=== PATIENT | male | born 1970 | race Caucasian/White ===

== ENCOUNTER → 2017-12-05 | Outpatient (CLI) | payer OTHER ==
--- NOTE | 2017-12-06 11:02 | MR ---
EXAMINATION TYPE: MR brain wo/w con DATE OF EXAM: 12/05/2017 COMPARISON: NONE HISTORY: Seizures, Hypothyroidism, Dizzy, Gadavist 9ml TECHNIQUE: Multiplanar, multisequence images of the brain and brainstem is performed without and with IV contras t, utilizing 9 mL intravenous Gadavist . FINDINGS: Diffusion weighted images demonstrate no evidence of a recent infarct or other diffusion ab normality. There is no extra-axial fluid collection. There are 3 foci of nonspecific white matter ch sekou within the right frontal, left frontal, and right temporal subcortical white matter and deep whi te matter. Additionally nonenhancing 3 mm focus of nonspecific white matter changes noted within the right lateral yaima. These are all most commonly on the basis of remote microvascular injury. No abnor mal enhancement is seen intracranially. The ventricular system and cisternal spaces are normal in siz e and appearance. The brain volume is age appropriate. Midline structures demonstrate normal morphology. The craniocervical junction appears within normal limits. The dural venous sinuses appear patent. The globes are intact. Moderate mucosal thickening is seen within the maxillary, ethmoid, and frontal sinuses. Scant mucosal thickening is seen within the sphenoid sinuses. Mild mucosal thickening is noted within the left frontal sinus. IMPRESSION: 1. No evidence of intracranial mass, abnormal intracranial enhancement or midline shift. No evidence of acute infarct. 2. Four foci of nonspecific white matter change within the subcortical white matter, deep white matte r and right yaima most characteristic of remote microvascular injury. Other etiologies are possible rock ch as vascularity or less likely demyelinating disease. 3. Moderate paranasal sinus disease with most significant mucosal thickening in the ethmoid and maxil linn sinuses.
== END | disposition home or self-care (01) ==
LOC: RADMRIMAIN 12:09
PROVIDERS: ATTEND Internal Medicine
DX: R90.82 White matter disease, unspecified (principal); R42 Dizziness and giddiness; E03.9 Hypothyroidism, unspecified
CPT/HCPCS: 70553; A9581

== ENCOUNTER 2022-01-13 14:25 | Emergency (ER) | payer OTHER ==
[2022-01-13 14:47] VITALS: BP 125/77; PULSE 101; RESP 16; TEMP 98.2
[2022-01-13 15:09] LABS: Basophils # (A) 0.1 k/uL (0-0.2); Basophils % (A) 1 %; Eosinophils # (A) 0.3 k/uL (0-0.7); Eosinophils % (A) 3 %; HCT 46.4 % (39.0-53.0); HGB 15.6 gm/dL (13.0-17.5); Lymphocytes # (A) 2.2 k/uL (1.0-4.8); Lymphocytes % (A) 26 %; MCH 35.6 pg (25.0-35.0); MCHC 33.7 g/dL (31.0-37.0); MCV 105.7 fL (80.0-100.0); Macrocytosis Moderate; Mean Platelet Volume 6.8; Monocytes # (A) 0.7 k/uL (0-1.0); Monocytes % (A) 8 %; Neutrophils # (A) 5.1 k/uL (1.3-7.7); Neutrophils % (A) 59 %; Platelet Count 381 k/uL (150-450); RBC 4.39 m/uL (4.30-5.90); RDW 14.1 % (11.5-15.5); WBC 8.7 k/uL (3.8-10.6)
[2022-01-13 15:19] LABS: INR 0.9 (<1.2); Partial Thromboplastin Time 23.2 sec (22.0-30.0); Prothrombin Time 9.6 sec (9.0-12.0)
[2022-01-13 15:20] LABS: ALT 16 U/L (4-49); African American GFR (CKD) >90 (>60 ml/min/1.73 sqM); Albumin 3.8 g/dL (3.5-5.0); Anion Gap 5 mmol/L; Blood Urea Nitrogen 17 mg/dL (9-20); Calcium 8.7 mg/dL (8.4-10.2); Carbon Dioxide 26 mmol/L (22-30); Chloride 105 mmol/L (98-107); Glucose 87 mg/dL (74-99); Non-African American GFR(CKD) >90 (>60 ml/min/1.73 sqM); Sodium 136 mmol/L (137-145); Total Bilirubin 0.5 mg/dL (0.2-1.3); Total Protein 6.9 g/dL (6.3-8.2)
[2022-01-13 15:42] LABS: AST 26 U/L (17-59); Alkaline Phosphatase 60 U/L (38-126); Magnesium 1.8 mg/dL (1.6-2.3)
--- NOTE | 2022-01-13 16:19 | XR ---
EXAMINATION TYPE: XR chest 2V DATE OF EXAM: 01/13/2022 COMPARISON: Chest x-ray 05/13/2015 HISTORY: Chest pain, abnormal EKG TECHNIQUE: Frontal and lateral views of the chest are obtained. FINDINGS: There is no focal air space opacity, pleural effusion, or pneumothorax seen. Nodular densi ty superimposed over the lateral aspect of the first rib on the left. The cardiac silhouette size is within normal limits. Endotracheal tube is no longer seen. Patient is rotated. The osseous structure s are intact. IMPRESSION: Indeterminate left upper lobe lung nodule. Follow-up is recommended on a nonemergent bas is.
--- NOTE | 2022-01-13 17:51 | ED ---
General Adult HPI - General Chief complaint: Chest Pain Stated complaint: abd ekg/chest pain Time Seen by Provider: 01/13/22 17:30 Source: patient, RN notes reviewed, old records reviewed Mode of arrival: wheelchair Limitations: no limitations - History of Present Illness Initial comments: This is a 51-year-old male who presents emergency department stating that yesterday he had some chest pain and it felt like he couldn't take a deep breath while this occurred it lasted for approximately 2 hours and he was also diaphoretic. Patient states it eventually subsided. Patient denied any radiation of the pain. Patient denies any nausea or vomiting. Patient states he had not eaten recently. Patient stated this morning and again reoccurred lasted for about 2-1/2 hours and he was at his doctor's office they gave him some aspirin and about a half an hour later he was feeling considerably better. Patient states the only differences between today's episodes of yesterday's episode was that today's episode he did not have any diaphoresis. Patient denies any recent fever chills or cough. Patient states he is a smoker does not know about high blood pressure or high cholesterol. Patient states he has some family history of heart disease in his grandparents. Currently is pain-free. - Related Data Home Medications Medication Instructions Recorded Confirmed clonazePAM [KlonoPIN] 1 tab PO BID 07/23/14 07/23/14 Unable To Assess [Unable to Assess] 05/13/15 05/13/15 Previous Rx's Medication Instructions Recorded Ibuprofen [Motrin] 600 mg PO Q6HR PRN #20 tab 07/23/14 Allergies Allergy/AdvReac Type Severity Reaction Status Date / Time promethazine HCl Allergy Unknown Verified 01/13/22 14:46 [From Phenergan] Childhood Review of Systems ROS Statement: Those systems with pertinent positive or pertinent negative responses have been documented in the HPI. ROS Other: All systems not noted in ROS Statement are negative. Past Medical History Past Medical History: Thyroid Disorder History of Any Multi-Drug Resistant Organisms: None Reported Past Surgical History: No Surgical Hx Reported Past Psychological History: Anxiety Smoking Status: Current every day smoker Past Alcohol Use History: None Reported Past Drug Use History: None Reported General Exam - General Exam Comments Initial Comments: GENERAL: Patient is well-developed and well-nourished. Patient is nontoxic and well- hydrated and is in no acute distress. ENT: Neck is soft and supple. No significant lymphadenopathy is noted. Oropharynx is clear. Moist mucous membranes. Neck has full range of motion without eliciting any pain. EYES: The sclera were anicteric and conjunctiva were pink and moist. Extraocular movements were intact and pupils were equal round and reactive to light. Eyelids were unremarkable. PULMONARY: Unlabored respirations. Good breath sounds bilaterally. No audible rales rhonchi or wheezing was noted. CARDIOVASCULAR: There is a regular rate and rhythm without any murmurs gallops or rubs. ABDOMEN: Soft and nontender with normal bowel sounds. SKIN: Skin is clear with no lesions or rashes and otherwise unremarkable. NEUROLOGIC: Patient is alert and oriented x3. Cranial nerves II through XII are grossly intact. Motor and sensory are also intact. Normal speech, volume and content. Symmetrical smile. MUSCULOSKELETAL: Normal extremities with adequate strength and full range of motion. LYMPHATICS: No significant lymphadenopathy is noted PSYCHIATRIC: Normal psychiatric evaluation. Limitations: no limitations Course Vital Signs 01/13/22 14:43 Temperature 98.2 F Pulse Rate 101 H Respiratory 16 Rate Blood Pressure 125/77 O2 Sat by Pulse 99 Oximetry Medical Decision Making - Medical Decision Making EKG shows sinus rhythm at 94 bpm GA interval 250 QRS is a 70 Q-T intervals 320 QTC is 374. Patient's EKG shows no ST segment elevation or depression. I recommended that the patient stay overnight and have his troponin repeated as well as see cardiology. Patient states he is unable to because he has to watch his 12-year-old son and he can't leave home alone. Patient states she'll follow up with cardiology for stress test. I indicated to the patient that it was possible that he could have further chest pain and possible morbidity or mortality if he goes home he stated he understood but he had no choice. - Lab Data Result diagrams: 01/13/22 14:59 01/13/22 14:59 Lab Results 01/13/22 01/13/22 01/13/22 Range/Units 14:59 14:59 14:59 WBC 8.7 (3.8-10.6) k/uL RBC 4.39 (4.30-5.90) m/uL Hgb 15.6 (13.0-17.5) gm/dL Hct 46.4 (39.0-53.0) % MCV 105.7 H (80.0-100.0) fL MCH 35.6 H (25.0-35.0) pg MCHC 33.7 (31.0-37.0) g/dL RDW 14.1 (11.5-15.5) % Plt Count 381 (150-450) k/uL MPV 6.8 Neutrophils % 59 % Lymphocytes % 26 % Monocytes % 8 % Eosinophils % 3 % Basophils % 1 % Neutrophils # 5.1 (1.3-7.7) k/uL Lymphocytes # 2.2 (1.0-4.8) k/uL Monocytes # 0.7 (0-1.0) k/uL Eosinophils # 0.3 (0-0.7) k/uL Basophils # 0.1 (0-0.2) k/uL Macrocytosis Moderate PT 9.6 (9.0-12.0) sec INR 0.9 (<1.2) APTT 23.2 (22.0-30.0) sec Sodium 136 L (137-145) mmol/L Potassium (3.5-5.1) mmol/L Chloride 105 (98-107) mmol/L Carbon Dioxide 26 (22-30) mmol/L Anion Gap 5 mmol/L BUN 17 (9-20) mg/dL Creatinine 0.81 (0.66-1.25) mg/dL Est GFR (CKD-EPI)AfAm >90 (>60 ml/min/1.73 sqM) Est GFR (CKD-EPI)NonAf >90 (>60 ml/min/1.73 sqM) Glucose 87 (74-99) mg/dL Calcium 8.7 (8.4-10.2) mg/dL Magnesium 1.8 (1.6-2.3) mg/dL Total Bilirubin 0.5 (0.2-1.3) mg/dL AST 26 (17-59) U/L ALT 16 (4-49) U/L Alkaline Phosphatase 60 (38-126) U/L Troponin I (0.000-0.034) ng/mL Total Protein 6.9 (6.3-8.2) g/dL Albumin 3.8 (3.5-5.0) g/dL 01/13/22 Range/Units 14:59 WBC (3.8-10.6) k/uL RBC (4.30-5.90) m/uL Hgb (13.0-17.5) gm/dL Hct (39.0-53.0) % MCV (80.0-100.0) fL MCH (25.0-35.0) pg MCHC (31.0-37.0) g/dL RDW (11.5-15.5) % Plt Count (150-450) k/uL MPV Neutrophils % % Lymphocytes % % Monocytes % % Eosinophils % % Basophils % % Neutrophils # (1.3-7.7) k/uL Lymphocytes # (1.0-4.8) k/uL Monocytes # (0-1.0) k/uL Eosinophils # (0-0.7) k/uL Basophils # (0-0.2) k/uL Macrocytosis PT (9.0-12.0) sec INR (<1.2) APTT (22.0-30.0) sec Sodium (137-145) mmol/L Potassium (3.5-5.1) mmol/L Chloride (98-107) mmol/L Carbon Dioxide (22-30) mmol/L Anion Gap mmol/L BUN (9-20) mg/dL Creatinine (0.66-1.25) mg/dL Est GFR (CKD-EPI)AfAm (>60 ml/min/1.73 sqM) Est GFR (CKD-EPI)NonAf (>60 ml/min/1.73 sqM) Glucose (74-99) mg/dL Calcium (8.4-10.2) mg/dL Magnesium (1.6-2.3) mg/dL Total Bilirubin (0.2-1.3) mg/dL AST (17-59) U/L ALT (4-49) U/L Alkaline Phosphatase (38-126) U/L Troponin I <0.012 (0.000-0.034) ng/mL Total Protein (6.3-8.2) g/dL Albumin (3.5-5.0) g/dL Disposition Clinical Impression: Chest pain Disposition: Left Against Medical Advice Is patient prescribed a controlled substance at d/c from ED?: No Referrals: Murray Olivares MD [Primary Care Provider] - 1-2 days Time of Disposition: 17:51
== END 2022-01-13 18:10 | disposition left against medical advice (07) ==
LOC: EC 14:25
DX: R07.9 Chest pain, unspecified (principal); F17.200 Nicotine dependence, unspecified, uncomplicated
CPT/HCPCS: 36415; 71046; 80053; 83735; 84484; 85025; 85610; 85730; 93005; 99285

== ENCOUNTER 2022-04-17 15:38 | Emergency (ER) | payer OTHER ==
[2022-04-17] MEDS ORDERED: SODIUM CHLORIDE 0.9% 1,000 ML IV STA (15:43)
[2022-04-17] MEDS ORDERED: NITROGLYCERIN OINT 1 INCH/GM PACKET TOPICAL STA (15:43)
--- NOTE | 2022-04-17 15:49 | ED ---
General Adult HPI - General Stated complaint: Chest Pain Time Seen by Provider: 04/17/22 15:38 Source: patient, RN notes reviewed, old records reviewed - History of Present Illness Initial comments: This is a 51-year-old male who presents emergency Department complaining of chest pain when he was trying to use his lawn more. Patient also states he was drinking today. Patient states the chest pain was an 8 out of 10 when EMS arrived radiated to his jaw. Patient states she's had a heart attack before he has diabetes and has high cholesterol. Patient states after the second nitroglycerin he took the pain away completely. Patient did also take an aspirin today. Patient denies any recent fever chills or cough per patient denies any symptoms currently. Patient denies any lightheadedness or dizziness. Patient denies headache patient denies numbness weakness per patient denies abdominal pain patient denies nausea vomiting diarrhea. - Related Data Home Medications Medication Instructions Recorded Confirmed clonazePAM [KlonoPIN] 1 tab PO BID 07/23/14 07/23/14 Unable To Assess [Unable to Assess] 05/13/15 05/13/15 Previous Rx's Medication Instructions Recorded Ibuprofen [Motrin] 600 mg PO Q6HR PRN #20 tab 07/23/14 Allergies Allergy/AdvReac Type Severity Reaction Status Date / Time promethazine HCl Allergy Unknown Verified 04/17/22 15:50 [From Phenergan] Childhood Review of Systems ROS Statement: Those systems with pertinent positive or pertinent negative responses have been documented in the HPI. ROS Other: All systems not noted in ROS Statement are negative. Past Medical History Past Medical History: Thyroid Disorder History of Any Multi-Drug Resistant Organisms: None Reported Past Surgical History: No Surgical Hx Reported Past Psychological History: Anxiety Smoking Status: Current every day smoker Past Alcohol Use History: None Reported Past Drug Use History: None Reported General Exam - General Exam Comments Initial Comments: GENERAL: Patient is well-developed and well-nourished. Patient is nontoxic and well- hydrated and is in mild distress. Patient is intoxicated ENT: Neck is soft and supple. No significant lymphadenopathy is noted. Oropharynx is clear. Moist mucous membranes. Neck has full range of motion without eliciting any pain. EYES: The sclera were anicteric and conjunctiva were pink and moist. Extraocular movements were intact and pupils were equal round and reactive to light. Eyelids were unremarkable. PULMONARY: Unlabored respirations. Good breath sounds bilaterally. No audible rales rhonchi or wheezing was noted. CARDIOVASCULAR: There is a regular rate and rhythm without any murmurs gallops or rubs. ABDOMEN: Soft and nontender with normal bowel sounds. SKIN: Skin is clear with no lesions or rashes and otherwise unremarkable. NEUROLOGIC: Patient is alert and oriented x3. Cranial nerves II through XII are grossly intact. Motor and sensory are also intact. Normal speech, volume and content. Symmetrical smile. MUSCULOSKELETAL: Normal extremities with adequate strength and full range of motion. No lower extremity swelling or edema. No calf tenderness. LYMPHATICS: No significant lymphadenopathy is noted PSYCHIATRIC: Normal psychiatric evaluation. 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 Patient's QTc is 391. Patient's EKG shows no ST segment elevation or depression. Chest x-ray shows no acute abnormality Patient was highly intoxicated. Patient had no chest pain throughout his ED stay. Patient initially agreed to stay but after a while he decided to leave AMA and his decided that she would take him home even though she preferred to stay. Patient understands the consequences potentially leaving. - Lab Data Result diagrams: 04/17/22 15:54 04/17/22 15:54 Lab Results 04/17/22 04/17/22 04/17/22 Range/Units 15:54 15:54 15:54 WBC 9.8 (3.8-10.6) k/uL RBC 5.25 (4.30-5.90) m/uL Hgb 16.8 (13.0-17.5) gm/dL Hct 52.5 (39.0-53.0) % MCV 100.2 H (80.0-100.0) fL MCH 32.0 (25.0-35.0) pg MCHC 32.0 (31.0-37.0) g/dL RDW 13.8 (11.5-15.5) % Plt Count 314 (150-450) k/uL MPV 7.3 Neutrophils % 68 % Lymphocytes % 24 % Monocytes % 6 % Eosinophils % 1 % Basophils % 1 % Neutrophils # 6.7 (1.3-7.7) k/uL Lymphocytes # 2.3 (1.0-4.8) k/uL Monocytes # 0.5 (0-1.0) k/uL Eosinophils # 0.1 (0-0.7) k/uL Basophils # 0.1 (0-0.2) k/uL PT 9.9 (9.0-12.0) sec INR 0.9 (<1.2) APTT 24.0 (22.0-30.0) sec Sodium 139 (137-145) mmol/L Potassium 4.5 (3.5-5.1) mmol/L Chloride 108 H (98-107) mmol/L Carbon Dioxide 23 (22-30) mmol/L Anion Gap 8 mmol/L BUN 12 (9-20) mg/dL Creatinine 0.97 (0.66-1.25) mg/dL Est GFR (CKD-EPI)AfAm >90 (>60 ml/min/1.73 sqM) Est GFR (CKD-EPI)NonAf >90 (>60 ml/min/1.73 sqM) Glucose 91 (74-99) mg/dL Calcium 8.7 (8.4-10.2) mg/dL Magnesium 2.1 (1.6-2.3) mg/dL Total Bilirubin 0.4 (0.2-1.3) mg/dL AST 25 (17-59) U/L ALT 13 (4-49) U/L Alkaline Phosphatase 75 (38-126) U/L Troponin I (0.000-0.034) ng/mL Total Protein 6.9 (6.3-8.2) g/dL Albumin 4.0 (3.5-5.0) g/dL Serum Alcohol 197 mg/dL 04/17/22 Range/Units 15:54 WBC (3.8-10.6) k/uL RBC (4.30-5.90) m/uL Hgb (13.0-17.5) gm/dL Hct (39.0-53.0) % MCV (80.0-100.0) fL MCH (25.0-35.0) pg MCHC (31.0-37.0) g/dL RDW (11.5-15.5) % Plt Count (150-450) k/uL MPV Neutrophils % % Lymphocytes % % Monocytes % % Eosinophils % % Basophils % % Neutrophils # (1.3-7.7) k/uL Lymphocytes # (1.0-4.8) k/uL Monocytes # (0-1.0) k/uL Eosinophils # (0-0.7) k/uL Basophils # (0-0.2) k/uL PT (9.0-12.0) sec INR (<1.2) APTT (22.0-30.0) sec Sodium (137-145) mmol/L Potassium (3.5-5.1) mmol/L Chloride (98-107) mmol/L Carbon Dioxide (22-30) mmol/L Anion Gap mmol/L BUN (9-20) mg/dL Creatinine (0.66-1.25) mg/dL Est GFR (CKD-EPI)AfAm (>60 ml/min/1.73 sqM) Est GFR (CKD-EPI)NonAf (>60 ml/min/1.73 sqM) Glucose (74-99) mg/dL Calcium (8.4-10.2) mg/dL Magnesium (1.6-2.3) mg/dL Total Bilirubin (0.2-1.3) mg/dL AST (17-59) U/L ALT (4-49) U/L Alkaline Phosphatase (38-126) U/L Troponin I <0.012 (0.000-0.034) ng/mL Total Protein (6.3-8.2) g/dL Albumin (3.5-5.0) g/dL Serum Alcohol mg/dL Disposition Clinical Impression: Chest pain, Alcohol intoxication Disposition: Left Against Medical Advice Referrals: Murray Olivares MD [Primary Care Provider] - 1-2 days Time of Disposition: 17:14
[2022-04-17 15:50] VITALS: RESP 18
[2022-04-17 16:16] LABS: INR 0.9 (<1.2); Prothrombin Time 9.9 sec (9.0-12.0)
[2022-04-17 16:19] LABS: Basophils # (A) 0.1 k/uL (0-0.2); Basophils % (A) 1 %; Eosinophils # (A) 0.1 k/uL (0-0.7); Eosinophils % (A) 1 %; HCT 52.5 % (39.0-53.0); HGB 16.8 gm/dL (13.0-17.5); Lymphocytes # (A) 2.3 k/uL (1.0-4.8); Lymphocytes % (A) 24 %; MCV 100.2 fL (80.0-100.0); Mean Platelet Volume 7.3; Monocytes # (A) 0.5 k/uL (0-1.0); Monocytes % (A) 6 %; Neutrophils # (A) 6.7 k/uL (1.3-7.7); Neutrophils % (A) 68 %; Platelet Count 314 k/uL (150-450); RBC 5.25 m/uL (4.30-5.90); RDW 13.8 % (11.5-15.5); WBC 9.8 k/uL (3.8-10.6)
[2022-04-17 16:25] LABS: ALT 13 U/L (4-49); AST 25 U/L (17-59); African American GFR (CKD) >90 (>60 ml/min/1.73 sqM); Alkaline Phosphatase 75 U/L (38-126); Anion Gap 8 mmol/L; Blood Urea Nitrogen 12 mg/dL (9-20); Calcium 8.7 mg/dL (8.4-10.2); Carbon Dioxide 23 mmol/L (22-30); Chloride 108 mmol/L (98-107); Glucose 91 mg/dL (74-99); Magnesium 2.1 mg/dL (1.6-2.3); Non-African American GFR(CKD) >90 (>60 ml/min/1.73 sqM); Potassium 4.5 mmol/L (3.5-5.1); Sodium 139 mmol/L (137-145); Total Bilirubin 0.4 mg/dL (0.2-1.3); Total Protein 6.9 g/dL (6.3-8.2)
--- NOTE | 2022-04-17 16:30 | XR ---
EXAMINATION TYPE: XR chest 2V DATE OF EXAM: 04/17/2022 4:21 PM COMPARISON: Chest radiographs from 01/13/2022. TECHNIQUE: XR chest 2V Frontal and lateral views of the chest. CLINICAL INDICATION:Male, 51 years old with history of Chest Pain; FINDINGS: Lungs/Pleura: There is no evidence of pleural effusion, focal consolidation, or pneumothorax. Unchan ged left upper lobe nodular-like area measuring 6 mm. Pulmonary vascularity: Unremarkable. Heart/mediastinum: Cardiomediastinal silhouette is unremarkable. Musculoskeletal: No acute osseous pathology. IMPRESSION: No acute cardiopulmonary disease/process. Unchanged left upper lobe probable calcified granuloma. This could be confirmed with CT chest in outp atient basis.
[2022-04-17 16:39] LABS: Alcohol 197 mg/dL
[2022-04-17 17:33] VITALS: BP 107/60; PULSE 101; TEMP 98
== END 2022-04-17 17:33 | disposition left against medical advice (07) ==
LOC: EC 15:38
DX: F10.129 Alcohol abuse with intoxication, unspecified (principal); R07.9 Chest pain, unspecified; F17.200 Nicotine dependence, unspecified, uncomplicated; Y90.6 Blood alcohol level of 120-199 mg/100 ml; Z53.29 Procedure and treatment not carried out because of patient's decision for other reasons; Z88.8 Allergy status to other drugs, medicaments and biological substances
CPT/HCPCS: 36415; 93005; 80053; 83735; 84484; 85025; 85610; 85730; 71046; 99285; G0480; 80320; 96360; 96361

== ENCOUNTER → 2022-05-28 | Outpatient (CLI) | payer OTHER ==
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
== END ==
LOC: SLEEP 11:17
PROVIDERS: ATTEND Internal Medicine
DX: G47.33 Obstructive sleep apnea (adult) (pediatric) (principal); I10 Essential (primary) hypertension; E03.9 Hypothyroidism, unspecified; I25.10 Atherosclerotic heart disease of native coronary artery without angina pectoris; Z86.73 Personal history of transient ischemic attack (TIA), and cerebral infarction without residual deficits; F51.04 Psychophysiologic insomnia; Z79.890 Hormone replacement therapy; F17.210 Nicotine dependence, cigarettes, uncomplicated; Z88.8 Allergy status to other drugs, medicaments and biological substances
CPT/HCPCS: 99211

== ENCOUNTER 2022-07-01 19:59 | Emergency (ER) | payer OTHER ==
[2022-07-01 20:13] VITALS: BP 115/80; PULSE 112; RESP 16; TEMP 98.1
--- NOTE | 2022-07-01 20:42 | ED ---
General Adult HPI - General Chief complaint: Alcohol Stated complaint: ETOH Time Seen by Provider: 07/01/22 20:11 Source: patient, EMS Mode of arrival: EMS Limitations: no limitations - History of Present Illness Initial comments: Dictation was produced using Compiere dictation software. please excuse any grammatical, word or spelling errors. Chief Complaint: 51-year-old male brought in by EMS for alcohol intoxication History of Present Illness: Patient's 51-year-old male who presents to the emergency department for alcohol intoxication. EMS was called by patient's ex- fiance. He doesn't live at the same residence. Johnny provided history of present illness over the phone. She states she called EMS because patient has been showing signs of erratic behavior. He takes the medications for recent surgery and he is also on heart medications and hasn't 85% blockage in one of his coronary arteries. Scheduled to have that pro cedure performed in the near future. He's been taking alcohol and taking his pain medications while not taking his cardiac and thyroid medications. Patient denies any suicidal or homicidal ideation. Patient has any complaints at this time. Patient states he does not drink alcohol on a regular basis. The ROS documented in this emergency department record has been reviewed and confirmed by me. Those systems with pertinent positive or negative responses have been documented in the HPI. All other systems are other negative and/or noncontributory. PHYSICAL EXAM: General Impression: Alert and oriented x3, not in acute distress HEENT: Normocephalic atraumatic, extra-ocular movements intact, pupils equal and reactive to light bilaterally, mucous membranes moist. Cardiovascular: Heart regular rate and rhythm Chest: Able to complete full sentences, no retractions, no tachypnea Abdomen: abdomen soft, non-tender, non-distended, no organomegaly Musculoskeletal: Pulses present and equal in all extremities, no peripheral edema Motor: no focal deficits noted Neurological: CN II-XII grossly intact, no focal motor or sensory deficits noted and laboratory with no calm medications Skin: Intact with no visualized rashes Psych: Normal affect and mood ED course: 51-year-old male by EMS from home after his ex-fiance called EMS on him for alcohol intoxication. Patient is coherent. He did admit to consuming alcohol today. Patient refusing IV blood draw, EKG or manager company. Patient is well-appearing. He does appear to be mildly inebriated however he is coherent and understandable. Fiance states that patient has legal residence at their house. Ex-antelmo reports that she refuses to come to pick him up. EMS reported that patient was wandering into other people's houses. Patient states that he was helping his neighbor fixed clogged drain. States that he was invited over. Patient's ex-antelmo Long ultimately did come to picking table worker the patient. Patient reevaluated at 10:10 PM found to be stable medical condition. Patient is agreeable at discharge he is good disposition. - Related Data Home Medications Medication Instructions Recorded Confirmed clonazePAM [KlonoPIN] 1 tab PO BID 07/23/14 07/23/14 Unable To Assess [Unable to Assess] 05/13/15 05/13/15 Previous Rx's Medication Instructions Recorded Ibuprofen [Motrin] 600 mg PO Q6HR PRN #20 tab 07/23/14 Allergies Allergy/AdvReac Type Severity Reaction Status Date / Time promethazine HCl Allergy Unknown Verified 04/17/22 15:50 [From Phenergan] Childhood Review of Systems ROS Statement: Those systems with pertinent positive or pertinent negative responses have been documented in the HPI. ROS Other: All systems not noted in ROS Statement are negative. Past Medical History Past Medical History: Thyroid Disorder History of Any Multi-Drug Resistant Organisms: None Reported Past Surgical History: No Surgical Hx Reported Past Psychological History: Anxiety Smoking Status: Current every day smoker Past Alcohol Use History: None Reported Past Drug Use History: None Reported General Exam Limitations: no limitations Course Vital Signs 07/01/22 20:09 Temperature 98.1 F Pulse Rate 112 H Respiratory 16 Rate Blood Pressure 115/80 O2 Sat by Pulse 98 Oximetry Disposition Clinical Impression: Alcohol intoxication Disposition: HOME SELF-CARE Condition: Fair Instructions (If sedation given, give patient instructions): Alcohol Intoxication (ED) Is patient prescribed a controlled substance at d/c from ED?: No Referrals: Murray Olivares MD [Primary Care Provider] - 1-2 days Time of Disposition: 22:07
== END 2022-07-01 22:08 | disposition home or self-care (01) ==
LOC: EC 19:59
DX: F10.929 Alcohol use, unspecified with intoxication, unspecified (principal); E07.9 Disorder of thyroid, unspecified; F41.9 Anxiety disorder, unspecified; F17.200 Nicotine dependence, unspecified, uncomplicated; Z88.8 Allergy status to other drugs, medicaments and biological substances; Z79.899 Other long term (current) drug therapy
CPT/HCPCS: 99284

== ENCOUNTER 2022-07-05 18:54 | Emergency (ER) | payer OTHER ==
[2022-07-05 19:11] VITALS: BP 138/90; PULSE 97; RESP 18; TEMP 97
--- NOTE | 2022-07-05 23:04 | ED ---
Alcohol HPI - General Chief Complaint: Alcohol Stated Complaint: EPS eval Time Seen by Provider: 07/05/22 23:03 Source: patient, RN notes reviewed, old records reviewed Mode of arrival: wheelchair Limitations: no limitations - History of Present Illness Initial Comments: This is a 51-year-old male to the emergency department for evaluation patient poor strain secondary significant intoxication. Patient presents today under alcohol intoxication family was hoping patient can get her go through detox. Patient refusing to stay in the hospital currently. Patient is not homicidal or suicidal. 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(s) Previous Visits for Alcohol Intoxication?: Yes Recent Trauma: No Associated Symptoms: denies other symptoms Treatments Prior to Arrival: none Chronic Alcohol Use: Yes - Related Data Home Medications Medication Instructions Recorded Confirmed clonazePAM [KlonoPIN] 1 tab PO BID 07/23/14 07/23/14 Unable To Assess [Unable to Assess] 05/13/15 05/13/15 Previous Rx's Medication Instructions Recorded Ibuprofen [Motrin] 600 mg PO Q6HR PRN #20 tab 07/23/14 Allergies Allergy/AdvReac Type Severity Reaction Status Date / Time promethazine HCl Allergy Unknown Verified 07/05/22 19:05 [From Phenergan] Childhood Review of Systems ROS Statement: Those systems with pertinent positive or pertinent negative responses have been documented in the HPI. ROS Other: All systems not noted in ROS Statement are negative. Past Medical History Past Medical History: Myocardial Infarction ([place]), Thyroid Disorder History of Any Multi-Drug Resistant Organisms: None Reported Past Surgical History: No Surgical Hx Reported Past Psychological History: Anxiety Smoking Status: Current every day smoker Past Alcohol Use History: None Reported Past Drug Use History: None Reported General Exam Limitations: no limitations General appearance: appears intoxicated Head exam: Present: atraumatic, normocephalic, normal inspection Eye exam: Present: normal appearance, PERRL, EOMI. Absent: scleral icterus, conjunctival injection, periorbital swelling ENT exam: Present: normal exam, mucous membranes moist Neck exam: Present: normal inspection. Absent: tenderness, meningismus, lymphadenopathy Respiratory exam: Present: normal lung sounds bilaterally. Absent: respiratory distress, wheezes, rales, rhonchi, stridor Cardiovascular Exam: Present: regular rate, normal rhythm, normal heart sounds. Absent: systolic murmur, diastolic murmur, rubs, gallop, clicks GI/Abdominal exam: Present: soft, normal bowel sounds. Absent: distended, tenderness, guarding, rebound, rigid Extremities exam: Present: normal inspection, full ROM, normal capillary refill. Absent: tenderness, pedal edema, joint swelling, calf tenderness Back exam: Present: normal inspection Neurological exam: Present: alert, oriented X3, CN II-XII intact Psychiatric exam: Present: normal affect, normal mood Skin exam: Present: warm, dry, intact, normal color. Absent: rash Course Vital Signs 07/05/22 19:05 Temperature 97 F L Pulse Rate 97 Respiratory 18 Rate Blood Pressure 138/90 O2 Sat by Pulse 100 Oximetry - Reevaluation(s) Reevaluation #1: 07/06/22 00:22 Records reviewed Reevaluation #2: 07/06/22 00:22 Patient continues to refuse to stay, family his neck and petition patient for psychiatric evaluation Reevaluation #3: 07/06/22 00:22 Patient will be discharged home Medical Decision Making - Medical Decision Making 51 male to the emergency department for evaluation. Patient presented under alcohol intoxication, offered admission to hospital refuses, patient's family does not petition for psychiatric evaluation although patient is not homicidal or suicidal. Patient can be discharged home Disposition Clinical Impression: Alcohol intoxication Disposition: HOME SELF-CARE Condition: Fair Instructions (If sedation given, give patient instructions): Alcohol I ntoxication (ED) Is patient prescribed a controlled substance at d/c from ED?: No Referrals: Murray Olivares MD [Primary Care Provider] - 1-2 days Time of Disposition: 00:15
== END 2022-07-06 10:52 | disposition home or self-care (01) ==
LOC: EC 18:54
DX: F10.929 Alcohol use, unspecified with intoxication, unspecified (principal); F41.9 Anxiety disorder, unspecified; I21.9 Acute myocardial infarction, unspecified; E07.9 Disorder of thyroid, unspecified; F17.200 Nicotine dependence, unspecified, uncomplicated; Z88.8 Allergy status to other drugs, medicaments and biological substances
CPT/HCPCS: 99283

== ENCOUNTER 2022-07-07 19:11 | Inpatient (IN) | payer OTHER ==
--- NOTE | 2022-07-07 23:33 | ED ---
Alcohol HPI - General Chief Complaint: Alcohol Stated Complaint: Mouth pain/Detox Time Seen by Provider: 07/07/22 23:25 Source: patient, RN notes reviewed, old records reviewed Mode of arrival: ambulatory - History of Present Illness Initial Comments: This is a 51-year-old male to the emergency department for evaluation. Multiple ER visits this week for similar issue. His walk out both prior times. Today for alcohol intoxication alcohol withdrawal, significant intoxication currently. Patient is weak lightheaded dizzy does not feel well feel sick nauseous vomiting. 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(s) Previous Visits for Alcohol Intoxication?: Yes Recent Trauma: No Associated Symptoms: nausea, vomiting Treatments Prior to Arrival: none Chronic Alcohol Use: Yes - Related Data Home Medications Medication Instructions Recorded Confirmed clonazePAM [KlonoPIN] 1 tab PO BID 07/23/14 07/23/14 Unable To Assess [Unable to Assess] 05/13/15 05/13/15 Previous Rx's Medication Instructions Recorded Ibuprofen [Motrin] 600 mg PO Q6HR PRN #20 tab 07/23/14 Allergies Allergy/AdvReac Type Severity Reaction Status Date / Time promethazine HCl Allergy Unknown Verified 07/07/22 21:16 [From Phenergan] Childhood Review of Systems ROS Statement: Those systems with pertinent positive or pertinent negative responses have been documented in the HPI. ROS Other: All systems not noted in ROS Statement are negative. Past Medical History Past Medical History: Myocardial Infarction ([place]), Thyroid Disorder History of Any Multi-Drug Resistant Organisms: None Reported Past Surgical History: No Surgical Hx Reported Past Psychological History: Anxiety Smoking Status: Current every day smoker Past Alcohol Use History: None Reported Past Drug Use History: None Reported General Exam General appearance: alert, in no apparent distress, appears intoxicated Head exam: Present: atraumatic, normocephalic, normal inspection Eye exam: Present: normal appearance, PERRL, EOMI. Absent: scleral icterus, conjunctival injection, periorbital swelling ENT exam: Present: normal exam, mucous membranes dry Neck exam: Present: normal inspection. Absent: tenderness, meningismus, lymphadenopathy Respiratory exam: Present: normal lung sounds bilaterally. Absent: respiratory distress, wheezes, rales, rhonchi, stridor Cardiovascular Exam: Present: normal rhythm, tachycardia, normal heart sounds. Absent: systolic murmur, diastolic murmur, rubs, gallop, clicks GI/Abdominal exam: Present: soft, normal bowel sounds. Absent: distended, tenderness, guarding, rebound, rigid Extremities exam: Present: normal inspection, full ROM, normal capillary refill. Absent: tenderness, pedal edema, joint swelling, calf tenderness Back exam: Present: normal inspection Neurological exam: Present: alert, oriented X3, CN II-XII intact Psychiatric exam: Present: normal affect, normal mood Skin exam: Present: warm, dry, intact, normal color. Absent: rash Course Vital Signs 07/07/22 21:12 Temperature 98.3 F Pulse Rate 119 H Respiratory 16 Rate Blood Pressure 145/75 O2 Sat by Pulse 94 L Oximetry - Reevaluation(s) Reevaluation #1: 07/08/22 00:23 Medical records reviewed Reevaluation #2: 07/08/22 01:40 patient has no improvement here in the ER Reevaluation #3: 07/08/22 01:40 patient informed results and questions answered - Consultations Consultation #1: spoke with CECILY to agrees to admit the patient Medical Decision Making - Medical Decision Making 51 male to be admitted for alcohol intoxication severe. Alcohol abuse with pending withdrawal pancreatitis, dehydration. - Lab Data Result diagrams: 07/07/22 22:14 07/07/22 22:14 Lab Results 07/07/22 07/07/22 Range/Units 22:14 22:14 WBC 8.6 (3.8-10.6) k/uL RBC 5.03 (4.30-5.90) m/uL Hgb 16.9 (13.0-17.5) gm/dL Hct 49.2 (39.0-53.0) % MCV 97.9 (80.0-100.0) fL MCH 33.7 (25.0-35.0) pg MCHC 34.4 (31.0-37.0) g/dL RDW 14.1 (11.5-15.5) % Plt Count 245 (150-450) k/uL MPV 7.5 Neutrophils % 64 % Lymphocytes % 30 % Monocytes % 3 % Eosinophils % 2 % Basophils % 1 % Neutrophils # 5.5 (1.3-7.7) k/uL Lymphocytes # 2.5 (1.0-4.8) k/uL Monocytes # 0.3 (0-1.0) k/uL Eosinophils # 0.2 (0-0.7) k/uL Basophils # 0.1 (0-0.2) k/uL Sodium 138 (137-145) mmol/L Potassium 4.2 (3.5-5.1) mmol/L Chloride 102 (98-107) mmol/L Carbon Dioxide 22 (22-30) mmol/L Anion Gap 14 mmol/L BUN 14 (9-20) mg/dL Creatinine 1.06 (0.66-1.25) mg/dL Est GFR (CKD-EPI)AfAm >90 (>60 ml/min/1.73 sqM) Est GFR (CKD-EPI)NonAf 81 (>60 ml/min/1.73 sqM) Glucose 92 (74-99) mg/dL Calcium 8.3 L (8.4-10.2) mg/dL Phosphorus 3.6 (2.5-4.5) mg/dL Magnesium 1.9 (1.6-2.3) mg/dL Total Bilirubin 0.5 (0.2-1.3) mg/dL AST 52 (17-59) U/L ALT 22 (4-49) U/L Alkaline Phosphatase 79 (38-126) U/L Total Protein 6.9 (6.3-8.2) g/dL Albumin 4.2 (3.5-5.0) g/dL Lipase 539 H (23-300) U/L TSH 52.300 H (0.465-4.680) mIU/L Serum Alcohol 267 H* mg/dL Disposition Clinical Impression: Alcohol intoxication, Alcohol withdrawal delirium, Depression, Pancreatitis Disposition: ADMITTED IP TO THIS HOSP Condition: Fair Is patient prescribed a controlled substance at d/c from ED?: No Referrals: Murary Oliavres MD [Primary Care Provider] - 1-2 days Time of Disposition: 01:35
[2022-07-07] MEDS ORDERED: SODIUM CHLORIDE 0.9% 1,000 ML IV STA ×2 (23:50)
[2022-07-07] MEDS ORDERED: LORazepam 2 MG/ML INJ IV STA (23:50)
[2022-07-07] MEDS ORDERED: SODIUM CHLORIDE 0.9% 500 ML 500 ML IV STA (23:50)
[2022-07-08 00:27] LABS: Basophils # (A) 0.1 k/uL (0-0.2); Basophils % (A) 1 %; Eosinophils # (A) 0.2 k/uL (0-0.7); Eosinophils % (A) 2 %; HCT 49.2 % (39.0-53.0); HGB 16.9 gm/dL (13.0-17.5); Lymphocytes # (A) 2.5 k/uL (1.0-4.8); Lymphocytes % (A) 30 %; MCH 33.7 pg (25.0-35.0); MCHC 34.4 g/dL (31.0-37.0); MCV 97.9 fL (80.0-100.0); Mean Platelet Volume 7.5; Monocytes # (A) 0.3 k/uL (0-1.0); Monocytes % (A) 3 %; Neutrophils # (A) 5.5 k/uL (1.3-7.7); Neutrophils % (A) 64 %; Platelet Count 245 k/uL (150-450); RBC 5.03 m/uL (4.30-5.90); RDW 14.1 % (11.5-15.5); WBC 8.6 k/uL (3.8-10.6)
[2022-07-08 00:40] LABS: ALT 22 U/L (4-49); AST 52 U/L (17-59); African American GFR (CKD) >90 (>60 ml/min/1.73 sqM); Albumin 4.2 g/dL (3.5-5.0); Alkaline Phosphatase 79 U/L (38-126); Anion Gap 14 mmol/L; Blood Urea Nitrogen 14 mg/dL (9-20); Calcium 8.3 mg/dL (8.4-10.2); Carbon Dioxide 22 mmol/L (22-30); Chloride 102 mmol/L (98-107); Glucose 92 mg/dL (74-99); Lipase 539 U/L (23-300); Magnesium 1.9 mg/dL (1.6-2.3); Non-African American GFR(CKD) 81 (>60 ml/min/1.73 sqM); Phosphorus 3.6 mg/dL (2.5-4.5); Potassium 4.2 mmol/L (3.5-5.1); Sodium 138 mmol/L (137-145); Total Bilirubin 0.5 mg/dL (0.2-1.3); Total Protein 6.9 g/dL (6.3-8.2)
[2022-07-08 00:51] LABS: Alcohol 267 mg/dL
[2022-07-08] MEDS ORDERED: THIAMINE 100 MG/ML 2 ML VIAL IM STA (01:36)
[2022-07-08] MEDS ORDERED: NALOXONE 0.4 MG/ML 1 ML VIAL IV PRN (01:36)
[2022-07-08] MEDS ORDERED: LORazepam 2 MG/ML INJ IV PRN ×3 (01:36)
[2022-07-08] MEDS ORDERED: ONDANSETRON 4 MG/2 ML VIAL IVP PRN (01:37)
[2022-07-08] MEDS ORDERED: MORPHINE SULFATE 4 MG/ML SYRINGE IV PRN (01:37)
[2022-07-08 02:08] LABS: T4, Free (Free Thyroxine) 0.53 ng/dL (0.78-2.19)
[2022-07-08] MEDS: chlordiazePOXIDE 25 MG CAP PO SCH ×5 (09:05→20:42)
[2022-07-08] MEDS: DEXTROSE 5%-0.45% NACL 1,000 ML IV SCH ×2 (09:05→17:17)
[2022-07-08] MEDS: PANTOPRAZOLE 40 MG/10 ML VIAL IV SCH (09:18)
[2022-07-08] MEDS: MULTIVITAMINS, THERA 1 EACH TAB PO SCH (09:18)
[2022-07-08] MEDS: FOLIC ACID 1 MG TAB PO SCH (09:18)
[2022-07-08] MEDS ORDERED: ALBUTEROL NEBULIZED 2.5 MG/3 ML INHALATION PRN (12:39)
[2022-07-08] MEDS ORDERED: NITROGLYCERIN SL TABS 0.4 MG TAB SUBLINGUAL PRN (12:39)
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
[2022-07-08] MEDS: METOPROLOL SUCCINATE (ER) 25 MG TAB.ER.24H PO SCH (14:38)
--- NOTE | 2022-07-08 14:49 | P.CN ---
Psychiatric Consult - . Consult date: 07/08/22 Consult:: 07/08/22 14:48 IDENTIFYING DATA: This patient is a 51-year-old male with significant history of anxiety disorder and alcohol use disorder presented to our hospital for alcohol intoxication and withdrawal HISTORY OF PRESENT ILLNESS: The patient presented to the hospital on 07/07/2022 for acute alcohol intoxication. The patient has had multiple visits to the emergency department for this similar issue and has walked out AGAINST MEDICAL ADVICE each time. Psychiatry has been consulted for further evaluation and management of depression and anxiety. Upon assessment by this provider, the patient reports that he's been feeling increasingly anxious since discussing with his surgeon the possibility of a DO NOT RESUSCITATE option in regards to his upcoming surgery. The patient states that he's been feeling increasingly anxious with his upcoming procedure for his cardiac health and has been coping by increasing his alcohol use. The patient reports that he has been drinking up to a fifth of liquor per day for the past week. He does report a significant history of alcohol use disorder and has had I history of treatment with disulfiram in the past. Currently, the patient is denying any suicidal or homicidal ideation, intention, and/or plan. He is not reporting any auditory or visual hallucinations. He reports no paranoia or delusions. Patient is currently requesting inpatient substance-abuse rehabilitation however is concerned that this would interrupt his upcoming surgery. PSYCHIATRIC HISTORY: Patient has a history of anxiety. The patient is able to recall bankruptcy prescribed Klonopin and venlafaxine. Patient denies any previous psychiatric hospitalizations. Patient denies any psychiatric outpatient follow-up. Patient denies any history of suicide attempts in the past. PAST MEDICAL HISTORY: Past Medical History: Myocardial Infarction (NH), Thyroid Disorder History of Any Multi-Drug Resistant Organisms: None Reported Past Surgical History: No Surgical Hx Reported Past Psychological History: Anxiety Smoking Status: Current every day smoker Past Alcohol Use History: None Reported Past Drug Use History: None Reported ALLERGIES: Promethazine CHEMICAL DEPENDENCY HISTORY: The patient portrays been drinking up to a fifth of liquor per day. The patient also smokes cigars daily. FAMILY PSYCHIATRIC/SUBSTANCE USE HISTORY: No reported family psychiatric history. SOCIAL HISTORY: Patient is elicited a single however does have a significant other named Mercedes. MENTAL STATUS EXAM: General Appearance: Patient appears to be stated age is alert, pleasant, and cooperative. Patient appears to have fair hygiene and grooming wearing hospital gown with fair eye contact. Behavior: Displays elevated psychomotor activity Speech: Patient's speech is fluent and nonpressured. Mood/Affect: Patient reports their mood is "very nervous", affect is congruent Suicidality/Homicidality: Patient denies having any suicidal or homicidal ideation intent or plan. Perceptions: Patient denies any visual hallucinations and denies any auditory hallucinations Though content/process: There is no evidence of any delusional thought content and thought process is linear and goal-directed. Memory and concentration: AOX3, grossly intact for the purposes of this session. Can spell "WORLD" backwards Judgment and insight: Fair IMPRESSIONS: Generalized anxiety disorder Alcohol use disorder PLAN: Continue medical management for withdrawal. Agree with Librium scheduled. We will not adjust any of his psychotropic medications at this time. The patient is expressing elevated anxiety secondary to acute alcohol withdrawal. It is recommended that he follows up in outpatient setting for further evaluation and management for anxiety disorder. Recommend discussion of the risks, benefits, treatment alternatives of his upcoming cardiac surgery. -PATIENT WAS HIGHLY ADVISED NOT TO MIX KLONOPIN AND ETOH. RECOMMEND PRIMARY DISCONTINUE SCRIPT OF KLONOPIN. -At this time patient DOES NOT meet criteria for inpatient psychiatric admission. The patient is not presented with imminent risk of harm to self or others. Primary diagnosis for this patient is generalized anxiety disorder not always disorder. He is vehemently denying any suicidal or homicidal ideation. -Delirium precautions recommended with patient including - avoiding use of narcotics and EYELET MAKER sedatives, limit anticholinergic medications when possible, frequent re-orientation, minimize use of restraints, open window shades during the day and close them at night -Would recommend the following medication changes/additions: No medication recommendations. Consider increasing effexor but we will defer at this time as he has significant cardiac history. -Patient does not require one-to-one sitter. He is desiring to be transferred to rehab however has an upcoming surgery. -Psychiatry will sign off at this point, please contact with any questions. 07/08/22 14:48
[2022-07-08] MEDS ORDERED: LORazepam 1 MG/0.5 ML VIAL IV PRN ×3 (15:24)
[2022-07-08] MEDS: NICOTINE 7MG/24HR PATCH TRANSDERM SCH (16:55)
[2022-07-08] MEDS: THIAMINE 100 MG TAB PO SCH (16:55)
[2022-07-08] MEDS: ATORVASTATIN 10 MG TAB PO SCH (20:42)
[2022-07-09] MEDS: chlordiazePOXIDE 25 MG CAP PO SCH ×3 (03:34→09:17)
[2022-07-09] MEDS: LEVOTHYROXINE 75 MCG TAB PO SCH (05:12)
[2022-07-09] MEDS ORDERED: METOPROLOL SUCCINATE (ER) 25 MG TAB.ER.24H PO SCH (09:00)
[2022-07-09] MEDS ORDERED: VENLAFAXINE HCL ER 75 MG CAP PO SCH ×2 (09:00)
[2022-07-09 09:15] LABS: Basophils # (A) 0.05 X 10*3/uL (0.00-0.10); Basophils % (A) 0.4 %; Eosinophils # (A) 0.22 X 10*3/uL (0.04-0.35); Eosinophils % (A) 1.8 %; HCT 46.1 % (39.6-50.0); HGB 15.7 g/dL (13.0-17.0); Immature Grans, Automated 0.3 %; Lymphocytes # (A) 1.91 X 10*3/uL (0.90-5.00); Lymphocytes % (A) 15.5 %; MCH 32.6 pg (27.0-32.0); MCHC 34.1 g/dL (32.0-37.0); MCV 95.6 fL (80.0-97.0); Mean Platelet Volume 10.1 fL (9.5-12.2); Monocytes # (A) 0.87 X 10*3/uL (0.20-1.00); Monocytes % (A) 7.1 %; NRBC Per 100 WBC 0 /100 WBCS (0.0-0.0); Neutrophils # (A) 9.21 X 10*3/uL (1.80-7.70); Neutrophils % (A) 74.9 %; Platelet Count 211 X 10*3/uL (140-440); RBC 4.82 X 10*6/uL (4.40-5.60); RDW 14.2 % (11.5-14.5)
[2022-07-09] MEDS: PANTOPRAZOLE 40 MG/10 ML VIAL IV SCH (09:16)
[2022-07-09] MEDS: METOPROLOL SUCCINATE (ER) 25 MG TAB.ER.24H PO SCH ×2 (09:17→20:47)
[2022-07-09] MEDS: THIAMINE 100 MG TAB PO SCH (09:17)
[2022-07-09] MEDS: MULTIVITAMINS, THERA 1 EACH TAB PO SCH (09:17)
[2022-07-09] MEDS: FOLIC ACID 1 MG TAB PO SCH (09:17)
[2022-07-09] MEDS: VENLAFAXINE HCL ER 75 MG CAP PO SCH (09:18)
[2022-07-09] MEDS: NICOTINE 7MG/24HR PATCH TRANSDERM SCH (09:18)
[2022-07-09] MEDS: CALCIUM CARBONATE LIQUID 500 MG/5 ML CUP PO SCH ×3 (11:24→20:48)
[2022-07-09] MEDS: diazePAM 2 MG TAB PO SCH ×3 (11:24→20:48)
[2022-07-09 11:27] LABS: African American GFR (CKD) 99.8 (60.0-200.0); BUN/Creat Ratio 9.6 Ratio (12.00-20.00); Blood Urea Nitrogen 9.6 mg/dL (9.0-27.0); Calcium 8.2 mg/dL (8.7-10.3); Non-African American GFR(CKD) 86.2 (60.0-200.0); Potassium 3.9 mmol/L (3.5-5.5)
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
[2022-07-09] MEDS: ASPIRIN 81 MG PO SCH (18:14)
[2022-07-09] MEDS: FAMOTIDINE 20 MG TAB PO SCH (20:47)
[2022-07-09] MEDS: ATORVASTATIN 10 MG TAB PO SCH (20:47)
[2022-07-10] MEDS: LEVOTHYROXINE 75 MCG TAB PO SCH (05:09)
[2022-07-10] MEDS: NICOTINE 7MG/24HR PATCH TRANSDERM SCH (08:37)
[2022-07-10] MEDS: CALCIUM CARBONATE LIQUID 500 MG/5 ML CUP PO SCH ×4 (08:37→20:17)
[2022-07-10] MEDS: diazePAM 2 MG TAB PO SCH ×4 (08:38→20:17)
[2022-07-10] MEDS: FAMOTIDINE 20 MG TAB PO SCH ×2 (08:38→20:17)
[2022-07-10] MEDS: VENLAFAXINE HCL ER 75 MG CAP PO SCH (08:38)
[2022-07-10] MEDS: THIAMINE 100 MG TAB PO SCH (08:38)
[2022-07-10] MEDS: FOLIC ACID 1 MG TAB PO SCH (08:38)
[2022-07-10] MEDS: ASPIRIN 81 MG PO SCH (08:38)
[2022-07-10] MEDS: MULTIVITAMINS, THERA 1 EACH TAB PO SCH (08:38)
[2022-07-10] MEDS: METOPROLOL SUCCINATE (ER) 25 MG TAB.ER.24H PO SCH ×2 (08:41→20:17)
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
[2022-07-10] MEDS: ATORVASTATIN 10 MG TAB PO SCH (20:17)
[2022-07-11] MEDS: LEVOTHYROXINE 75 MCG TAB PO SCH (05:11)
[2022-07-11 06:58] VITALS: BP 126/68; PULSE 71; RESP 14; TEMP 98.5
[2022-07-11] MEDS: CALCIUM CARBONATE LIQUID 500 MG/5 ML CUP PO SCH (08:08)
[2022-07-11] MEDS: METOPROLOL SUCCINATE (ER) 25 MG TAB.ER.24H PO SCH (08:08)
[2022-07-11] MEDS: THIAMINE 100 MG TAB PO SCH (08:08)
[2022-07-11] MEDS: VENLAFAXINE HCL ER 75 MG CAP PO SCH (08:08)
[2022-07-11] MEDS: MULTIVITAMINS, THERA 1 EACH TAB PO SCH (08:08)
[2022-07-11] MEDS: ASPIRIN 81 MG PO SCH (08:09)
[2022-07-11] MEDS: NICOTINE 7MG/24HR PATCH TRANSDERM SCH (08:09)
[2022-07-11] MEDS: FAMOTIDINE 20 MG TAB PO SCH (08:09)
[2022-07-11] MEDS: FOLIC ACID 1 MG TAB PO SCH (08:09)
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
== END 2022-07-11 10:30 | disposition home or self-care (01) | DRG 896 ==
LOC: EC 19:11 → 5NMEDONC 07-08 01:37
PROVIDERS: ADMIT Hospitalist; ATTEND Hospitalist
DX: F10.229 Alcohol dependence with intoxication, unspecified (principal); K85.90 Acute pancreatitis without necrosis or infection, unspecified; F10.231 Alcohol dependence with withdrawal delirium; E03.9 Hypothyroidism, unspecified; K29.00 Acute gastritis without bleeding; K21.9 Gastro-esophageal reflux disease without esophagitis; E86.0 Dehydration; Z28.310 Unvaccinated for COVID-19; Y90.8 Blood alcohol level of 240 mg/100 ml or more; F32.A Depression, unspecified; F41.1 Generalized anxiety disorder; I10 Essential (primary) hypertension; E05.90 Thyrotoxicosis, unspecified without thyrotoxic crisis or storm; I25.10 Atherosclerotic heart disease of native coronary artery without angina pectoris; I25.2 Old myocardial infarction; E66.9 Obesity, unspecified; Z68.29 Body mass index [BMI] 29.0-29.9, adult; F17.290 Nicotine dependence, other tobacco product, uncomplicated; Z71.6 Tobacco abuse counseling; Z79.890 Hormone replacement therapy; Z79.899 Other long term (current) drug therapy; Z86.73 Personal history of transient ischemic attack (TIA), and cerebral infarction without residual deficits; Z88.8 Allergy status to other drugs, medicaments and biological substances
CPT/HCPCS: 36415; 80048; 80053; 80320; 83690; 83735; 84100; 84439; 84443; 85025; 96361; 96374; 96375; 99285

== ENCOUNTER 2022-09-14 13:57 | Inpatient (IN) | payer OTHER ==
[2022-09-14] MEDS ORDERED: SODIUM CHLORIDE 0.9% 1,000 ML IV STA (14:11)
[2022-09-14] MEDS ORDERED: LORazepam 2 MG/ML INJ IV PRN ×2 (14:12)
[2022-09-14] MEDS ORDERED: THIAMINE 100 MG/ML 2 ML VIAL IM STA (14:12)
[2022-09-14 15:36] LABS: Basophils # (A) 0.1 k/uL (0-0.2); Basophils % (A) 1 %; Eosinophils # (A) 0.1 k/uL (0-0.7); Eosinophils % (A) 1 %; HCT 49.4 % (39.0-53.0); HGB 17.1 gm/dL (13.0-17.5); Lymphocytes # (A) 3.1 k/uL (1.0-4.8); Lymphocytes % (A) 25 %; MCH 33.5 pg (25.0-35.0); MCHC 34.5 g/dL (31.0-37.0); Mean Platelet Volume 7.4; Monocytes # (A) 0.6 k/uL (0-1.0); Monocytes % (A) 5 %; Neutrophils # (A) 8.3 k/uL (1.3-7.7); Neutrophils % (A) 67 %; Platelet Count 315 k/uL (150-450); RDW 13.8 % (11.5-15.5); WBC 12.4 k/uL (3.8-10.6)
[2022-09-14 15:51] LABS: INR 0.9 (<1.2)
[2022-09-14 15:52] LABS: ALT 18 U/L (4-49); AST 37 U/L (17-59); African American GFR (CKD) >90 (>60 ml/min/1.73 sqM); Albumin 4.3 g/dL (3.5-5.0); Alkaline Phosphatase 95 U/L (38-126); Amylase 85 U/L (30-110); Anion Gap 14 mmol/L; Blood Urea Nitrogen 12 mg/dL (9-20); Calcium 8.3 mg/dL (8.4-10.2); Carbon Dioxide 23 mmol/L (22-30); Chloride 106 mmol/L (98-107); Glucose 110 mg/dL (74-99); Lipase 740 U/L (23-300); Non-African American GFR(CKD) 83 (>60 ml/min/1.73 sqM); Phosphorus 3.5 mg/dL (2.5-4.5); Sodium 143 mmol/L (137-145); Total Bilirubin 0.5 mg/dL (0.2-1.3); Total Protein 7.2 g/dL (6.3-8.2)
[2022-09-14 16:02] LABS: Alcohol 474 mg/dL
--- NOTE | 2022-09-14 16:17 | ED ---
Alcohol HPI - General Chief Complaint: Alcohol Stated Complaint: ETOH Time Seen by Provider: 09/14/22 14:01 Source: EMS, RN notes reviewed Mode of arrival: EMS Limitations: no limitations - History of Present Illness Initial Comments: This is a 51-year-old male who presents to the emergency department for alcohol intoxication. Patient was checking out of the local [employer], and was found to be incredibly intoxicated. He was staying there because he had been recently evicted. Additional history is not clear at this time, as the patient is not answering questions due to his intoxicated state. The chartered wealth manager of the Hotel subsequently called EMS because he was so intoxicated that he was unable to stand. On evaluation, the patient is not answering any questions and essentially just stares at the individual speaking to him. The patient's nurse did call his sister, who said that she is visiting their father in the hospital, and is unable to come get him. He has been here several times in the past for alcohol intoxication. MD Complaint: alcohol intoxication Previous Visits for Alcohol Intoxication?: Yes Recent Trauma: No - Related Data Home Medications Medication Instructions Recorded Confirmed Albuterol Sulfate [Proair Hfa] 1 - 2 puff INHALATION RT-Q6H PRN 07/08/22 07/08/22 Levothyroxine Sodium [Synthroid] 137 mcg PO DAILY 07/08/22 07/08/22 Nitroglycerin Sl Tabs [Nitrostat] 0.4 mg SUBLINGUAL Q5M PRN 07/08/22 07/08/22 Simvastatin [Zocor] 20 mg PO HS 07/08/22 07/08/22 Venlafaxine HCl [Effexor XR] 75 mg PO DAILY 07/08/22 07/08/22 clonazePAM 1 mg PO BID 07/08/22 07/08/22 traZODone HCL [Desyrel] 50 mg PO HS 07/08/22 07/08/22 Previous Rx's Medication Instructions Recorded Aspirin 81 mg PO DAILY tab 07/11/22 Famotidine [Pepcid] 20 mg PO BID #60 tab 07/11/22 Metoprolol Succinate (ER) [Toprol 25 mg PO DAILY #1 07/11/22 XL] Nicotine 7Mg/24Hr Patch [Habitrol] 1 patch TRANSDERM DAILY #30 patch 07/11/22 amLODIPine [Norvasc] 2.5 mg PO HS #0 07/11/22 Allergies Allergy/AdvReac Type Severity Reaction Status Date / Time promethazine HCl Allergy Unknown Verified 07/08/22 08:07 [From Phenergan] Childhood Review of Systems ROS Statement: Those systems with pertinent positive or pertinent negative responses have been documented in the HPI. ROS Other: All systems not noted in ROS Statement are negative. Past Medical History Past Medical History: Myocardial Infarction ([place]), Thyroid Disorder Last Myocardial Infarction Date:: 01/12/22 History of Any Multi-Drug Resistant Organisms: None Reported Past Surgical History: No Surgical Hx Reported Past Anesthesia/Blood Transfusion Reactions: No Reported Reaction Past Psychological History: Anxiety Smoking Status: Current every day smoker Past Alcohol Use History: None Reported Past Drug Use History: None Reported General Exam Limitations: no limitations General appearance: alert, appears intoxicated Head exam: Present: atraumatic, normocephalic, normal inspection Respiratory exam: Present: normal lung sounds bilaterally. Absent: respiratory distress, wheezes, rales, rhonchi, stridor Cardiovascular Exam: Present: regular rate, normal rhythm, normal heart sounds. Absent: systolic murmur, diastolic murmur, rubs, gallop, clicks Neurological exam: Present: alert Skin exam: Present: warm, dry, intact, normal color. Absent: rash Course Vital Signs 09/14/22 14:07 Temperature 98.5 F Pulse Rate 110 H Respiratory 18 Rate Blood Pressure 129/68 O2 Sat by Pulse 94 L Oximetry Medical Decision Making - Medical Decision Making This is a 51-year-old male who presents to the emergency department for alcohol intoxication. Patient was started on the CIWA protocol and given a liter bolus of IV fluids. Serum alcohol level is 474. He is still for the most part not answering any questions. He did tell me that he was tired, and is otherwise not speaking. It is still unclear how much the patient had to drink. Patient will be admitted to medicine for alcohol intoxication. This case was discussed in detail with the attending ED physician. Presentation, findings, and treatment plan discussed in detail as well. - Lab Data Result diagrams: 09/14/22 15:18 09/14/22 15:18 Lab Results 09/14/22 09/14/22 09/14/22 Range/Units 15:18 15:18 15:18 WBC 12.4 H (3.8-10.6) k/uL RBC 5.10 (4.30-5.90) m/uL Hgb 17.1 (13.0-17.5) gm/dL Hct 49.4 (39.0-53.0) % MCV 97.0 (80.0-100.0) fL MCH 33.5 (25.0-35.0) pg MCHC 34.5 (31.0-37.0) g/dL RDW 13.8 (11.5-15.5) % Plt Count 315 (150-450) k/uL MPV 7.4 Neutrophils % 67 % Lymphocytes % 25 % Monocytes % 5 % Eosinophils % 1 % Basophils % 1 % Neutrophils # 8.3 H (1.3-7.7) k/uL Lymphocytes # 3.1 (1.0-4.8) k/uL Monocytes # 0.6 (0-1.0) k/uL Eosinophils # 0.1 (0-0.7) k/uL Basophils # 0.1 (0-0.2) k/uL PT 10.0 (9.0-12.0) sec INR 0.9 (<1.2) Sodium 143 (137-145) mmol/L Potassium 4.0 (3.5-5.1) mmol/L Chloride 106 (98-107) mmol/L Carbon Dioxide 23 (22-30) mmol/L Anion Gap 14 mmol/L BUN 12 (9-20) mg/dL Creatinine 1.04 (0.66-1.25) mg/dL Est GFR (CKD-EPI)AfAm >90 (>60 ml/min/1.73 sqM) Est GFR (CKD-EPI)NonAf 83 (>60 ml/min/1.73 sqM) Glucose 110 H (74-99) mg/dL Calcium 8.3 L (8.4-10.2) mg/dL Phosphorus 3.5 (2.5-4.5) mg/dL Magnesium 2.0 (1.6-2.3) mg/dL Total Bilirubin 0.5 (0.2-1.3) mg/dL AST 37 (17-59) U/L ALT 18 (4-49) U/L Alkaline Phosphatase 95 (38-126) U/L Total Protein 7.2 (6.3-8.2) g/dL Albumin 4.3 (3.5-5.0) g/dL Amylase 85 (30-110) U/L Lipase 740 H (23-300) U/L Serum Alcohol 474 H* mg/dL Disposition Clinical Impression: Alcohol intoxication Disposition: ADMITTED IP TO THIS HOSP Referrals: Murray Olivares MD [Primary Care Provider] - 1-2 days
[2022-09-14] MEDS: LORazepam 2 MG/ML INJ IV PRN ×2 (17:14→18:01)
[2022-09-14] MEDS ORDERED: KETOROLAC 15 MG/ML 1 ML VIAL IVP PRN (17:28)
[2022-09-14] MEDS ORDERED: ACETAMINOPHEN TAB 325 MG TAB PO PRN (17:28)
[2022-09-14] MEDS ORDERED: ONDANSETRON 4 MG/2 ML VIAL IVP PRN (17:28)
[2022-09-14] MEDS ORDERED: IBUPROFEN 400 MG TAB PO PRN (17:28)
[2022-09-14] MEDS ORDERED: NALOXONE 0.4 MG/ML 1 ML VIAL IV PRN (17:28)
[2022-09-14 19:11] LABS: Amphetamine Screen,Urine Not Detected (NotDetected); Barbiturate Screen,Urine Not Detected (NotDetected); Benzodiazepines Screen,Urine Not Detected (NotDetected); Cocaine Screen,Urine Not Detected (NotDetected); Methadone Screen, Urine Not Detected (NotDetected); Opiate Screen,Urine Not Detected (NotDetected); Phencyclidine Screen,Urine Not Detected (NotDetected); Tricyclic Antidepressant,Urine Not Detected (NotDetected); Urn Cannabinoid Scrn Not Detected (NotDetected)
[2022-09-14 19:12] LABS: Oxycodone Screen, Urine Not Detected (NotDetected)
[2022-09-14 19:14] LABS: Amorphous Sediment,Urine Rare /hpf; Appearance,Urine Clear (Clear); Bilirubin,Urine Negative (Negative); Blood,Urine Small (Negative); Color,Urine Light Yellow; Glucose,Urine (UA) Negative (Negative); Hyaline Casts,Urine 10 /lpf (0-2); Ketones,Urine Negative (Negative); Leukocyte Esterase,Urine Negative (Negative); Mucus,Urine Rare /hpf; Nitrite,Urine Negative (Negative); PH, Urine 5.5 (5.0-8.0); Protein,Urine 1+ (Negative); Specific Gravity,Urine 1.011 (1.001-1.035); Squamous Epithelial Cell,Urine <1 /hpf (0-4); Urobilinogen,Urine <2.0 mg/dL (<2.0); WBC,Urine 1 /hpf (0-5)
[2022-09-14] MEDS ORDERED: ALBUTEROL NEBULIZED 2.5 MG/3 ML INHALATION PRN (20:51)
[2022-09-14] MEDS ORDERED: ATORVASTATIN 10 MG TAB PO SCH (21:00)
[2022-09-14] MEDS ORDERED: traZODone HCL 50 MG TAB PO SCH (21:00)
[2022-09-14] MEDS: SODIUM CHLORIDE 0.9% 1,000 ML IV SCH (21:07)
[2022-09-15 04:36] VITALS: RESP 18
[2022-09-15] MEDS ORDERED: LEVOTHYROXINE 137 MCG TAB PO SCH (06:30)
[2022-09-15] MEDS ORDERED: LORATADINE 10 MG TAB PO SCH (09:00)
[2022-09-15] MEDS ORDERED: ASPIRIN 81 MG PO SCH (09:00)
[2022-09-15] MEDS ORDERED: VENLAFAXINE HCL ER 75 MG CAP PO SCH (09:00)
[2022-09-15] MEDS ORDERED: PANTOPRAZOLE 40 MG/10 ML VIAL IV SCH (09:00)
[2022-09-15] MEDS ORDERED: METOPROLOL SUCCINATE (ER) 25 MG TAB.ER.24H PO SCH (09:00)
[2022-09-15] MEDS ORDERED: THIAMINE 100 MG TAB PO SCH (09:00)
[2022-09-15 09:26] LABS: Lipase 40 U/L (14-60)
[2022-09-15] MEDS ORDERED: ONDANSETRON 4 MG/2 ML VIAL IVP PRN (10:44)
[2022-09-15 11:29] VITALS: BP 148/82; PULSE 90; TEMP 98.5
[2022-09-15] MEDS: SODIUM CHLORIDE 0.9% 1,000 ML IV SCH (13:18)
--- NOTE | 2022-09-15 15:47 | P.HPIM ---
History of Present Illness H&P Date: 09/15/22 This is a 51-year-old male who was presented to the emergency department via EMS. Apparently patient was checking out of a hotel and severely intoxicated and the gas meter installer of the hotel called EMS as he was unable to stand. Patient wasn't sure how he got here initially and EtOH level was found to be significantly elevated at 474 and all other drug screening was negative. Urinalysis was negative and other labs that were reviewed were negative. Patient did have a mildly elevated WBC of 12.4 with no fever and denies any chest pain or shortness of breath. Patient reports he has been excessively drinking over this last week and not really sure why. Patient also reports some increased stress as his father recently had a stroke. Patient per ER physician reports he was here several times in the past for alcohol intoxication. Patient follows with Dr. Olivares in the outpatient setting for a past medical history of thyroid disorder and myocardial infarction. Patient does report anxiety but denies any suicidal ideation or thoughts of wanting to harm himself. Patient reports he feels somewhat depressed at times and does take medication for this. Patient continues to use tobacco and denies any other illicit drug use. Patient was admitted for alcohol intoxication and placed on CIWA protocol. Review Of Systems: Constitutional: No fever, no chills, no night sweats. No weight change. No weakness, fatigue or lethargy. No daytime sleepiness. EENT: No headache. No blurred vision or double vision, no loss of vision. No loss of Hearing, no ringing in the ears, no dizziness. No nasal drainage or congestion. No epistaxis. No sore throat. Lungs: No shortness of breath, cough, no sputum production. No wheezing. Cardiovascular: No chest pain, no lower extremity edema. No palpitations. No paroxysmal nocturnal dyspnea. No orthopnea. No lightheadedness or dizziness. No syncopal episodes. Abdominal: No abdominal pain. Reports some nausea and not much of an appetite, no vomiting. No diarrhea. No constipation. No bloody or tarry stools.. Reports mild loss of appetite. Genitourinary: No dysuria, increased frequency, urgency. No urinary retention. Musculoskeletal: No myalgias. No muscle weakness, no gait dysfunction, no frequent falls. No back pain. No neck pain. Integumentary: No wounds, no lesions. No rash or pruritus. No unusual bruising. No change in hair or nails. Neurologic: No aphasia. No facial droop. No change in mentation. No head injury. No headache. No paralysis. No paresthesia. Psychiatric: Reports depression and anxiety. No mood swings. Endocrine: No abnormal blood sugars. No weight change. No excessive sweating or thirst. No cold intolerance. PHYSICAL EXAMINATION: GENERAL: The patient is alert and oriented x4, Well developed, well nourished. HEENT: Pupils are round and equally reacting to light. EOMI. no scleral icterus. No conjunctival pallor. Normocephalic, atraumatic. No pharyngeal erythema. No thyromegaly. CARDIOVASCULAR: S1 and S2 muffled PULMONARY: diminished breath sounds bilaterally with no wheezing or rhonchi noted. ABDOMEN: soft. Nontender on exam. non-distended, normoactive bowel sounds. No palpable organomegaly. MUSCULOSKELETAL: No joint swelling or deformity. EXTREMITIES: No cyanosis, clubbing, or pedal edema. NEUROLOGICAL: Gross neurological examination did not reveal any focal deficits. SKIN: No rashes. Assessment: Acute alcohol intoxication with acute alcohol withdrawal Binge drinking over the last week Mild leukocytosis, most likely reactive with no fever or infection History of hypothyroidism History of depression Continued ongoing nicotine dependence History of myocardial infarction GI prophylaxis DVT prophylaxis Full code Plan: Recommend to continue with current medications and management with CI WA protocol. Patient has not required Ativan although having some decreased appetite and some nausea that is relieved with Zofran. Patient was started on a Librium taper. Patient encouraged to go to alcohol rehab and/or follow-up with [facility] to get counseling. Patient reports he does have a follow-up appointment scheduled. Patient was evaluated with a steady gait and has been up and walking to the bathroom with no difficulties independently. Patient will be given, a Librium taper on discharge and encouraged to avoid all alcohol intake. Patient to follow-up with primary care provider on discharge. Patient will be discharged this afternoon. The impression and plan of care has been dictated by Jayla Collins, nurse practitioner as directed. Dr. Lizz FERRIS I have performed a history and examination and MDM of this patient, discussed the same with the dictator, and agree with the dictator's assessment and plan as written ,documented as a scribe. Based on total visit time, I have performed more than 50% of the visit. Any additional findings or plans will be noted. Past Medical History Past Medical History: Myocardial Infarction ([place]), Thyroid Disorder Additional Past Medical History / Comment(s): ETOH Last Myocardial Infarction Date:: 01/12/22 History of Any Multi-Drug Resistant Organisms: None Reported Past Surgical History: No Surgical Hx Reported Past Anesthesia/Blood Transfusion Reactions: No Reported Reaction Past Psychological History: Anxiety Smoking Status: Current every day smoker Past Alcohol Use History: None Reported Past Drug Use History: None Reported Medications and Allergies Home Medications Medication Instructions Recorded Confirmed Type Albuterol Sulfate [Proair Hfa] 1 - 2 puff INHALATION RT-Q6H PRN 07/08/22 09/14/22 History Levothyroxine Sodium [Synthroid] 137 mcg PO DAILY 07/08/22 09/14/22 History Nitroglycerin Sl Tabs [Nitrostat] 0.4 mg SUBLINGUAL Q5M PRN 07/08/22 09/14/22 History Simvastatin [Zocor] 20 mg PO HS 07/08/22 09/14/22 History Venlafaxine HCl [Effexor XR] 75 mg PO DAILY 07/08/22 09/14/22 History clonazePAM 1 mg PO BID 07/08/22 09/14/22 History traZODone HCL [Desyrel] 50 mg PO HS 07/08/22 09/14/22 History Aspirin 81 mg PO DAILY tab 07/11/22 09/14/22 Rx Metoprolol Succinate (ER) [Toprol 25 mg PO DAILY #1 07/11/22 09/14/22 Rx XL] Cetirizine HCl 10 mg PO DAILY 09/14/22 09/14/22 History Ibuprofen [Motrin] 600 mg PO Q8HR PRN 09/14/22 09/14/22 History amLODIPine [Norvasc] 5 mg PO DAILY 09/14/22 09/14/22 History Ondansetron Odt [Zofran Odt] 4 mg PO Q8HR PRN #20 tab 09/15/22 Rx chlordiazePOXIDE HCl [Librium] 20 mg PO TID #6 cap 09/15/22 Rx Allergies Allergy/AdvReac Type Severity Reaction Status Date / Time promethazine HCl Allergy Unknown Verified 09/14/22 17:42 [From Phenergan] Childhood Physical Exam Vitals: Vital Signs Temp Pulse Resp BP Pulse Ox 09/15/22 11:17 98.5 F 90 18 148/82 95 09/15/22 08:00 90 18 09/15/22 04:35 97.8 F 103 H 18 114/64 96 09/14/22 20:39 97.5 F L 112 H 16 125/73 95 09/14/22 20:36 98.3 F 115 H 18 119/73 93 L 09/14/22 19:40 16 Intake and Output 09/14/22 09/15/22 09/15/22 22:59 06:59 14:59 Intake Total 600 Balance 600 Intake: Oral 600 Other: Voiding Method Toilet Toilet Urinal Urinal # Voids 1 3 # Bowel Movements 2 Weight 81.647 kg Results CBC & Chem 7: 09/14/22 15:18 09/14/22 15:18 Labs: Abnormal Lab Results - Last 24 Hours (Table) 09/14/22 09/14/22 09/14/22 Range/Units 15:18 15:18 15:18 WBC 12.4 H (3.8-10.6) k/uL Neutrophils # 8.3 H (1.3-7.7) k/uL Glucose 110 H (74-99) mg/dL Calcium 8.3 L (8.4-10.2) mg/dL Lipase 740 H (23-300) U/L Urine Protein 1+ H (Negative) Urine Blood Small H (Negative) Amorphous Sediment Rare H (None) /hpf Hyaline Casts 10 H (0-2) /lpf Urine Mucus Rare H (None) /hpf Serum Alcohol 474 H* mg/dL Thrombosis Risk Factor Assmnt - Choose All That Apply Any of the Below Risk Factors Present?: Yes Each Factor Represents 1 point: Age 41-60 years Other Risk Factors: No Other congenital or acquired thrombophilia - If yes, enter type in comment: No Thrombosis Risk Factor Assessment Total Risk Factor Score: 1 Thrombosis Risk Factor Assessment Level: Low Risk Assessment and Plan Time with Patient: Greater than 30
[2022-09-16] MEDS ORDERED: PANTOPRAZOLE 40 MG TABLET PO SCH (07:30)
--- NOTE | 2022-09-17 04:41 | P.DS ---
Providers Date of admission: 09/14/22 17:28 Expected date of discharge: 09/15/22 Attending physician: Debbie Sen Primary care physician: Murray Olivares Hospital Course: Final diagnosis Acute alcohol intoxication with acute alcohol withdrawal Binge drinking over the last week Mild leukocytosis, most likely reactive with no fever or infection History of hypothyroidism History of depression Continued ongoing nicotine dependence History of myocardial infarction GI prophylaxis DVT prophylaxis Full code Discharge disposition Patient is being discharged in a stable condition with guarded prognosis to home. Patient will follow-up with Dr. Olivares in the outpatient setting upon discharge. Patient is to continue with Librium taper and also follow-up with [facility] to discuss possible alcohol rehab. Total time taken is greater than 35 minutes. Hospital course This is a 52-year-old male who was recently admitted with alcohol intoxication and was being closely monitored on CIWA protocol. Patient did not require any Ativan and was started on Librium taper. Patient having some decreased appetite and nausea and alcohol level was over 400 on admission. Patient has been up and walking independently with a steady gait and will continue antinausea medications and Librium taper on discharge. Strongly encouraged primary care follow-up to discuss possible alcohol rehab and also following up with [facility] this week. Currently no reports of chest pain, shortness of breath, or palpitations. Patient is afebrile. No reports of nausea or vomiting and patient is tolerating diet. Patient will be discharged home today. Guarded prognosis as patient is high risk for readmissions due to continued alcohol abuse. Physical exam: Gen: This is a 52-year-old male who is awake, alert and oriented 3, well- developed, well-nourished. HEENT: Head is atraumatic, normocephalic. Pupils equal, round. Sclerae is anicteric. NECK: Supple. No JVD. No lymphadenopathy. No thyromegaly. LUNGS: Clear to auscultation. No wheezes or rhonchi. No intercostal retractions. HEART: Regular rate and rhythm. No murmur. ABDOMEN: Soft. Bowel sounds are present. No masses. No tenderness. EXTREMITIES: No pedal edema. No calf tenderness. NEUROLOGICAL: Patient is awake, alert and oriented x3. Cranial nerves 2 through 12 are grossly intact. Please refer to medication reconciliation sheet for a list of medications. The impression and plan of care has been dictated by Jayla Collins, Nurse Practitioner as directed. Dr. Lizz MD I have performed a history and examination and MDM of this patient, discussed the same with the dictator, and agree with the dictator's assessment and plan as written ,documented as a scribe. Based on total visit time, I have performed more than 50% of the visit. Patient Condition at Discharge: Fair Plan - Discharge Summary Discharge Rx Participant: No New Discharge Prescriptions: New chlordiazePOXIDE HCl [Librium] 20 mg PO TID #6 cap Ondansetron Odt [Zofran Odt] 4 mg PO Q8HR PRN #20 tab PRN Reason: Nausea Continue traZODone HCL [Desyrel] 50 mg PO HS Venlafaxine HCl [Effexor XR] 75 mg PO DAILY clonazePAM 1 mg PO BID Cetirizine HCl 10 mg PO DAILY Ibuprofen [Motrin] 600 mg PO Q8HR PRN PRN Reason: Pain Or Fever > 100.5 Simvastatin [Zocor] 20 mg PO HS Nitroglycerin Sl Tabs [Nitrostat] 0.4 mg SUBLINGUAL Q5M PRN PRN Reason: Chest Pain Albuterol Sulfate [Proair Hfa] 1 - 2 puff INHALATION RT-Q6H PRN PRN Reason: Shortness Of Breath Levothyroxine Sodium [Synthroid] 137 mcg PO DAILY Aspirin 81 mg PO DAILY tab Metoprolol Succinate (ER) [Toprol XL] 25 mg PO DAILY #1 amLODIPine [Norvasc] 5 mg PO DAILY Discontinued HYDROcodone/APAP 5-325MG [Jackson 5-325] 1 tab PO Q8H PRN PRN Reason: Pain Discharge Medication List Albuterol Sulfate [Proair Hfa] 1 - 2 puff INHALATION RT-Q6H PRN 07/08/22 [History] Levothyroxine Sodium [Synthroid] 137 mcg PO DAILY 07/08/22 [History] Nitroglycerin Sl Tabs [Nitrostat] 0.4 mg SUBLINGUAL Q5M PRN 07/08/22 [History] Simvastatin [Zocor] 20 mg PO HS 07/08/22 [History] Venlafaxine HCl [Effexor XR] 75 mg PO DAILY 07/08/22 [History] clonazePAM 1 mg PO BID 07/08/22 [History] traZODone HCL [Desyrel] 50 mg PO HS 07/08/22 [History] Aspirin 81 mg PO DAILY tab 07/11/22 [Rx] Metoprolol Succinate (ER) [Toprol XL] 25 mg PO DAILY #1 07/11/22 [Rx] Cetirizine HCl 10 mg PO DAILY 09/14/22 [History] Ibuprofen [Motrin] 600 mg PO Q8HR PRN 09/14/22 [History] amLODIPine [Norvasc] 5 mg PO DAILY 09/14/22 [History] Ondansetron Odt [Zofran Odt] 4 mg PO Q8HR PRN #20 tab 09/15/22 [Rx] chlordiazePOXIDE HCl [Librium] 20 mg PO TID #6 cap 09/15/22 [Rx] Follow up Appointment(s)/Referral(s): Murray Olivares MD [Primary Care Provider] - 1-2 days (Patient needs to call doctors office and make a follow up appointment) Patient Instructions/Handouts: Chlordiazepoxide (By mouth), Ondansetron (By mouth), Abuse of Alcohol (DC) Activity/Diet/Wound Care/Special Instructions: Activity is limited until follow-up Follow-up with primary care provider on discharge Take medications as prescribed Do not drink while taking these medications Follow-up with [facility] and primary care provider about possible alcohol rehab Discharge/Stand Alone Forms: AA Meetings [facility], Who Do I Call?, Community Resources, Outpatient Counseling, Inp Substance Abuse Facilities Discharge Disposition: HOME SELF-CARE
== END 2022-09-15 16:27 | disposition home or self-care (01) | DRG 897 ==
LOC: EC 13:57 → 5NMEDONC 17:28
PROVIDERS: ADMIT Hospitalist; ATTEND Hospitalist
PROC: HZ2ZZZZ Detoxification Services for Substance Abuse Treatment (ICD-10-PCS; principal; 2022-09-15)
DX: F10.229 Alcohol dependence with intoxication, unspecified (principal); F10.239 Alcohol dependence with withdrawal, unspecified; Y90.8 Blood alcohol level of 240 mg/100 ml or more; F32.A Depression, unspecified; Z71.41 Alcohol abuse counseling and surveillance of alcoholic; Z71.6 Tobacco abuse counseling; D72.829 Elevated white blood cell count, unspecified; F17.200 Nicotine dependence, unspecified, uncomplicated; F41.9 Anxiety disorder, unspecified; I25.2 Old myocardial infarction; Z79.82 Long term (current) use of aspirin; Z79.890 Hormone replacement therapy; Z79.899 Other long term (current) drug therapy; Z88.8 Allergy status to other drugs, medicaments and biological substances
CPT/HCPCS: 36415; 80053; 80306; 80320; 81001; 82150; 83690; 83735; 84100; 84443; 85025; 85610; 96361; 96372; 96374; 96376; 99285

== ENCOUNTER 2022-10-03 16:08 | Inpatient (IN) | payer OTHER ==
[2022-10-03] MEDS ORDERED: SODIUM CHLORIDE 0.9% 1,000 ML IV ONE (16:21)
[2022-10-03] MEDS ORDERED: THIAMINE 100 MG/ML 2 ML VIAL IM STA (16:21)
--- NOTE | 2022-10-03 16:26 | ED ---
General Adult HPI - General Stated complaint: ETOH,RAYMOND Time Seen by Provider: 10/03/22 16:11 Source: patient, EMS Mode of arrival: EMS Limitations: altered mental status - History of Present Illness Initial comments: Patient is a pleasant 52-year-old male presenting to the emergency department asking for help. Patient is unclear and circumstances. Patient admits to drinking large amount of alcohol over the past few days however denies drinking any today. Patient reportedly drove himself to [facility] asked for help. Patient is unclear what is bothering him. EMS reports patient feels cold however does confirm that he drove himself there. On exam weakness is noted that patient is not familiar with. Unclear last known well. - Related Data Home Medications Medication Instructions Recorded Confirmed Albuterol Sulfate [Proair Hfa] 1 - 2 puff INHALATION RT-Q6H PRN 07/08/22 10/03/22 Levothyroxine Sodium [Synthroid] 137 mcg PO DAILY 07/08/22 10/03/22 Nitroglycerin Sl Tabs [Nitrostat] 0.4 mg SUBLINGUAL Q5M PRN 07/08/22 10/03/22 Simvastatin [Zocor] 20 mg PO HS 07/08/22 10/03/22 Venlafaxine HCl [Effexor XR] 75 mg PO DAILY 07/08/22 10/03/22 clonazePAM 1 mg PO BID PRN 07/08/22 10/03/22 traZODone HCL [Desyrel] 50 mg PO HS 07/08/22 10/03/22 Cetirizine HCl 10 mg PO DAILY 09/14/22 10/03/22 Ibuprofen [Motrin] 600 mg PO Q8HR PRN 09/14/22 10/03/22 amLODIPine [Norvasc] 5 mg PO DAILY 09/14/22 10/03/22 Previous Rx's Medication Instructions Recorded Aspirin 81 mg PO DAILY tab 07/11/22 Metoprolol Succinate (ER) [Toprol 25 mg PO DAILY #1 07/11/22 XL] Allergies Allergy/AdvReac Type Severity Reaction Status Date / Time promethazine HCl Allergy Unknown Verified 10/03/22 17:14 [From Phenergan] Childhood Review of Systems ROS Statement: Those systems with pertinent positive or pertinent negative responses have been documented in the HPI. ROS Other: All systems not noted in ROS Statement are negative. Constitutional: Denies: fever Eyes: Denies: eye pain ENT: Denies: ear pain Respiratory: Denies: cough, dyspnea Cardiovascular: Denies: chest pain Endocrine: Denies: fatigue Gastrointestinal: Denies: abdominal pain Genitourinary: Denies: dysuria Musculoskeletal: Denies: back pain Skin: Denies: rash Neurological: Reports: as per HPI Past Medical History Past Medical History: Myocardial Infarction ([place]), Thyroid Disorder Additional Past Medical History / Comment(s): ETOH Last Myocardial Infarction Date:: 01/12/22 History of Any Multi-Drug Resistant Organisms: None Reported Past Surgical History: No Surgical Hx Reported Past Anesthesia/Blood Transfusion Reactions: No Reported Reaction Past Psychological History: Anxiety Smoking Status: Current every day smoker Past Alcohol Use History: None Reported Past Drug Use History: None Reported General Exam Limitations: no limitations General appearance: alert, in no apparent distress Head exam: Present: atraumatic, normocephalic Eye exam: Present: normal appearance, PERRL, EOMI ENT exam: Present: normal oropharynx Neck exam: Present: normal inspection. Absent: tenderness, meningismus Respiratory exam: Present: normal lung sounds bilaterally Cardiovascular Exam: Present: regular rate, normal rhythm GI/Abdominal exam: Present: soft. Absent: tenderness Extremities exam: Present: other (Bilateral hands and feet are cool and mildly erythematous). Absent: calf tenderness Neurological exam: Present: alert, oriented X3 (Slightly delayed in response), CN II-XII intact. Absent: motor sensory deficit Expanded Neurological exam: Present: protecting the airway Patient oriented to: Present: person, place, time Cranial nerves: EOM's Intact: Normal Sensory exam: Upper Extremity Light Touch: Normal, Lower Extremity Light Touch: Normal Motor strength exam: RUE: 5, LUE: 4, RLE: 5, LLE: 3 Eye Response: (4) open spontaneously Motor Response: (6) obeys commands Verbal Response: (5) oriented Psychiatric exam: Present: normal affect, normal mood Skin exam: Present: other (Bilateral hands and feet cool and mildly erythematou s) Course Vital Signs 10/03/22 10/03/22 16:27 17:49 Temperature 97.6 F 98.6 F Pulse Rate 90 101 H Respiratory 18 16 Rate Blood Pressure 150/97 136/91 O2 Sat by Pulse 98 97 Oximetry EKG Findings - EKG Results: EKG: interpreted by ERMD, sinus rhythm, normal axis, normal QRS, normal ST/T EKG shows: tachycardia Medical Decision Making - Medical Decision Making Patient reevaluated and updated. Case was discussed with Dr. Thurston, who will admit covering Dr. Olivares. There is concern for possible new-onset stroke, unknown last well. A kern is not a candidate for TPA secondary to risks outweigh the benefits. Patient is out of the window for treatment. Patient also was complicated with history of alcohol use and concern for withdrawal. Was pt. sent in by a medical professional or institution (, PA, SILK WORKER, urgent care, hospital, or assisted...) When possible be specific @ -[No] Did you speak to anyone other than the patient for history (EMS, parent, family, police, friend...)? What history was obtained from this source @ -[No] Did you review nursing and triage notes (agree or disagree)? Why? @ -[I reviewed and agree with nursing and triage notes] Were old charts reviewed (outside hosp., previous admission, EMS record, old EKG, old radiological studies, urgent care reports/EKG's, assisted records)? Report findings @ -[No old charts were reviewed] Differential Diagnosis (chest pain, altered mental status, abdominal pain women, abdominal pain men, vaginal bleeding, weakness, fever, dyspnea, syncope, headache, dizziness, GI bleed, back pain, seizure, CVA, palpatations, mental health)? @ -Differential Weakness: Hypoglycemia, shock, sepsis, hyponatremia, anemia, infection, [place], ETOH, adverse medicine reaction, overdose, stroke, this is not meant to be an all-inclusive list. EKG interpreted by me (3pts min.). @ -[As above] X-rays interpreted by me (1pt min.). @ -As above CT interpreted by me (1pt min.). @ -Report reviewed U/S interpreted by me (1pt. min.). @ -[None done] What testing was considered but not performed or refused? (CT, X-rays, U/S, labs)? Why? @ -[None] What meds were considered but not given or refused? Why? @ -TPA considered however patient is not a candidate secondary to unknown last well. Did you discuss the management of the patient with other professionals (professionals i.e. DrCarrie, PA, SILK WORKER, lab, RT, psych nurse, pediatric social worker, kalsominer, teacher, port patrol officer, outpatient case manager)? Give summary @ -Case was discussed with Dr. Thurston, who will admit. Was smoking cessation discussed for >3mins.? @ -[No] Was critical care preformed (if so, how long)? @ -[No] Were there social determinants of health that impacted care today? How? (Homelessness, low income, unemployed, alcoholism, drug addiction, transportation, low edu. Level, literacy, decrease access to med. care, detention, rehab)? @ -[No] Was there de-escalation of care discussed even if they declined (Discuss DNR or withdrawal of care, Hospice)? DNR status @ -[No] What co-morbidities impacted this encounter? (DM, HTN, Smoking, COPD, CAD, Cancer, CVA, ARF, Chemo, Hep., AIDS, mental health diagnosis, sleep apnea, morbid obesity)? @ -History of alcohol use and concern for possible withdrawal Was patient admitted / discharged? Hospital course, mention meds given and route, prescriptions, significant lab abnormalities, going to OR and other pertinent info. @ -Admitted Undiagnosed new problem with uncertain prognosis? @ -Undiagnosed problem with uncertain prognosis Drug Therapy requiring intensive monitoring for toxicity (Heparin, Nitro, Insulin, Cardizem)? @ -[No] Were any procedures done? @ -[No] Diagnosis/symptom? @ -CVA, alcohol intoxication Acute, or Chronic, or Acute on Chronic? @ -Acute CVA Uncomplicated (without systemic symptoms) or Complicated (systemic symptoms)? @ -Uncomplicated Side effects of treatment? @ -[No] Exacerbation, Progression, or Severe Exacerbation? @ -[No] Poses a threat to life or bodily function? How? (Chest pain, [place], [place], pneumonia, PE, COPD, DKA, ARF, appy, cholecystitis, CVA, Diverticulitis, Homicidal, Suicidal, threat to staff... and all critical care pts) @ -CVA does pose a threat to life. Complication of alcohol intoxication and potential for withdrawal. - Lab Data Result diagrams: 10/03/22 16:52 10/03/22 16:52 Lab Results 10/03/22 10/03/22 10/03/22 Range/Units 16:22 16:52 16:52 WBC 15.0 H (3.8-10.6) k/uL RBC 5.68 (4.30-5.90) m/uL Hgb 18.9 H (13.0-17.5) gm/dL Hct 55.2 H (39.0-53.0) % MCV 97.2 (80.0-100.0) fL MCH 33.3 (25.0-35.0) pg MCHC 34.3 (31.0-37.0) g/dL RDW 14.3 (11.5-15.5) % Plt Count 618 H (150-450) k/uL MPV 7.6 Neutrophils % 70 % Lymphocytes % 22 % Monocytes % 4 % Eosinophils % 1 % Basophils % 1 % Neutrophils # 10.4 H (1.3-7.7) k/uL Lymphocytes # 3.3 (1.0-4.8) k/uL Monocytes # 0.6 (0-1.0) k/uL Eosinophils # 0.2 (0-0.7) k/uL Basophils # 0.2 (0-0.2) k/uL PT 9.8 (9.0-12.0) sec INR 0.9 (<1.2) APTT 23.7 (22.0-30.0) sec Sodium (137-145) mmol/L Potassium (3.5-5.1) mmol/L Chloride (98-107) mmol/L Carbon Dioxide (22-30) mmol/L Anion Gap mmol/L BUN (9-20) mg/dL Creatinine (0.66-1.25) mg/dL Est GFR (CKD-EPI)AfAm (>60 ml/min/1.73 sqM) Est GFR (CKD-EPI)NonAf (>60 ml/min/1.73 sqM) Glucose (74-99) mg/dL POC Glucose (mg/dL) 94 (70-110) mg/dL POC Glu Bankruptcy Law Specialist ID Dhaval Barrientos Calcium (8.4-10.2) mg/dL Magnesium (1.6-2.3) mg/dL Total Bilirubin (0.2-1.3) mg/dL AST (17-59) U/L ALT (4-49) U/L Alkaline Phosphatase (38-126) U/L Ammonia (<30) umol/L Troponin I (0.000-0.034) ng/mL Total Protein (6.3-8.2) g/dL Albumin (3.5-5.0) g/dL Serum Alcohol mg/dL 10/03/22 10/03/22 10/03/22 Range/Units 16:52 16:52 16:52 WBC (3.8-10.6) k/uL RBC (4.30-5.90) m/uL Hgb (13.0-17.5) gm/dL Hct (39.0-53.0) % MCV (80.0-100.0) fL MCH (25.0-35.0) pg MCHC (31.0-37.0) g/dL RDW (11.5-15.5) % Plt Count (150-450) k/uL MPV Neutrophils % % Lymphocytes % % Monocytes % % Eosinophils % % Basophils % % Neutrophils # (1.3-7.7) k/uL Lymphocytes # (1.0-4.8) k/uL Monocytes # (0-1.0) k/uL Eosinophils # (0-0.7) k/uL Basophils # (0-0.2) k/uL PT (9.0-12.0) sec INR (<1.2) APTT (22.0-30.0) sec Sodium 144 (137-145) mmol/L Potassium 4.4 (3.5-5.1) mmol/L Chloride 107 (98-107) mmol/L Carbon Dioxide 25 (22-30) mmol/L Anion Gap 12 mmol/L BUN 13 (9-20) mg/dL Creatinine 0.98 (0.66-1.25) mg/dL Est GFR (CKD-EPI)AfAm >90 (>60 ml/min/1.73 sqM) Est GFR (CKD-EPI)NonAf 89 (>60 ml/min/1.73 sqM) Glucose 100 H (74-99) mg/dL POC Glucose (mg/dL) (70-110) mg/dL POC Glu Bankruptcy Law Specialist ID Calcium 9.1 (8.4-10.2) mg/dL Magnesium 2.0 (1.6-2.3) mg/dL Total Bilirubin 0.3 (0.2-1.3) mg/dL AST 61 H (17-59) U/L ALT 43 (4-49) U/L Alkaline Phosphatase 117 (38-126) U/L Ammonia <9 (<30) umol/L Troponin I <0.012 (0.000-0.034) ng/mL Total Protein 8.4 H (6.3-8.2) g/dL Albumin 4.9 (3.5-5.0) g/dL Serum Alcohol 236 H* mg/dL - Radiology Data Radiology results: report reviewed (CT brain reveals no acute process) Interpreted by me: Chest x-ray shows no acute process Disposition Clinical Impression: Alcohol intoxication, CVA (cerebral vascular accident) Disposition: ADMITTED IP TO THIS HOSP Condition: Serious Is patient prescribed a controlled substance at d/c from ED?: No Referrals: Murray Olivares MD [Primary Care Provider] - 1-2 days Time of Disposition: 18:27
[2022-10-03 16:42] LABS: Glucose,Whole Blood 94 mg/dL (70-110)
[2022-10-03 17:09] LABS: Basophils # (A) 0.2 k/uL (0-0.2); Basophils % (A) 1 %; Eosinophils # (A) 0.2 k/uL (0-0.7); Eosinophils % (A) 1 %; HGB 18.9 gm/dL (13.0-17.5); Lymphocytes # (A) 3.3 k/uL (1.0-4.8); Lymphocytes % (A) 22 %; MCH 33.3 pg (25.0-35.0); MCHC 34.3 g/dL (31.0-37.0); MCV 97.2 fL (80.0-100.0); Mean Platelet Volume 7.6; Monocytes # (A) 0.6 k/uL (0-1.0); Monocytes % (A) 4 %; Neutrophils # (A) 10.4 k/uL (1.3-7.7); Neutrophils % (A) 70 %; Platelet Count 618 k/uL (150-450); RBC 5.68 m/uL (4.30-5.90); RDW 14.3 % (11.5-15.5)
[2022-10-03 17:13] LABS: HCT 55.2 % (39.0-53.0)
[2022-10-03 17:28] LABS: ALT 43 U/L (4-49); AST 61 U/L (17-59); African American GFR (CKD) >90 (>60 ml/min/1.73 sqM); Albumin 4.9 g/dL (3.5-5.0); Alkaline Phosphatase 117 U/L (38-126); Anion Gap 12 mmol/L; Blood Urea Nitrogen 13 mg/dL (9-20); Calcium 9.1 mg/dL (8.4-10.2); Carbon Dioxide 25 mmol/L (22-30); Chloride 107 mmol/L (98-107); Glucose 100 mg/dL (74-99); Non-African American GFR(CKD) 89 (>60 ml/min/1.73 sqM); Potassium 4.4 mmol/L (3.5-5.1); Sodium 144 mmol/L (137-145); Total Bilirubin 0.3 mg/dL (0.2-1.3); Total Protein 8.4 g/dL (6.3-8.2)
--- NOTE | 2022-10-03 17:42 | XR ---
EXAMINATION TYPE: XR chest 2V DATE OF EXAM: 10/03/2022 COMPARISON: 04/17/2022 HISTORY: Altered mental status TECHNIQUE: 2 views FINDINGS: Heart is normal. Lungs are clear. Diaphragm is normal. Bony thorax is intact. IMPRESSION: Normal chest. No change.
--- NOTE | 2022-10-03 17:44 | CT ---
EXAMINATION TYPE: CT brain wo con DATE OF EXAM: 10/03/2022 COMPARISON: 05/13/2015 HISTORY: ams CT DLP: 1170.4 mGycm Automated exposure control for dose reduction was used. Images obtained of the brain with no contrast. Ventricles have normal size. There is no mass effect nor midline shift. No sign of intracranial hemor rhage. The calvarium is intact. The skull base is intact. There is some mucosal thickening in the lef t side ethmoid sinus. IMPRESSION: Negative CT scan of the brain. No adverse change.
[2022-10-03 17:49] LABS: Alcohol 236 mg/dL
[2022-10-03 17:52] LABS: INR 0.9 (<1.2); Partial Thromboplastin Time 23.7 sec (22.0-30.0); Prothrombin Time 9.8 sec (9.0-12.0)
[2022-10-03] MEDS ORDERED: ASPIRIN 325 MG TAB PO STA (18:29)
[2022-10-03] MEDS ORDERED: LORazepam 0.5 MG TAB PO PRN (18:29)
[2022-10-03] MEDS ORDERED: LORazepam 1 MG TAB PO PRN ×2 (18:29)
[2022-10-03] MEDS ORDERED: LORazepam 2 MG/ML INJ IV PRN (18:29)
[2022-10-03] MEDS: SODIUM CHLORIDE 0.9% 1,000 ML IV SCH (19:26)
--- NOTE | 2022-10-03 19:39 | US ---
EXAMINATION TYPE: US carotid duplex BILAT DATE OF EXAM: 10/03/2022 COMPARISON: NONE CLINICAL HISTORY: Stenosis. stenosis TECHNIQUE: Carotid duplex ultrasound examination. Indirect Doppler criteria was utilized. FINDINGS: EXAM MEASUREMENTS: RIGHT: Peak Systolic Velocity (PSV) cm/sec ----- Right CCA: 84.6 ----- Right ICA: 75.5 ----- Right ECA: 151.6 ICA/CCA ratio: 0.9 RIGHT: End Diastole cm/sec ----- Right CCA: 20.7 ----- Right ICA: 19.4 ----- Right ECA: 21.5 LEFT: Peak Systolic Velocity (PSV) cm/sec ----- Left CCA: 99.5 ----- Left ICA: 73.6 ----- Left ECA: 137.8 ICA/CCA ratio: 0.7 LEFT: End Diastole cm/sec ----- Left CCA: 27.0 ----- Left ICA: 16.7 ----- Left ECA: 21.5 VERTEBRALS (direction of flow): Right Vertebral: Antegrade Left Vertebral: Antegrade Rhythm: Normal PROGRAM SERVICES ASSISTANT NOTES: IMPRESSION: There is antegrade flow in the vertebral arteries. The images and measurement suggests less than 10% stenosis in both internal carotid arteries. Criteria for Assigning % of Stenosis / Diameter reduction (Estimation based on the indirect measurements of the internal carotid artery velocities (ICA PSV). 1. Normal (no stenosis)=ICA PSV < 125 cm/s: ratio < 2.0: ICA EDV<40 cm/s. 2. Less than 50% stenosis=ICA PSV < 125 cm/s: ratio < 2.0: ICA EDV<40 cm/s. 3. 50 to 69% stenosis=ICA PSV of 125 to 230 cm/s: ration 2.0 ? 4.0: ICA EDV 40-100 cm/s. 4. Greater than 70% stenosis to near occlusion= ICA PSV > 230 cm/s: ratio > 4.0: ICA EDV > 100 cm/s. 5. Near occlusion= ICA PSV velocities may be low or undetectable: variable ratio and ICA EDV. 6. Total occlusion=unable to detect flow.
[2022-10-03 21:55] LABS: Amphetamine Screen,Urine Not Detected (NotDetected); Barbiturate Screen,Urine Not Detected (NotDetected); Benzodiazepines Screen,Urine Detected (NotDetected); Cocaine Screen,Urine Not Detected (NotDetected); Methadone Screen, Urine Not Detected (NotDetected); Opiate Screen,Urine Not Detected (NotDetected); Oxycodone Screen, Urine Not Detected (NotDetected); Phencyclidine Screen,Urine Not Detected (NotDetected); Tricyclic Antidepressant,Urine Not Detected (NotDetected); Urn Cannabinoid Scrn Not Detected (NotDetected)
[2022-10-04] MEDS: SODIUM CHLORIDE 0.9% 1,000 ML IV SCH ×2 (03:40→15:42)
[2022-10-04] MEDS: THIAMINE 100 MG TAB PO SCH (08:18)
[2022-10-04] MEDS ORDERED: ASPIRIN 325 MG TAB PO SCH (09:00)
[2022-10-04] MEDS ORDERED: NITROGLYCERIN SL TABS 0.4 MG TAB SUBLINGUAL PRN (11:21)
[2022-10-04] MEDS ORDERED: clonazePAM 1 MG TAB PO PRN (11:21)
--- NOTE | 2022-10-04 11:25 | P.CNNES ---
History of Present Illness Consult date: 10/04/22 Requesting physician: Valente Gonzalez Reason for Consult: cva History of Present Illness: This is a 52-year-old gentleman history of myocardial infarction, hypothyroidism, ongoing the alcohol use who presented emergency department because of chest pain. Neurology is consulted for stroke. It seems that the ED is concerned about a stroke at an unknown last normal state. According to the patient he's been having diplopia of both eyes and he stated that it's been going on for last 1 month and he is the right foot he feels its off an unknown when it started but he cannot tell me if it's numb but only he stated is at its off. He feels diplopia is one object over another. His episode can last a few minutes and happen multiple times a day. He is in the process of seeking neurologist as an outpatient regarding that. He notified me that he was told he had the TIAs in the past and unsure of symptoms. He is on aspirin 81 mg daily. He denies of any lower back pain. Denies of any difficulty getting his words out swallowing. He does drink significant alcohol use. She denies of history of diabetes. He does smoke tobacco. Some other workup during this hospital visit consisted of: Personal review the CBC at and that the chemistry panel Ammonia level less than 9 Serum alcohol was 236 and the urine drug seen is positive for benzos CT of the head is reported as negative CT scan. No adverse changes. Duplex is reported as there is antegrade flow in the vertebral arteries. Images and measurements suggest less than 10% stenosis in both internal carotid arteries. Past Medical History Past Medical History: Myocardial Infarction ([place]), Thyroid Disorder Additional Past Medical History / Comment(s): ETOH Last Myocardial Infarction Date:: 01/12/22 History of Any Multi-Drug Resistant Organisms: None Reported Past Surgical History: No Surgical Hx Reported Past Anesthesia/Blood Transfusion Reactions: No Reported Reaction Past Psychological History: Anxiety Smoking Status: Current every day smoker Past Alcohol Use History: None Reported Past Drug Use History: None Reported Medications and Allergies Home Medications Medication Instructions Recorded Confirmed Type Albuterol Sulfate [Proair Hfa] 1 - 2 puff INHALATION RT-Q6H PRN 07/08/22 10/03/22 History Levothyroxine Sodium [Synthroid] 137 mcg PO DAILY 07/08/22 10/03/22 History Nitroglycerin Sl Tabs [Nitrostat] 0.4 mg SUBLINGUAL Q5M PRN 07/08/22 10/03/22 History Simvastatin [Zocor] 20 mg PO HS 07/08/22 10/03/22 History Venlafaxine HCl [Effexor XR] 75 mg PO DAILY 07/08/22 10/03/22 History clonazePAM 1 mg PO BID PRN 07/08/22 10/03/22 History traZODone HCL [Desyrel] 50 mg PO HS 07/08/22 10/03/22 History Aspirin 81 mg PO DAILY tab 07/11/22 10/03/22 Rx Metoprolol Succinate (ER) [Toprol 25 mg PO DAILY #1 07/11/22 10/03/22 Rx XL] Cetirizine HCl 10 mg PO DAILY 09/14/22 10/03/22 History Ibuprofen [Motrin] 600 mg PO Q8HR PRN 09/14/22 10/03/22 History amLODIPine [Norvasc] 5 mg PO DAILY 09/14/22 10/03/22 History Allergies Allergy/AdvReac Type Severity Reaction Status Date / Time promethazine HCl Allergy Unknown Verified 10/03/22 17:14 [From Phenergan] Childhood Physical Examination - Vital Signs Vital Signs: Vital Signs Temp Pulse Pulse Resp BP BP Pulse Ox 10/04/22 09:27 97.8 F 106 H 16 139/59 99 10/04/22 06:30 98.6 F 105 H 16 129/90 95 10/04/22 05:00 101 H 18 129/90 96 10/04/22 04:00 104 H 16 129/90 95 10/04/22 02:50 104 H 16 97 10/04/22 02:30 107 H 16 129/90 94 L 10/04/22 02:01 104 H 16 129/90 97 10/03/22 23:29 98 16 129/90 99 10/03/22 19:30 98.6 F 98 16 134/98 99 10/03/22 17:49 98.6 F 101 H 16 136/91 97 10/03/22 16:27 97.6 F 90 18 150/97 98 Intake and Output 10/03/22 10/04/22 10/04/22 22:59 06:59 14:59 Other: Weight 170 kg GENERAL: The patient is lying in bed and is not in acute distress. CHEST: The heart rate is regular rate rhythm. No murmurs to auscultation. LUNG: Clear to auscultation bilaterally no wheezing noted throughout. Not labored breathing. ABDOMEN/GI: Bowel sounds present in all 4 quadrants. No tenderness to palpation throughout. NEUROLOGICAL: Higher mental function: The patient is awake, alert, oriented to self, place and time. Patient is following commands. No aphasia and no neglect. Cranial nerves: The pupils are round, equal and reactive to light and accommodation. Visual montes are full to confrontation throughout. Extraocular movement is intact no nystagmus is noted. Facial sensation is normal to touch throughout. The facial strength is normal throughout. Hearing is normal bilaterally to hand rub. Tongue is midline and moved [id number] without any difficulty. No dysarthria is noted. Shoulder shrug is normal bilaterally. Motor: Unable to assess gait because of weakness. The strength is right ankle dorsiflexion is 3. Otherwise 5 over 5 throughout. Normal tone and bulk. Cerebellum: Normal finger to nosebilaterally. Sensation: Sensation is normal to touch throughout. Reflexes (right/left): 2+ throughout except right ankle is 1+. Plantars are mute bilaterally. Results - Laboratory Findings CBC and BMP: 10/03/22 16:52 10/03/22 16:52 Abnormal Lab Findings: Abnormal Labs 10/03/22 10/03/22 10/03/22 16:52 16:52 20:52 WBC 15.0 H Hgb 18.9 H Hct 55.2 H Plt Count 618 H Neutrophils # 10.4 H Glucose 100 H AST 61 H Total Protein 8.4 H U Benzodiazepines Scrn Detected H Serum Alcohol 236 H* Assessment and Plan Assessment: Diplopia of both eyes for the past 1 month and appears right foot drop bundle in duration. Rule out subacute ischemic stroke. Possible peripheral neuropathy of right lower extremity. Heavy alcohol use with alcohol intoxication during this hospital visit and the alcohol is 236 History of TIA Tobacco use Plan: I ordered MRI of the brain with and without. If that does not explain the right foot drop recommend MRI of the lower back and patient denies of any lower back pain. Consider EMG with NCS of lowers to rule out peripheral focal neuropathy as result of weakness of right foot. ordered CTA head to rule out any intracranial stenosis or aneurysm. Ordered TSH, vitamin B12, folate. I also ordered hemoglobin A1c Continue aspirin 325 daily (at home was on 81mg daily). Recommend Lipitor 20mg daily if no liver cirrhosis or issues for secondary stroke prophylaxis. 2Decho, lipid panel are ordered and pending Continue neuro checks On cardiac monitoring PT OT and POPULATION GENETICIST are consulted Continue thiamine Heidemann grams daily Is on CIWA protocol Patient was counseled on tobacco cessation and alcohol cessation We'll defer the rest of the medical management to the primary team For DVT prophylaxis I started the patient on subcu heparin 5000 it's every 8 hours. Recommend patient to follow-up with neurologist as outpatient within 1-2 weeks. Plan is discussed with patient and primary team. Thank for the consultation Time with Patient: Greater than 30
[2022-10-04 11:41] LABS: Chol/HDL Ratio 3.14 Ratio; LDL Cholesterol,Calculated 125.5 mg/dL (0.0-131.0)
--- NOTE | 2022-10-04 12:33 | CT ---
EXAMINATION TYPE: CT angio head DATE OF EXAM: 10/04/2022 12:12 PM COMPARISON: MRI brain 2018. HISTORY: Diplopia CT DLP: 254.4 mGycm Automated exposure control for dose reduction was used. TECHNIQUE: Performed with IV Contrast, patient injected with 100 mL of Isovue 370. 3D reconstructed images are created on an independent workstation and reviewed.. FINDINGS: Slightly larger or dominant left vertebral artery is redemonstrated. There is no significant focal st enosis or aneurysm in the posterior circulation. There are hypoplastic bilateral posterior communicat ing arteries redemonstrated. Images of the anterior circulation shows small caliber right A1 segment with patent anterior communic ating artery helping to fill the A2 segment. No significant focal stenosis or aneurysm in the anterio r circulation is seen. Visualized brain parenchyma unremarkable. Suprasellar cistern maintained. Globes appear intact bilate rally. Incidental mucosal thickening and partial opacification of the left ethmoid sinuses with mucos al thickening also seen in the frontal and maxillary sinuses bilaterally. IMPRESSION: No aneurysm at the level of the cahto of [place].
[2022-10-04] MEDS: METOPROLOL SUCCINATE (ER) 25 MG TAB.ER.24H PO SCH (12:34)
[2022-10-04] MEDS: amLODIPine 5 MG TAB PO SCH (12:34)
[2022-10-04] MEDS: VENLAFAXINE HCL ER 75 MG CAP PO SCH (12:35)
[2022-10-04] MEDS ORDERED: LACTULOSE 20 GM/30 ML CUP PO PRN (12:38)
[2022-10-04] MEDS ORDERED: ACETAMINOPHEN TAB 325 MG TAB PO PRN (12:38)
[2022-10-04] MEDS ORDERED: CALCIUM CARBONATE 500 MG CHEWABLE PO PRN (12:38)
[2022-10-04] MEDS ORDERED: NALOXONE 0.4 MG/ML 1 ML VIAL IV PRN (12:38)
[2022-10-04] MEDS ORDERED: ONDANSETRON 4 MG/2 ML VIAL IVP PRN (12:38)
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
[2022-10-04] MEDS: LEVOTHYROXINE 137 MCG TAB PO SCH (15:41)
[2022-10-04] MEDS: diazePAM 2 MG TAB PO SCH ×3 (15:41→20:56)
[2022-10-04] MEDS: FAMOTIDINE 20 MG TAB PO SCH ×2 (15:41→19:46)
[2022-10-04] MEDS: LORATADINE 10 MG TAB PO SCH ×2 (15:42→19:46)
[2022-10-04] MEDS: HEPARIN SODIUM,PORCINE/PF 5,000 UNIT/0.5 ML SYRINGE SQ SCH ×2 (15:42→23:28)
[2022-10-04] MEDS: DEXTROSE 5%-0.45% NACL 1,000 ML IV SCH (15:43)
[2022-10-04] MEDS: IPRATROPIUM-ALBUTEROL 3 ML NEB INHALATION SCH ×4 (16:36→23:15)
[2022-10-04] MEDS: BUDESONIDE 1 MG/2 ML NEBU INHALATION SCH ×2 (16:37→19:58)
--- NOTE | 2022-10-04 19:00 | CA ---
Transthoracic Echo Report Name: Zeke Frances Age: 52 Gender: M : 1970 Exam Date: 10/04/2022 12:14 Exam Location: [facility] Ht (in): 66 Wt (lb): 180 Ordering Physician: Valente Gonzalez DO Attending/Referring Phys: Fruit Tester Shante Siu RDCS Procedure CPT: Indications: Thrombus Cardiac Hx: Technical Quality: Fair Contrast 1: Total Dose (mL): Contrast 2: Total Dose (mL): MEASUREMENTS (Male / Female) Normal Values 2D ECHO LV Diastolic Diameter PLAX 3.4 cm 4.2 - 5.9 / 3.9 - 5.3 cm LV Systolic Diameter PLAX 2.5 cm IVS Diastolic Thickness 1.2 cm 0.6 - 1.0 / 0.6 - 0.9 cm LVPW Diastolic Thickness 1.0 cm 0.6 - 1.0 / 0.6 - 0.9 cm LV Relative Wall Thickness 0.7 RV Internal Dim ED PLAX 3.1 cm LA Volume 25.2 cm??? 18 - 58 / 22 - 52 cm??? M-MODE Aortic Root Diameter MM 2.5 cm LA Systolic Diameter MM 3.9 cm LA Ao Ratio MM 1.6 AV Cusp Separation MM 2.0 cm DOPPLER AV Peak Velocity 184.4 cm/s AV Peak Gradient 13.6 mmHg AI Peak Velocity 522.8 cm/s AI Peak Gradient 109.3 mmHg AI Pressure Half Time 449.6 ms LVOT Peak Velocity 121.6 cm/s LVOT Peak Gradient 5.9 mmHg MV Area PHT 5.1 cm??? Mitral E Point Velocity 103.5 cm/s Mitral A Point Velocity 110.3 cm/s Mitral E to A Ratio 0.9 MV Deceleration Time 149.0 ms FINDINGS Left Ventricle Mildly increased left ventricular wall thickness. Normal left ventricular systolic function with no obvious regional wall motion abnormalities. Left ventricular ejection fraction is estimated at 55-60 %. Right Ventricle Normal right ventricular size and function. Right ventricular systolic pressure within normal limits. Right Atrium Normal right atrial size. Left Atrium Normal left atrial size. Mitral Valve Mild mitral annular calcification. No mitral stenosis. No mitral regurgitation. Aortic Valve Trileaflet aortic valve. No aortic stenosis. Trace to mild aortic regurgitation. Tricuspid Valve Structurally normal tricuspid valve. Trace tricuspid regurgitation. Pulmonic Valve Trace pulmonic regurgitation. Pericardium No pericardial effusion. Aorta Normal size aortic root and proximal ascending aorta. CONCLUSIONS LVH with preserved systolic function Previewed by: Dr. Kevin Riojas MD (Electronically Signed) Final Date: 04 October 2022 18:59
[2022-10-04] MEDS: LORazepam 1 MG TAB PO PRN (19:34)
[2022-10-04] MEDS: ATORVASTATIN 10 MG TAB PO SCH (19:46)
[2022-10-04] MEDS ORDERED: traZODone HCL 50 MG TAB PO SCH (21:00)
[2022-10-05] MEDS: IPRATROPIUM-ALBUTEROL 3 ML NEB INHALATION SCH ×5 (01:55→19:37)
[2022-10-05] MEDS: LORazepam 1 MG TAB PO PRN (03:18)
[2022-10-05] MEDS: DEXTROSE 5%-0.45% NACL 1,000 ML IV SCH ×2 (05:35→19:04)
[2022-10-05] MEDS: LEVOTHYROXINE 137 MCG TAB PO SCH (05:35)
[2022-10-05] MEDS: BUDESONIDE 1 MG/2 ML NEBU INHALATION SCH ×2 (07:30→19:37)
[2022-10-05] MEDS: HEPARIN SODIUM,PORCINE/PF 5,000 UNIT/0.5 ML SYRINGE SQ SCH ×2 (09:32→15:30)
[2022-10-05] MEDS: FAMOTIDINE 20 MG TAB PO SCH ×2 (09:32→20:38)
[2022-10-05] MEDS: METOPROLOL SUCCINATE (ER) 25 MG TAB.ER.24H PO SCH (09:33)
[2022-10-05] MEDS: amLODIPine 5 MG TAB PO SCH (09:33)
[2022-10-05] MEDS: LORATADINE 10 MG TAB PO SCH ×2 (09:33→20:38)
[2022-10-05] MEDS: VENLAFAXINE HCL ER 75 MG CAP PO SCH (09:33)
[2022-10-05] MEDS: ASPIRIN 81 MG PO SCH (09:34)
[2022-10-05] MEDS: THIAMINE 100 MG TAB PO SCH (09:34)
[2022-10-05] MEDS: diazePAM 2 MG TAB PO SCH ×3 (09:45→20:38)
--- NOTE | 2022-10-05 13:59 | P.PN ---
Subjective Progress Note Date: 10/05/22 The patient is seen at bedside and feels about the same. Denies of any new neurological issues. Objective - Vital Signs Vital signs: Vital Signs Temp 98.4 F 10/05/22 12:00 Pulse 89 10/05/22 12:00 Resp 16 10/05/22 12:00 BP 131/78 10/05/22 12:00 Pulse Ox 97 10/05/22 12:00 FiO2 Intake & Output 10/04/22 10/05/22 10/05/22 18:59 06:59 18:59 Weight 170 kg Other: Voiding Method Toilet # Voids 1 - Exam GENERAL: The patient is lying in bed and is not in acute distress. NEUROLOGICAL: Higher mental function: The patient is awake, alert, oriented to self, place and time. Patient is following commands. No aphasia and no neglect. Cranial nerves: The pupils are round, equal and reactive to light and accommodation. Visual montes are full to confrontation throughout. No diplopia at this time. Extraocular movement is intact no nystagmus is noted. Facial sensation is normal to touch throughout. The facial strength is normal throughout. Hearing is normal bilaterally to hand rub. Tongue is midline and moved [id number] without any difficulty. No dysarthria is noted. Shoulder shrug is normal bilaterally. Motor: Unable to assess gait because of weakness. The strength is right ankle dorsiflexion is 3. Otherwise 5 over 5 throughout. Normal tone and bulk. Cerebellum: Normal finger to nosebilaterally. Sensation: Sensation is normal to touch throughout. Reflexes (right/left): 2+ throughout except right ankle is 1+. Plantars are mute bilaterally. Some other workup during this hospital visit consisted of: TSH is 38.90 and a free T4 is 0.710 which is consistent with hypothyroidism in my opinion History of fall is 6.50 which is low normal Serum folate is 851 Hemoglobin A1c is 5.6 Ammonia level less than 9 Serum alcohol was 236 and the urine drug seen is positive for benzos CT of the head is reported as negative CT scan. No adverse changes. Carotid Duplex is reported as there is antegrade flow in the vertebral arteries. Images and measurements suggest less than 10% stenosis in both internal carotid arteries. CT angiography of the head is reported as no aneurysm at the level [place] 2-D echo was reported as left ventricular hypertrophy with preserved systolic function. - Labs CBC & Chem 7: 10/03/22 16:52 10/03/22 16:52 Labs: Abnormal Lab Results - Last 24 Hours (Table) 10/04/22 Range/Units 08:00 TSH 38.900 H (0.350-5.500) uIU/mL Free (T4) Reflex I 0.710 L (0.800-1.800) ng/dL Assessment and Plan Assessment: * Episodic Diplopia of both eyes for the past 1 month and appears right foot drop bundle in duration. Rule out subacute ischemic stroke. Possible peripheral neuropathy of right lower extremity. Also uncontrolled hypothryoidism can cause visual abnormalities/diplopia * Heavy alcohol use with alcohol intoxication during this hospital visit and the alcohol is 236 * History of hypothyroidism (states that the he's compliant taking his Synthroid which is large dose). But his thyroid levels continue to be abnormal. * History of TIA * Tobacco use Plan: * Pending MRI of the brain with and without. If that does not explain the right foot drop recommend MRI of the lower back and patient denies of any lower back pain. Consider EMG with NCS of lowers to rule out peripheral focal neuropathy as result of weakness of right foot. He stated he crosses his feet which can cause peroneal neuropathy and was recommended to avoid. * Because of low normal folate level (6.5): I started on folic acid 1mg daily * Continue aspirin 325 daily (at home was on 81mg daily). Recommend Lipitor 20mg daily if no liver cirrhosis or issues for secondary stroke prophylaxis. * Continue neuro checks * On cardiac monitoring * PT OT and PROCUREMENT BUYER are consulted * Will defer thyroid issues to primary team. * Continue thiamine 100mg daily * Is on CIWA protocol * Patient was counseled on tobacco cessation and alcohol cessation * We'll defer the rest of the medical management to the primary team * For DVT prophylaxis I started the patient on subcu heparin 5000 it's every 8 hours. * Recommend patient to follow-up with neurologist as outpatient within 1-2 weeks. Plan is discussed with patient and primary team. Dr. Meng will start neurology service tomorrow A.M. Time with Patient: Less than 30
[2022-10-05] MEDS: FOLIC ACID 1 MG TAB PO SCH (15:30)
[2022-10-05] MEDS ORDERED: traZODone HCL 50 MG TAB PO PRN (15:55)
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
[2022-10-05] MEDS: ATORVASTATIN 10 MG TAB PO SCH (20:38)
[2022-10-05] MEDS: MIRTAZAPINE 15 MG TAB PO SCH (20:38)
[2022-10-06] MEDS: IPRATROPIUM-ALBUTEROL 3 ML NEB INHALATION SCH ×7 (00:21→19:31)
[2022-10-06] MEDS: HEPARIN SODIUM,PORCINE/PF 5,000 UNIT/0.5 ML SYRINGE SQ SCH ×4 (01:51→23:36)
[2022-10-06] MEDS: DEXTROSE 5%-0.45% NACL 1,000 ML IV SCH ×2 (01:52→23:36)
[2022-10-06] MEDS: LEVOTHYROXINE 137 MCG TAB PO SCH (06:33)
[2022-10-06] MEDS: BUDESONIDE 1 MG/2 ML NEBU INHALATION SCH ×2 (08:39→19:31)
[2022-10-06] MEDS: FAMOTIDINE 20 MG TAB PO SCH ×2 (09:19→21:00)
[2022-10-06] MEDS: LORATADINE 10 MG TAB PO SCH ×2 (09:19→20:59)
[2022-10-06] MEDS: VENLAFAXINE HCL ER 150 MG CAP PO SCH (09:19)
[2022-10-06] MEDS: FOLIC ACID 1 MG TAB PO SCH (09:19)
[2022-10-06] MEDS: THIAMINE 100 MG TAB PO SCH (09:19)
[2022-10-06] MEDS: ASPIRIN 81 MG PO SCH (09:19)
[2022-10-06] MEDS: METOPROLOL SUCCINATE (ER) 25 MG TAB.ER.24H PO SCH (09:19)
[2022-10-06] MEDS: amLODIPine 5 MG TAB PO SCH (09:19)
[2022-10-06] MEDS: diazePAM 2 MG TAB PO SCH ×2 (09:20→16:53)
--- NOTE | 2022-10-06 11:08 | MR ---
EXAMINATION TYPE: MR brain wo/w con DATE OF EXAM: 10/06/2022 COMPARISON: Prior MRI brain December 05, 2017. CT brain from 3 days ago. HISTORY: diplopia and right foot weakness. TECHNIQUE: Multiplanar, multisequence images of the brain and brainstem is performed without and with IV contras t, utilizing 8 mL intravenous Gadavist . FINDINGS: Diffusion weighted images demonstrate no evidence of a recent infarct or other diffusion ab normality. The ventricular system and cisternal spaces are normal in size and appearance. The brain volume is age appropriate. A few tiny foci of T2 hyperintensity are seen throughout the white matter bilaterally. Less than 5 lesions are again seen. No suspicious intraparenchymal blood product and T2 star weighted images. Midline structures redemonstrate normal morphology. The craniocervical junction appears within romelia l limits. Post contrast images demonstrate no abnormal enhancement. The dural venous sinuses appear patent. Moderate mucosal thickening involving ethmoid sinuses bilaterally is present currently. Mild mucosal thickening in the right frontal sinus is seen. Mild mucosal thickening inferior left sphenoid sinus. Moderate mucosal thickening bilateral maxillary sinuses. No air-fluid levels on current study . Nasal septum is deviated to left of midline. Globes are intact bilaterally. IMPRESSION: No MRI evidence for recent infarct. Chronic paranasal sinusitis redemonstrated. Minimal nonspecific white matter changes again seen. No new suspicious enhancement noted. No significant new findings since 2018 MRI.
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
--- NOTE | 2022-10-06 19:25 | P.PN ---
Subjective Progress Note Date: 10/06/22 Patient initially seen by Dr. Cash Griffith. Please refer to his note for details. Patient is a 52-year-old male with alcohol intoxication with diplopia and right foot weakness. Patient also has hypothyroidism. Patient states he has been having double vision off and on for last 1 month. It can happen couple times a day lasting for few minutes. The double vision can happen when he is raking leaves, watching TV, reading, playing with the dog, or while driving. Feels as if he is falling, needs to grab something even while in the bed. Feels like tipping over. Some other workup during this hospital visit consisted of: TSH is 38.90 and a free T4 is 0.710 which is consistent with hypothyroidism in my opinion History of fall is 6.50 which is low normal Serum folate is 851 Hemoglobin A1c is 5.6 Ammonia level less than 9 Serum alcohol was 236 and the urine drug seen is positive for benzos CT of the head is reported as negative CT scan. No adverse changes. Carotid Duplex is reported as there is antegrade flow in the vertebral arteries. Images and measurements suggest less than 10% stenosis in both internal carotid arteries. CT angiography of the head is reported as no aneurysm at the level [place] of [place] 2-D echo was reported as left ventricular hypertrophy with preserved systolic fu nction. Objective - Vital Signs Vital signs: Vital Signs Temp 98.3 F 10/06/22 16:00 Pulse 74 10/06/22 16:00 Resp 18 10/06/22 16:00 BP 124/77 10/06/22 16:00 Pulse Ox 96 10/06/22 16:00 FiO2 Intake & Output 10/06/22 10/06/22 10/07/22 06:59 18:59 06:59 Weight 79 kg Other: Voiding Method Toilet # Voids 3 2 - Exam Patient is a middle aged male, in no acute distress. Patient has flat affect. Patient is alert awake oriented to time place and person. Speech and language functions are normal. Patient can name and repeat very well. No aphasia or dysarthria. Attention, concentration and fund of knowledge is adequate. On cranial nerve examination, pupils are equal, round and reacting to light. Patient's visual montes revealed questionable right upper lateral visual field deficit. Extraocular muscles are intact with no nystagmus. Face is symmetric, tongue protrudes to the midline. Palatal elevation and sensation normal, hearing and shoulder shrug normal, facial sensation normal. On muscle strength testing, there is no pronator drift and the strength is slightly decreased in the right arm as compared to the left, with giveaway weakness. Muscle strength (right/left) Steam Gigger 4/5, deltoid 5/5, biceps 5/5, triceps 4/5, hip flexion 4/5. Ankle dorsiflexion has fluctuating weakness, sometimes right, sometimes the left. Deep tendon reflexes are asymmetric (right/left) biceps 3+/3, brachial radialis 3+/3, knees 3+/3, ankles 2/2 and plantars are downgoing bilaterally. No clonus. Sensory to touch is equal with no neglect on double simultaneous stimulation. Cerebellar function showed no ataxia for [id number] testing. No ataxia for [id number] testing on either side, although he was tremulous, slow on the right. Tone and bulk of muscles normal. Gait deferred.. On general examination, there is no carotid bruit or murmur, S1-S2 audible. Chest is clear on consultation. Abdomen is soft nontender. No organomegaly, bowel sounds present. Peripheral pulses are present. No edema. - Labs CBC & Chem 7: 10/03/22 16:52 10/03/22 16:52 Assessment and Plan Assessment: * Episodic Diplopia of both eyes for the past 1 month, unclear cause. No evidence of acute stroke on MRI. Rule out alcoholic cranial neuropathy. Rule out cranial neuropathy related to hypothyroidism. * Possible peripheral neuropathy of right lower extremity. * Heavy alcohol use with alcohol intoxication during this hospital visit and the alcohol is 236 * History of hypothyroidism (states that the he's compliant taking his Synthroid which is large dose). But his thyroid levels continue to be abnormal. * History of TIA * Tobacco use Plan: * MRI of the brain with and without revealed no acute infarction. Chronic paranasal sinus disease. Small vessel ischemic disease. I personally reviewed MRI, agree with the findings. Evidence of bilateral maxillary and bilateral ethmoid sinus disease. No acute ischemia noticed. * Consider EMG with NCS of lowers to rule out peripheral focal neuropathy as result of weakness of right foot. He stated he crosses his feet which can cause peroneal neuropathy and was recommended to avoid. * Because of low normal folate level (6.5): Continue folic acid 1mg daily * Continue aspirin 325 daily (at home was on 81mg daily). Recommend Lipitor 20mg daily if no liver cirrhosis or issues for secondary stroke prophylaxis. * Continue neuro checks * On cardiac monitoring, so far revealed sinus rhythm, with sinus tachycardia. No other arrhythmia. * PT OT and COMPOUND FILLER are consulted * Will defer thyroid issues to primary team. * Continue thiamine 100mg daily * Is on CIMD protocol * Patient was counseled on tobacco cessation and alcohol cessation * We'll defer the rest of the medical management to the primary team * For DVT prophylaxis I started the patient on subcu heparin 5000 it's every 8 hours. * Recommend patient to follow-up with neurologist as outpatient within 1-2 weeks. * Check acetylcholine receptor antibodies.
[2022-10-06] MEDS: ATORVASTATIN 10 MG TAB PO SCH (20:59)
[2022-10-06] MEDS: MIRTAZAPINE 15 MG TAB PO SCH (21:00)
[2022-10-06 23:46] VITALS: RESP 18
[2022-10-07] MEDS: IPRATROPIUM-ALBUTEROL 3 ML NEB INHALATION SCH ×5 (00:15→16:16)
[2022-10-07] MEDS: LEVOTHYROXINE 137 MCG TAB PO SCH (06:26)
[2022-10-07] MEDS: amLODIPine 5 MG TAB PO SCH (08:38)
[2022-10-07] MEDS: THIAMINE 100 MG TAB PO SCH (08:38)
[2022-10-07] MEDS: ASPIRIN 81 MG PO SCH (08:38)
[2022-10-07] MEDS: VENLAFAXINE HCL ER 150 MG CAP PO SCH (08:38)
[2022-10-07] MEDS: FOLIC ACID 1 MG TAB PO SCH (08:38)
[2022-10-07] MEDS: LORATADINE 10 MG TAB PO SCH (08:38)
[2022-10-07] MEDS: FAMOTIDINE 20 MG TAB PO SCH (08:38)
[2022-10-07] MEDS: METOPROLOL SUCCINATE (ER) 25 MG TAB.ER.24H PO SCH (08:38)
[2022-10-07] MEDS: DEXTROSE 5%-0.45% NACL 1,000 ML IV SCH (08:39)
[2022-10-07] MEDS: LORazepam 1 MG TAB PO PRN (08:44)
[2022-10-07] MEDS: HEPARIN SODIUM,PORCINE/PF 5,000 UNIT/0.5 ML SYRINGE SQ SCH ×2 (08:44→17:16)
[2022-10-07] MEDS: BUDESONIDE 1 MG/2 ML NEBU INHALATION SCH (08:45)
[2022-10-07 11:15] VITALS: BP 146/83; PULSE 75; TEMP 97.9
--- NOTE | 2022-10-07 14:27 | P.PN ---
Progress Note - Text Progress Note Date: 10/07/22 Interval History: Patient was seen resting in bed and was directable and agreeable to speak with staff writer in his room. Currently, the patient reports that he feels significantly depressed. He reports that he lacks any nicol in his activities. He reports that he feels increased anxiety and panic episodes. He does express that he is currently not suicidal or homicidal. The patient does acknowledge that he has been drinking heavily however expresses desire to not drink anymore. He is asking if he is able to be prescribed any Klonopin or Ativan for management of his panic and anxiety. He was informed that due to his heavy alcohol use, this would be a poor decision as it places him at increased risk of self-harm. The patient underwent significant motivational interviewing with this provider. He is denying any auditory or visual hallucinations. He is not reporting any paranoia or other delusions. He does agree that he needs outpatient follow-up. Mental Status Exam: General Appearance: Patient appears to be stated age is alert, directable, and cooperative. Behavior: Patient is calmly seated without any agitated behavior. Appropriately tearful. Speech: Patient's speech is fluent and nonpressured. Mood/Affect: Mood is improving mildly, affect is congruent and constricted. Suicidality/Homicidality: Patient denies having any suicidal or homicidal ideation intent or plan. Perceptions: Patient denies any visual hallucinations and denies any auditory hallucinations Though content/process: There is no evidence of any delusional thought content and thought process is linear and goal-directed. Memory and concentration: AOX3, grossly intact for the purposes of this session Judgment and insight: Improving mildly Vital Signs Temp 97.9 F 10/07/22 08:00 Pulse 75 10/07/22 08:00 Resp 18 10/07/22 08:00 BP 146/83 10/07/22 08:00 Pulse Ox 96 10/07/22 08:00 FiO2 Intake & Output 10/06/22 10/07/22 10/07/22 18:59 06:59 18:59 Weight 79 kg Other: Voiding Method Toilet Toilet # Voids 2 1 Assessment Major depressive disorder, recurrent, moderate Unspecified anxiety disorder Alcohol use disorder, severe Alcohol withdrawal Tobacco use disorder/nicotine dependence Plan: -At this time patient DOES NOT meet criteria for inpatient psychiatric admission. -Delirium precautions recommended with patient including - avoiding use of narcotics and FRAMEWORK DEVELOPER sedatives, limit anticholinergic medications when possible, frequent re-orientation, minimize use of restraints, open window shades during the day and close them at night -Would recommend the following medication changes/additions: Increase Effexor XR to 225 mg daily in the morning for depression/anxiety. Continue Remeron 15 mg QHS for depression/sleep. Continue trazodone 50 mg QHS PRN for sleep. Nicotine replacement. -CIWA protocol with PRN Ativan for alcohol withdrawal. Continue to monitor vital signs. -Continue to reevaluate safety and initiate sitter if safety concerns arise. -Follow-up with [facility] for psychotropic medication management as soon as possible after discharge. -Director Of Fundraising spoke with patient about substance abuse and the harmful effects on medical and mental health, patient verbally understood and agreed. -product development worker to provide patient substance use treatment resources including AA/NA meetings in the community. -product development worker to provide patient with access line number to call for inpatient substance rehab. -Psychiatry will sign off at this time. Please call us or contact us with any questions or concerns.
[2022-10-07] MEDS ORDERED: AMOXIC-POT CLAV 875-125MG 1 EACH TAB PO SCH (17:17)
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
[2022-10-08] MEDS ORDERED: VENLAFAXINE HCL ER 75 MG CAP PO SCH (09:00)
== END 2022-10-07 18:38 | disposition home health service (06) | DRG 191 ==
LOC: EC 16:08 → 3SCARD 18:29
PROVIDERS: ADMIT Hospitalist; ATTEND Hospitalist
PROC: HZ2ZZZZ Detoxification Services for Substance Abuse Treatment (ICD-10-PCS; principal; 2022-10-04)
DX: J44.1 Chronic obstructive pulmonary disease with (acute) exacerbation (principal); F10.239 Alcohol dependence with withdrawal, unspecified; F33.1 Major depressive disorder, recurrent, moderate; G81.94 Hemiplegia, unspecified affecting left nondominant side; I11.9 Hypertensive heart disease without heart failure; F10.229 Alcohol dependence with intoxication, unspecified; I08.3 Combined rheumatic disorders of mitral, aortic and tricuspid valves; E03.9 Hypothyroidism, unspecified; H53.2 Diplopia; M21.371 Foot drop, right foot; G62.9 Polyneuropathy, unspecified; Y90.7 Blood alcohol level of 200-239 mg/100 ml; F41.9 Anxiety disorder, unspecified; F17.290 Nicotine dependence, other tobacco product, uncomplicated; F17.210 Nicotine dependence, cigarettes, uncomplicated; K29.50 Unspecified chronic gastritis without bleeding; K20.80 Other esophagitis without bleeding; I25.10 Atherosclerotic heart disease of native coronary artery without angina pectoris; E07.81 Sick-euthyroid syndrome; J32.9 Chronic sinusitis, unspecified; Z79.899 Other long term (current) drug therapy; Z79.890 Hormone replacement therapy; Z79.82 Long term (current) use of aspirin; I25.2 Old myocardial infarction; Z86.73 Personal history of transient ischemic attack (TIA), and cerebral infarction without residual deficits; Z88.8 Allergy status to other drugs, medicaments and biological substances; Z28.310 Unvaccinated for COVID-19
CPT/HCPCS: 36415; 70450; 70496; 70553; 71046; 80053; 80061; 80306; 80320; 82140; 82607; 82746; 83036; 83519; 83735; 84439; 84443; 84484; 85025; 85610; 85730; 87636; 93005; 93306; 93880; 94640; 96360; 96361; 96372; 99285

== ENCOUNTER 2022-10-11 18:54 | Observation (INO) | payer OTHER ==
--- NOTE | 2022-10-11 19:25 | ED ---
General Adult HPI - General Chief complaint: Alcohol Stated complaint: ETOH Time Seen by Provider: 10/11/22 18:58 Source: patient Mode of arrival: ambulatory Limitations: no limitations - History of Present Illness Initial comments: Dictation was produced using [employer] dictation software. please excuse any grammatical, word or spelling errors. Chief Complaint: 52-year-old male presents emergency department for a wellness check History of Present Illness: Patient is 52-year-old male who is brought in by police. Patient was found living in his car. Police department found patient and called EMS with and brought patient to the emergency department for welfare check. Chart review shows that patient was recently admitted for depression and a call intoxication. His discharge 4 days ago. Patient denies any complaints except that he feels that he has emotional pain which makes and wants to cry because he used to love go to work tonight doesn't. He's been jerking alcohol daily. To drinking 1 pint of vodka today. The ROS documented in this emergency department record has been reviewed and confirmed by me. Those systems with pertinent positive or negative responses have been documented in the HPI. All other systems are other negative and/or noncontributory. PHYSICAL EXAM: General Impression: Alert and oriented x3, not in acute distress, smells of EtOH HEENT: Normocephalic atraumatic, extra-ocular movements intact, pupils equal and reactive to light bilaterally, mucous membranes moist. Cardiovascular: Heart regular rate and rhythm Chest: Able to complete full sentences, no retractions, no tachypnea Abdomen: abdomen soft, non-tender, non-distended, no organomegaly Musculoskeletal: Pulses present and equal in all extremities, no peripheral edema Motor: no focal deficits noted Neurological: CN II-XII grossly intact, no focal motor or sensory deficits noted Skin: Intact with no visualized rashes Psych: Tearful ED course: 52-year-old male presents to the emergency department for a wellness check. Brought in by EMS. Vital signs upon arrival shows heart rate of 111, rest of vital signs within acceptable limits. Nursing notes and chart review was performed Chart review was performed. Patient was advised by psych and neurology during last admission. My EKG interpretation: Ventricular rate 19, sinus tachycardia,. 152, QRS 92, QTc 386. No OH prolongation, no QTC prolongation, no ST or T-wave changes noted. . Overall, this EKG is unremarkable CBC unremarkable. Metabolic panel shows sodium 148, no acidosis. 5.3 potassium with hemolysis. Alcohol is 407. Patient be admitted for EtOH intoxication Was pt. sent in by a medical professional or institution (PATRICIA Sosa, [facility]DER, urgent care, hospital, or jail...) When possible be specific @ -Police Did you speak to anyone other than the patient for history (EMS, parent, family, police, friend...)? What history was obtained from this source @ -EMS Did you review nursing and triage notes (agree or disagree)? Why? @ -I reviewed and agree with nursing and triage notes Were old charts reviewed (outside hosp., previous admission, EMS record, old EKG, old radiological studies, urgent care reports/EKG's, jail records)? Report findings @ -Discharge summary and psychiatric notes reviewed from previous admission Differential Diagnosis (chest pain, altered mental status, abdominal pain women, abdominal pain men, vaginal bleeding, weakness, fever, dyspnea, syncope, headache, dizziness, GI bleed, back pain, seizure, CVA, palpatations, mental hea lth)? @ -Differential Altered Mental Status: Hypoglycemia, DKA, hypercapnia, ETOH, overdose, CO poisoning, trauma, myxedema coma, HTN encephalopathy, infection, encephalitis, psychosis, intercranial hemorrhage, hepatic encephalopathy, meningitis, CVA, this is not meant to be an all-inclusive list EKG interpreted by me (3pts min.). @ -As above X-rays interpreted by me (1pt min.). @ -None done CT interpreted by me (1pt min.). @ -None done U/S interpreted by me (1pt. min.). @ -None done What testing was considered but not performed or refused? (CT, X-rays, U/S, labs)? Why? @ -Imaging was considered however patient does not have any signs of trauma on physical examination What meds were considered but not given or refused? Why? @ -None Did you discuss the management of the patient with other professionals (professionals i.e. PATRICIA Sosa, [facility] MOLDER, lab, RT, psych nurse, social group worker, shredded filler cutter operator, teacher, special service officer, caser)? Give summary @ -[facility] hospitalist group attending/mid-level functional tester Was smoking cessation discussed for >3mins.? @ -No Was critical care preformed (if so, how long)? @ -No Were there social determinants of health that impacted care today? How? (Homelessness, low income, unemployed, alcoholism, drug addiction, transportation, low edu. Level, literacy, decrease access to med. care, intermediate, rehab)? @ -Homelessness, alcoholism Was there de-escalation of care discussed even if they declined (Discuss DNR or withdrawal of care, Hospice)? DNR status @ -No What co-morbidities impacted this encounter? (DM, HTN, Smoking, COPD, CAD, Cancer, CVA, ARF, Chemo, Hep., AIDS, mental health diagnosis, sleep apnea, morbid obesity)? @ -Alcoholism, depression Was patient admitted / discharged? Hospital course, mention meds given and route, prescriptions, significant lab abnormalities, going to OR and other pertinent info. @ -See above Undiagnosed new problem with uncertain prognosis? @ -No Drug Therapy requiring intensive monitoring for toxicity (Heparin, Nitro, Insulin, Cardizem)? @ -No Were any procedures done? @ -No Diagnosis/symptom? @ -Acute EtOH intoxication Acute, or Chronic, or Acute on Chronic? @ -Acute Uncomplicated (without systemic symptoms) or Complicated (systemic symptoms)? @ -default Side effects of treatment? @ -No Exacerbation, Progression, or Severe Exacerbation? @ -No Poses a threat to life or bodily function? How? (Chest pain, [place], [place], pneumonia, PE, COPD, DKA, ARF, appy, cholecystitis, CVA, Diverticulitis, Homicidal, Suicidal, threat to staff... and all critical care pts) @ -Yes - Related Data Home Medications Medication Instructions Recorded Confirmed Albuterol Sulfate [Proair Hfa] 1 - 2 puff INHALATION RT-Q6H PRN 07/08/22 10/03/22 Levothyroxine Sodium [Synthroid] 137 mcg PO DAILY 07/08/22 10/03/22 Nitroglycerin Sl Tabs [Nitrostat] 0.4 mg SUBLINGUAL Q5M PRN 07/08/22 10/03/22 Simvastatin [Zocor] 20 mg PO HS 07/08/22 10/03/22 clonazePAM 1 mg PO BID PRN 07/08/22 10/03/22 Cetirizine HCl 10 mg PO DAILY 09/14/22 10/03/22 Ibuprofen [Motrin] 600 mg PO Q8HR PRN 09/14/22 10/03/22 amLODIPine [Norvasc] 5 mg PO DAILY 09/14/22 10/03/22 Previous Rx's Medication Instructions Recorded Metoprolol Succinate (ER) [Toprol 25 mg PO DAILY #1 07/11/22 XL] Amoxic-Pot Clav 875-125Mg 1 tab PO BID 1 Days #14 tab 10/07/22 [Augmentin 875-125] Aspirin 325 mg PO DAILY #30 tab 10/07/22 Budesonide/Formoterol Fumarate 1 puff INHALATION BID #10.2 gm 10/07/22 [Symbicort 80-4.5 Mcg Inhaler] Famotidine [Pepcid] 20 mg PO BID #60 tab 10/07/22 Folic Acid 1 mg PO DAILY #30 tab 10/07/22 Mirtazapine [Remeron] 15 mg PO HS #30 tab 10/07/22 Thiamine [Vitamin B-1] 100 mg PO DAILY #30 tab 10/07/22 Venlafaxine HCl ER [Effexor XR] 150 mg PO DAILY #30 cap 10/07/22 Venlafaxine HCl [Effexor XR] 75 mg PO DAILY #30 tab 10/07/22 traZODone HCL [Desyrel] 50 mg PO HS PRN #0 10/07/22 Allergies Allergy/AdvReac Type Severity Reaction Status Date / Time promethazine HCl Allergy Unknown Verified 10/11/22 19:00 [From Phenergan] Childhood Review of Systems ROS Statement: Those systems with pertinent positive or pertinent negative responses have been documented in the HPI. ROS Other: All systems not noted in ROS Statement are negative. Past Medical History Past Medical History: Myocardial Infarction ([place]), Thyroid Disorder Additional Past Medical History / Comment(s): ETOH Last Myocardial Infarction Date:: 01/12/22 History of Any Multi-Drug Resistant Organisms: None Reported Past Surgical History: No Surgical Hx Reported Past Anesthesia/Blood Transfusion Reactions: No Reported Reaction Past Psychological History: Anxiety Smoking Status: Current every day smoker Past Alcohol Use History: None Reported Past Drug Use History: None Reported General Exam Limitations: no limitations Course Vital Signs 10/11/22 18:55 Temperature 98.3 F Pulse Rate 111 H Respiratory 18 Rate Blood Pressure 125/106 O2 Sat by Pulse 95 Oximetry Medical Decision Making - Lab Data Result diagrams: 10/11/22 19:36 10/11/22 19:36 Lab Results 10/11/22 10/11/22 Range/Units 19:36 19:36 WBC 7.0 (3.8-10.6) k/uL RBC 5.12 (4.30-5.90) m/uL Hgb 17.0 (13.0-17.5) gm/dL Hct 51.7 (39.0-53.0) % MCV 100.9 H (80.0-100.0) fL MCH 33.2 (25.0-35.0) pg MCHC 32.9 (31.0-37.0) g/dL RDW 15.3 (11.5-15.5) % Plt Count 263 (150-450) k/uL MPV 7.2 Neutrophils % 50 % Lymphocytes % 39 % Monocytes % 3 % Eosinophils % 5 % Basophils % 1 % Neutrophils # 3.5 (1.3-7.7) k/uL Lymphocytes # 2.7 (1.0-4.8) k/uL Monocytes # 0.2 (0-1.0) k/uL Eosinophils # 0.3 (0-0.7) k/uL Basophils # 0.1 (0-0.2) k/uL Macrocytosis Slight Sodium 148 H (137-145) mmol/L Potassium 5.3 H (3.5-5.1) mmol/L Chloride 111 H (98-107) mmol/L Carbon Dioxide 24 (22-30) mmol/L Anion Gap 13 mmol/L BUN 12 (9-20) mg/dL Creatinine 0.84 (0.66-1.25) mg/dL Est GFR (CKD-EPI)AfAm >90 (>60 ml/min/1.73 sqM) Est GFR (CKD-EPI)NonAf >90 (>60 ml/min/1.73 sqM) Glucose 138 H (74-99) mg/dL Calcium 8.7 (8.4-10.2) mg/dL Serum Alcohol 407 H* mg/dL Disposition Clinical Impression: Alcohol intoxication Disposition: ADMITTED IP TO THIS [facility] Condition: Fair Referrals: Murray Olivares MD [Primary Care Provider] - 1-2 days Decision Time: 20:21
[2022-10-11 19:47] LABS: Basophils # (A) 0.1 k/uL (0-0.2); Basophils % (A) 1 %; Eosinophils # (A) 0.3 k/uL (0-0.7); Eosinophils % (A) 5 %; HCT 51.7 % (39.0-53.0); Lymphocytes # (A) 2.7 k/uL (1.0-4.8); Lymphocytes % (A) 39 %; MCH 33.2 pg (25.0-35.0); MCHC 32.9 g/dL (31.0-37.0); MCV 100.9 fL (80.0-100.0); Macrocytosis Slight; Mean Platelet Volume 7.2; Monocytes # (A) 0.2 k/uL (0-1.0); Monocytes % (A) 3 %; Neutrophils # (A) 3.5 k/uL (1.3-7.7); Neutrophils % (A) 50 %; Platelet Count 263 k/uL (150-450); RBC 5.12 m/uL (4.30-5.90); RDW 15.3 % (11.5-15.5)
[2022-10-11 19:58] LABS: African American GFR (CKD) >90 (>60 ml/min/1.73 sqM); Anion Gap 13 mmol/L; Blood Urea Nitrogen 12 mg/dL (9-20); Calcium 8.7 mg/dL (8.4-10.2); Carbon Dioxide 24 mmol/L (22-30); Chloride 111 mmol/L (98-107); Glucose 138 mg/dL (74-99); Non-African American GFR(CKD) >90 (>60 ml/min/1.73 sqM); Sodium 148 mmol/L (137-145)
[2022-10-11 20:08] LABS: Alcohol 407 mg/dL; Potassium 5.3 mmol/L (3.5-5.1)
[2022-10-11] MEDS ORDERED: NALOXONE 0.4 MG/ML 1 ML VIAL IV PRN (20:16)
[2022-10-11] MEDS ORDERED: LORazepam 2 MG/ML INJ IV PRN (20:18)
[2022-10-11] MEDS ORDERED: THIAMINE 100 MG/ML 2 ML VIAL IM STA (20:18)
[2022-10-11] MEDS: SODIUM CHLORIDE 0.9% 1,000 ML IV SCH (20:23)
[2022-10-11] MEDS: LORazepam 2 MG/ML INJ IV PRN (22:03)
[2022-10-12] MEDS: LORazepam 2 MG/ML INJ IV PRN ×4 (01:15→20:22)
[2022-10-12] MEDS: SODIUM CHLORIDE 0.9% 1,000 ML IV SCH (10:14)
[2022-10-12] MEDS: THIAMINE 100 MG TAB PO SCH (10:15)
[2022-10-12] MEDS ORDERED: traZODone HCL 50 MG TAB PO PRN (11:59)
--- NOTE | 2022-10-12 12:08 | P.HPIM ---
History of Present Illness H&P Date: 10/12/22 Wilma present illness; patient is a 52-year-old gentleman with past medical history significant for alcohol abuse, hypertension, hyperlipidemia, depression presents to the ER after being brought in by police for wellness check. Patient was only recently discharged after being treated for alcohol detox and depression. Patient was found living in his car, was intoxicated. Patient was crying and was very depressed. Patient is having social stressors with his fiance. Initial lab work in the ER showed patient to have us white count of 7, RBC of 5.12, hemoglobin 17, sodium 148, potassium 5.3, chloride 111, BUN 12, creatinine 0.84, alcohol level of 407. Patient was admitted for further evaluation and treatment REVIEW OF SYSTEMS: CONSTITUTIONAL: No fever. Complaining of generalized weakness HEENT: No recent visual problems or hearing problems. Denied any sore throat. CARDIOVASCULAR: No chest pain, orthopnea, PND, no palpitations, no syncope. PULMONARY: No shortness of breath, no cough, no hemoptysis. GASTROINTESTINAL: No diarrhea, no nausea, no vomiting, no abdominal pain. NEUROLOGICAL: No headaches, no weakness, no numbness. HEMATOLOGICAL: Denies any bleeding or petechiae. GENITOURINARY: Denies any burning micturition, frequency, or urgency. MUSCULOSKELETAL/RHEUMATOLOGICAL: Denies any joint pain, swelling, or any muscle pain. ENDOCRINE: Denies any polyuria or polydipsia. The rest of the 14-point review of systems is negative. PHYSICAL EXAMINATION: GENERAL: The patient is alert and oriented x3, not in any acute distress. Well developed, well nourished. HEENT: Pupils are round and equally reacting to light. EOMI. No scleral icterus. No conjunctival pallor. Normocephalic, atraumatic. No pharyngeal erythema. No thyromegaly. CARDIOVASCULAR: S1 and S2 present. No murmurs, rubs, or gallops. PULMONARY: Chest is clear to auscultation, no wheezing or crackles. ABDOMEN: Soft, nontender, nondistended, normoactive bowel sounds. No palpable organomegaly. MUSCULOSKELETAL: No joint swelling or deformity. EXTREMITIES: No cyanosis, clubbing, or pedal edema. NEUROLOGICAL: Gross neurological examination did not reveal any focal deficits. SKIN: No rashes. Assessment and plan Alcohol detox Depression Hypertension Hypothyroidism Hyperlipidemia History of [place] TIA Plan; Monitor vital signs Monitor CBC Monitor electrolytes. Continue thiamine and folic acid Continue CIWA protocol Consults psychiatry. Resume home meds Past Medical History Past Medical History: Coronary Artery Disease (CAD), Hypertension, Myocardial Infarction ([place]), Thyroid Disorder Additional Past Medical History / Comment(s): ETOH Last Myocardial Infarction Date:: 01/12/22 History of Any Multi-Drug Resistant Organisms: None Reported Past Surgical History: No Surgical Hx Reported Past Anesthesia/Blood Transfusion Reactions: No Reported Reaction Past Psychological History: Anxiety, Depression Smoking Status: Current every day smoker Past Alcohol Use History: None Reported Past Drug Use History: None Reported Medications and Allergies Home Medications Medication Instructions Recorded Confirmed Type Albuterol Sulfate [Proair Hfa] 1 - 2 puff INHALATION RT-Q6H PRN 07/08/22 10/11/22 History Levothyroxine Sodium [Synthroid] 137 mcg PO DAILY 07/08/22 10/11/22 History Nitroglycerin Sl Tabs [Nitrostat] 0.4 mg SUBLINGUAL Q5M PRN 07/08/22 10/11/22 History Simvastatin [Zocor] 20 mg PO HS 07/08/22 10/11/22 History clonazePAM 1 mg PO BID PRN 07/08/22 10/11/22 History Metoprolol Succinate (ER) [Toprol 25 mg PO DAILY #1 07/11/22 10/11/22 Rx XL] Cetirizine HCl 10 mg PO DAILY 09/14/22 10/11/22 History Ibuprofen [Motrin] 600 mg PO Q8HR PRN 09/14/22 10/11/22 History amLODIPine [Norvasc] 5 mg PO DAILY 09/14/22 10/11/22 History Amoxic-Pot Clav 875-125Mg 1 tab PO BID 1 Days #14 tab 10/07/22 10/11/22 Rx [Augmentin 875-125] Aspirin 325 mg PO DAILY #30 tab 10/07/22 10/11/22 Rx Famotidine [Pepcid] 20 mg PO BID #60 tab 10/07/22 10/11/22 Rx Folic Acid 1 mg PO DAILY #30 tab 10/07/22 10/11/22 Rx Mirtazapine [Remeron] 15 mg PO HS #30 tab 10/07/22 10/11/22 Rx Thiamine [Vitamin B-1] 100 mg PO DAILY #30 tab 10/07/22 10/11/22 Rx traZODone HCL [Desyrel] 50 mg PO HS PRN #0 10/07/22 10/11/22 Rx Budesonide/Formoterol Fumarate 1 puff INHALATION RT-BID 10/11/22 10/11/22 History [Symbicort 80-4.5 Mcg Inhaler] Venlafaxine HCl ER [Effexor XR] 150 mg PO DIRECTED 10/11/22 10/11/22 History Venlafaxine HCl [Effexor XR] 75 mg PO DIRECTED 10/11/22 10/11/22 History Allergies Allergy/AdvReac Type Severity Reaction Status Date / Time promethazine HCl Allergy Unknown Verified 10/11/22 19:00 [From Phenergan] Childhood Physical Exam Vitals: Vital Signs Temp Pulse Pulse Resp BP BP Pulse Ox 10/12/22 07:16 98.5 F 100 18 119/70 92 L 10/12/22 01:49 97.4 F L 113 H 16 122/71 94 L 10/11/22 21:55 98.8 F 122 H 16 148/87 93 L 10/11/22 21:00 109 H 18 101/65 96 10/11/22 20:49 98.8 F 99 16 148/87 10/11/22 20:42 105 H 10/11/22 20:39 113 H 24 149/90 96 10/11/22 18:55 98.3 F 111 H 18 125/106 95 Intake and Output 10/11/22 10/12/22 10/12/22 22:59 06:59 14:59 Intake Total 960 Balance 960 Intake: Intake, IV Titration 240 Amount Sodium Chloride 0.9% 1, 240 000 ml @ 20 mls/hr IV . Q24H [facility] Rx#:[id number] Oral 720 Other: Weight 83.915 kg Results CBC & Chem 7: 10/11/22 19:36 10/11/22 19:36 Labs: Abnormal Lab Results - Last 24 Hours (Table) 10/11/22 10/11/22 Range/Units 19:36 19:36 MCV 100.9 H (80.0-100.0) fL Sodium 148 H (137-145) mmol/L Potassium 5.3 H (3.5-5.1) mmol/L Chloride 111 H (98-107) mmol/L Glucose 138 H (74-99) mg/dL Serum Alcohol 407 H* mg/dL Thrombosis Risk Factor Assmnt - Choose All That Apply Any of the Below Risk Factors Present?: Yes Each Factor Represents 1 point: Age 41-60 years Other Risk Factors: No Other congenital or acquired thrombophilia - If yes, enter type in comment: No Thrombosis Risk Factor Assessment Total Risk Factor Score: 1 Thrombosis Risk Factor Assessment Level: Low Risk
[2022-10-12] MEDS: SYMBICORT 80-4.5 MCG INHALER INHALATION SCH (19:53)
[2022-10-12] MEDS: MIRTAZAPINE 15 MG TAB PO SCH (20:28)
[2022-10-12] MEDS: FAMOTIDINE 20 MG TAB PO SCH (20:28)
[2022-10-12] MEDS: ATORVASTATIN 10 MG TAB PO SCH (20:28)
[2022-10-12 21:24] LABS: Glucose,Whole Blood 129 mg/dL (70-110)
[2022-10-13] MEDS: LORazepam 2 MG/ML INJ IV PRN ×5 (00:30→18:39)
[2022-10-13] MEDS: LEVOTHYROXINE 137 MCG TAB PO SCH (05:53)
[2022-10-13 06:32] LABS: Glucose,Whole Blood 91 mg/dL (70-110)
[2022-10-13] MEDS: LORATADINE 10 MG TAB PO SCH (08:30)
[2022-10-13] MEDS: amLODIPine 5 MG TAB PO SCH (08:30)
[2022-10-13] MEDS: THIAMINE 100 MG TAB PO SCH (08:30)
[2022-10-13] MEDS: clonazePAM 1 MG TAB PO PRN ×2 (08:30→21:49)
[2022-10-13] MEDS: ASPIRIN 325 MG TAB PO SCH (08:30)
[2022-10-13] MEDS: FAMOTIDINE 20 MG TAB PO SCH ×2 (08:30→21:42)
[2022-10-13] MEDS: FOLIC ACID 1 MG TAB PO SCH (08:30)
[2022-10-13] MEDS: METOPROLOL SUCCINATE (ER) 25 MG TAB.ER.24H PO SCH (08:30)
[2022-10-13 08:59] LABS: African American GFR (CKD) 88.4 (60.0-200.0); Albumin 3.6 g/dL (3.8-4.9); Albumin/Globulin Ratio 1.71 (1.60-3.17); Anion Gap 9.2 mmol/L (10.00-18.00); BUN/Creat Ratio 7.45 Ratio (12.00-20.00); Blood Urea Nitrogen 8.2 mg/dL (9.0-27.0); Calcium 8.1 mg/dL (8.7-10.3); Carbon Dioxide 27.8 mmol/L (20.0-27.5); Globulin 2.1 g/dL (1.6-3.3); Non-African American GFR(CKD) 76.2 (60.0-200.0); Potassium 4.2 mmol/L (3.5-5.5); Total Bilirubin 0.9 mg/dL (0.30-1.20); Total Protein 5.7 g/dL (6.2-8.2)
[2022-10-13] MEDS ORDERED: THIAMINE 100 MG TAB PO SCH (09:00)
[2022-10-13 09:17] LABS: HCT 44.6 % (39.6-50.0); HGB 14.8 g/dL (13.0-17.0); MCH 32.9 pg (27.0-32.0); MCHC 33.2 g/dL (32.0-37.0); MCV 99.1 fL (80.0-97.0); Mean Platelet Volume 9.1 fL (9.5-12.2); NRBC Per 100 WBC 0 /100 WBCS (0.0-0.0); Platelet Count 226 X 10*3/uL (140-440); RDW 15.3 % (11.5-14.5)
[2022-10-13 11:26] LABS: Glucose,Whole Blood 92 mg/dL (70-110)
[2022-10-13] MEDS: SYMBICORT 80-4.5 MCG INHALER INHALATION SCH ×2 (11:27→19:31)
[2022-10-13 11:44] LABS: Basophils # (A) 0.05 X 10*3/uL (0.00-0.10); Basophils % (A) 0.6 %; Eosinophils # (A) 0.24 X 10*3/uL (0.04-0.35); Eosinophils % (A) 2.8 %; Immature Grans, Automated 0.6 %; Lymphocytes # (A) 1.22 X 10*3/uL (0.90-5.00); Lymphocytes % (A) 14.2 %; Monocytes # (A) 1.63 X 10*3/uL (0.20-1.00); Neutrophils # (A) 5.41 X 10*3/uL (1.80-7.70); Neutrophils % (A) 62.8 %; RBC Morphology NORMAL
--- NOTE | 2022-10-13 13:41 | P.PN ---
Subjective Progress Note Date: 10/13/22 patient is a 52-year-old gentleman with past medical history significant for alcohol abuse, hypertension, hyperlipidemia, depression presents to the ER after being brought in by police for wellness check. Patient was only recently discharged after being treated for alcohol detox and depression. Patient was found living in his car, was intoxicated. Patient was crying and was very depressed. Patient is having social stressors with his fiance. Initial lab work in the ER showed patient to have us white count of 7, RBC of 5.12, hemoglobin 17, sodium 148, potassium 5.3, chloride 111, BUN 12, creatinine 0.84, alcohol level of 407. Patient was admitted for further evaluation and treatment 10/13. Patient seen and examined. States he feels better than yesterday. Patient was to go to inpatient alcohol rehab REVIEW OF SYSTEMS: CONSTITUTIONAL: No fever, no malaise,. CARDIOVASCULAR: No chest pain, no palpitations, no syncope. PULMONARY: No shortness of breath, no cough, GASTROINTESTINAL: No diarrhea, no nausea, no vomiting, no abdominal pain. NEUROLOGICAL: No headaches, no weakness, PHYSICAL EXAMINATION: GENERAL: The patient is alert and oriented x3, not in any acute distress. Well developed, well nourished. HEENT: Pupils are round and equally reacting to light. EOMI. No scleral icterus. No conjunctival pallor. Normocephalic, atraumatic. No pharyngeal erythema. No thyromegaly. CARDIOVASCULAR: S1 and S2 present. No murmurs, rubs, or gallops. PULMONARY: Chest is clear to auscultation, no wheezing or crackles. ABDOMEN: Soft, nontender, nondistended, normoactive bowel sounds. No palpable organomegaly. MUSCULOSKELETAL: No joint swelling or deformity. EXTREMITIES: No cyanosis, clubbing, or pedal edema. NEUROLOGICAL: Gross neurological examination did not reveal any focal deficits. SKIN: No rashes. Assessment and plan Alcohol detox Depression Hypertension Hypothyroidism Hyperlipidemia History of [place] TIA Plan; Monitor vital signs Monitor CBC Monitor electrolytes. Continue thiamine and folic acid Continue [facility] protocol Follow-up on psych recommendations Objective - Vital Signs Vital signs: Vital Signs Temp 98.4 F 10/13/22 11:52 Pulse 84 10/13/22 11:52 Resp 22 10/13/22 11:52 BP 152/93 10/13/22 11:52 Pulse Ox 97 01/16/23 11:52 FiO2 Intake & Output 10/12/22 10/13/22 10/13/22 18:59 06:59 18:59 Intake Total 500 Balance 500 Intake: Oral 500 Other: Voiding Method Toilet # Voids 2 2 # Bowel Movements 0 - Labs CBC & Chem 7: 10/13/22 04:53 10/13/22 04:53 Labs: Abnormal Lab Results - Last 24 Hours (Table) 10/12/22 10/13/22 10/13/22 Range/Units 21:14 04:53 04:53 MCV 99.1 H (80.0-97.0) fL MCH 32.9 H (27.0-32.0) pg RDW 15.3 H (11.5-14.5) % MPV 9.1 L (9.5-12.2) fL Immature Gran # 0.05 H (0.00-0.04) X 10*3/uL Monocytes # 1.63 H (0.20-1.00) X 10*3/uL Carbon Dioxide 27.8 H (20.0-27.5) mmol/L Anion Gap 9.20 L (10.00-18.00) mmol/L BUN 8.2 L (9.0-27.0) mg/dL BUN/Creatinine Ratio 7.45 L (12.00-20.00) Ratio POC Glucose (mg/dL) 129 H (70-110) mg/dL Calcium 8.1 L (8.7-10.3) mg/dL Total Protein 5.7 L (6.2-8.2) g/dL Albumin 3.6 L (3.8-4.9) g/dL
--- NOTE | 2022-10-13 13:51 | P.CN ---
Psychiatric Consult - . Consult date: 10/13/22 Consult:: 10/13/22 13:49 IDENTIFYING DATA: This patient is a 52 year old male with a significant history of alcohol use disorder and depression who presented to the hospital on 10/11/2022 brought in by police during a wellness check. HISTORY OF PRESENT ILLNESS: The patient presented to the hospital on 10/11/2022, brought into the emergency department by police after a wellness check. The patient was recently discharged from the hospital after being detoxified from alcohol. Patient was noted to be found living in his car and severely intoxicated. He was noted to be crying and endorsing significant depression. He was susbsequently admitted to the medical floor for alcohol intoxication. Upon evaluation on the medical floor, the patient does endorse significant symptoms of depression. He reports he he has been depressed with low mood, anhedonia, excessive guilt, decreased energy, poor concentration, and decreased appetite. He however vehemently denies any suicidal or homicidal ideation, intention, and/or plan. He reports no prior attempts at suicide. The patient reports he has numerous stressors including his current relationship with his partner and the ailing health of his father. He states his mother suddenly in the past and that it has been easier coping with her loss over the gradual decline of his father. In regards to other psychiatric symptoms, the patient does not endorse any hist ory of auditory or visual hallucinations. He reports no paranoia or other delusions. He does report elevated anxiety and a history of panic attacks. He is chronically prescribed klonopin from his primary care provider however states that he does not drink when he takes this medication. In regards to substance use, the patient does admit to drinking approximately a fifth of liquor per day. He has had many recent medical admissions for alcohol intoxication. He expresses a desire to quit alcohol today. He desires to go to inpatient substance abuse rehabilitation. PAST PSYCHIATRIC HISTORY: Patient has a a history of depression, anxiety, and alcohol use disorder. He is currentl yon a regimen of mirtazapine, effexor and klonopin. Patient denies any previous psychiatric hospitalizations. He is open with [facility] however has not followed up. Patient denies any history of suicide attempts in the past. PAST MEDICAL HISTORY: Past Medical History: Coronary Artery Disease (CAD), Hypertension, Myocardial Infarction ([place]), Thyroid Disorder Additional Past Medical History / Comment(s): ETOH Last Myocardial Infarction Date:: 01/12/22 History of Any Multi-Drug Resistant Organisms: None Reported Past Surgical History: No Surgical Hx Reported Past Anesthesia/Blood Transfusion Reactions: No Reported Reaction Past Psychological History: Anxiety, Depression Smoking Status: Current every day smoker Past Alcohol Use History: None Reported Past Drug Use History: None Reported ALLERGIES: promethazine. CHEMICAL DEPENDENCY HISTORY: Patient reports drinking up to a fifth of liquor per day. Last drink was on day of admission. He reports smoking cigars daily. He denies any other drug use. FAMILY PSYCHIATRIC/SUBSTANCE USE HISTORY: Patient reports a nephew who is also alcoholic. SOCIAL HISTORY: Patient is engaged to his partner Mercedes. His sister is supportive in his effort to quit alcohol. MENTAL STATUS EXAM: General Appearance: Patient appears to be stated age is alert, pleasant, and cooperative. Patient appears to have fair hygiene and grooming wearing hospital gown with fair eye contact. Apprpriately tearful. Behavior: Patient is calmly lying in bed without any agitated behavior. Speech: Patient's speech is fluent and nonpressured. Mood/Affect: Patient reports their mood is "depressed", affect is congruent and tearful Suicidality/Homicidality: Patient is vehemently denying any suicidal or homicidal ideation, intention, and/or plan. Perceptions: Patient denies any visual hallucinations and denies any auditory hallucinations Though content/process: There is no evidence of any delusional thought content and thought process is linear and goal-directed. Memory and concentration: AOX3, grossly intact for the purposes of this session. Can spell "WORLD" backwards Judgment and insight: Fair Vital Signs Temp 98.4 F 10/13/22 11:52 Pulse 84 10/13/22 11:52 Resp 22 10/13/22 11:52 BP 152/93 10/13/22 11:52 Pulse Ox 97 10/13/22 11:52 FiO2 Intake & Output 10/12/22 10/13/22 10/13/22 18:59 06:59 18:59 Intake Total 500 Balance 500 Intake: Oral 500 Other: Voiding Method Toilet # Voids 2 2 # Bowel Movements 0 Laboratory Results WBC 8.60 X 10*3/uL (4.50-10.00) 10/13/22 04:53 RBC 4.50 X 10*6/uL (4.40-5.60) 10/13/22 04:53 Hgb 14.8 g/dL (13.0-17.0) 10/13/22 04:53 Hct 44.6 % (39.6-50.0) 10/13/22 04:53 MCV 99.1 fL (80.0-97.0) H 10/13/22 04:53 MCH 32.9 pg (27.0-32.0) H 10/13/22 04:53 MCHC 33.2 g/dL (32.0-37.0) 10/13/22 04:53 RDW 15.3 % (11.5-14.5) H 10/13/22 04:53 Plt Count 226 X 10*3/uL (140-440) 10/13/22 04:53 Plt Count Comment Adequate 10/13/22 04:53 MPV 9.1 fL (9.5-12.2) L 10/13/22 04:53 Immature Gran % (Auto) 0.6 % 10/13/22 04:53 Absolute Nucleated RBC 0 X 10*3/uL (0.00-0.00) 10/13/22 04:53 Neutrophils % 62.8 % 10/13/22 04:53 Lymphocytes % 14.2 % 10/13/22 04:53 Monocytes % 19.0 % 10/13/22 04:53 Eosinophils % 2.8 % 10/13/22 04:53 Basophils % 0.6 % 10/13/22 04:53 Immature Gran # 0.05 X 10*3/uL (0.00-0.04) H 10/13/22 04:53 Neutrophils # 5.41 X 10*3/uL (1.80-7.70) 10/13/22 04:53 Lymphocytes # 1.22 X 10*3/uL (0.90-5.00) 10/13/22 04:53 Monocytes # 1.63 X 10*3/uL (0.20-1.00) H 10/13/22 04:53 Eosinophils # 0.24 X 10*3/uL (0.04-0.35) 10/13/22 04:53 Basophils # 0.05 X 10*3/uL (0.00-0.10) 10/13/22 04:53 NRBC/100 WBC Diff 0 /100 WBCS (0.0-0.0) 10/13/22 04:53 RBC Morphology NORMAL 10/13/22 04:53 Macrocytosis Slight 10/11/22 19:36 Sodium 139 mmol/L (135-145) 10/13/22 04:53 Potassium 4.2 mmol/L (3.5-5.5) 10/13/22 04:53 Chloride 102 mmol/L (96-109) 10/13/22 04:53 Carbon Dioxide 27.8 mmol/L (20.0-27.5) H 10/13/22 04:53 Anion Gap 9.20 mmol/L (10.00-18.00) L 10/13/22 04:53 BUN 8.2 mg/dL (9.0-27.0) L 10/13/22 04:53 Creatinine 1.1 mg/dL (0.6-1.5) 10/13/22 04:53 Est GFR (CKD-EPI)AfAm 88.4 (60.0-200.0) 10/13/22 04:53 Est GFR (CKD-EPI)NonAf 76.2 (60.0-200.0) 10/13/22 04:53 BUN/Creatinine Ratio 7.45 Ratio (12.00-20.00) L 10/13/22 04:53 Glucose 94 mg/dL (70-110) 10/13/22 04:53 POC Glucose (mg/dL) 92 mg/dL (70-110) 10/13/22 11:25 POC Glu Certified Midwife ID Trisha Souza 10/13/22 11:25 Calcium 8.1 mg/dL (8.7-10.3) L 10/13/22 04:53 Total Bilirubin 0.90 mg/dL (0.30-1.20) 10/13/22 04:53 AST 23 U/L (14-35) 10/13/22 04:53 ALT 18 U/L (10-49) 10/13/22 04:53 Alkaline Phosphatase 96 U/L (41-126) 10/13/22 04:53 Total Protein 5.7 g/dL (6.2-8.2) L 10/13/22 04:53 Albumin 3.6 g/dL (3.8-4.9) L 10/13/22 04:53 Globulin 2.1 g/dL (1.6-3.3) 10/13/22 04:53 Albumin/Globulin Ratio 1.71 g/dL (1.60-3.17) 10/13/22 04:53 Serum Alcohol 407 mg/dL H* 10/11/22 19:36 IMPRESSIONS: Major depressive disorder, recurrent, moderate Unspecified anxiety disorder Alcohol use disorder, severe Alcohol withdrawal Tobacco use disorder/nicotine dependence PLAN: -Continue your medical management for alcohol withdrawal. CIWA protocol with Ativan PRN -At this time patient DOES NOT meet criteria for inpatient psychiatric admission. Patient is not presenting with imminent risk of harm to self or other s and is not endorsing any suicidal or homicidal ideation, intention, and/or plan. He reports beliefs against suicide and has supportive family. He has not prior attempts at suicide. Risk factors include his alcohol abuse, age, and gender demographic. -Would recommend the following medication changes/additions: Start Acamprosate 333 mg by mouth three times daily for alcohol cessation Effexor 225 mg by mouth daily for depression/anxiety/panic Remeron 15 mg by mouth daily at bedtime for depression/insomnia/appetite stimulation. -Supportive psychotherapy and motivational interview conducted during this psychiatric assessment for approximately 20 minutes -Recommend SW/Case management to provide patient with Access number for inpatient substance abuse rehabilitation. -Psychiatry will sign off at this point, please contact with any questions. 10/13/22 13:50
[2022-10-13] MEDS: VENLAFAXINE HCL ER 75 MG CAP PO SCH (13:59)
[2022-10-13] MEDS: VENLAFAXINE HCL ER 150 MG CAP PO SCH (13:59)
[2022-10-13 16:51] LABS: Glucose,Whole Blood 108 mg/dL (70-110)
[2022-10-13] MEDS: ACAMPROSATE CALCIUM 333 MG TABLET.DR PO SCH ×2 (17:45→21:42)
[2022-10-13 20:08] LABS: Glucose,Whole Blood 88 mg/dL (70-110)
[2022-10-13] MEDS: ATORVASTATIN 10 MG TAB PO SCH (21:42)
[2022-10-13] MEDS: MIRTAZAPINE 15 MG TAB PO SCH (21:42)
[2022-10-14] MEDS: SODIUM CHLORIDE 0.9% 1,000 ML IV SCH ×2 (00:49→02:36)
[2022-10-14] MEDS: LEVOTHYROXINE 137 MCG TAB PO SCH (05:56)
[2022-10-14 07:02] LABS: Glucose,Whole Blood 87 mg/dL (70-110)
[2022-10-14 07:45] VITALS: RESP 20
[2022-10-14] MEDS: ASPIRIN 325 MG TAB PO SCH (08:54)
[2022-10-14] MEDS: THIAMINE 100 MG TAB PO SCH (08:54)
[2022-10-14] MEDS: METOPROLOL SUCCINATE (ER) 25 MG TAB.ER.24H PO SCH (08:54)
[2022-10-14] MEDS: FAMOTIDINE 20 MG TAB PO SCH (08:54)
[2022-10-14] MEDS: FOLIC ACID 1 MG TAB PO SCH (08:54)
[2022-10-14] MEDS: amLODIPine 5 MG TAB PO SCH (08:54)
[2022-10-14] MEDS: LORATADINE 10 MG TAB PO SCH (08:54)
[2022-10-14] MEDS: VENLAFAXINE HCL ER 75 MG CAP PO SCH (08:54)
[2022-10-14] MEDS: ACAMPROSATE CALCIUM 333 MG TABLET.DR PO SCH (08:54)
[2022-10-14] MEDS: clonazePAM 1 MG TAB PO PRN (09:02)
[2022-10-14] MEDS: SYMBICORT 80-4.5 MCG INHALER INHALATION SCH (10:14)
[2022-10-14 11:25] LABS: Glucose,Whole Blood 88 mg/dL (70-110)
--- NOTE | 2022-10-14 11:39 | P.PN ---
Subjective Progress Note Date: 10/14/22 patient is a 52-year-old gentleman with past medical history significant for alcohol abuse, hypertension, hyperlipidemia, depression presents to the ER after being brought in by police for wellness check. Patient was only recently discharged after being treated for alcohol detox and depression. Patient was found living in his car, was intoxicated. Patient was crying and was very depressed. Patient is having social stressors with his fiance. Initial lab work in the ER showed patient to have us white count of 7, RBC of 5.12, hemoglobin 17, sodium 148, potassium 5.3, chloride 111, BUN 12, creatinine 0.84, alcohol level of 407. Patient was admitted for further evaluation and treatment 10/13. Patient seen and examined. States he feels better than yesterday. Patient was to go to inpatient alcohol rehab 10/14.. Patient seen and examined. Denies any auditory or visual hallucinations. Vital signs stable, blood pressure 145/85, heart rate of 68, respiratory rate of 20 REVIEW OF SYSTEMS: CONSTITUTIONAL: No fever, no malaise,. CARDIOVASCULAR: No chest pain, no palpitations, no syncope. PULMONARY: No shortness of breath, no cough, GASTROINTESTINAL: No diarrhea, no nausea, no vomiting, no abdominal pain. NEUROLOGICAL: No headaches, no weakness, PHYSICAL EXAMINATION: GENERAL: The patient is alert and oriented x3, not in any acute distress. Well developed, well nourished. HEENT: Pupils are round and equally reacting to light. EOMI. No scleral icterus. No conjunctival pallor. Normocephalic, atraumatic. No pharyngeal erythema. No thyromegaly. CARDIOVASCULAR: S1 and S2 present. No murmurs, rubs, or gallops. PULMONARY: Chest is clear to auscultation, no wheezing or crackles. ABDOMEN: Soft, nontender, nondistended, normoactive bowel sounds. No palpable organomegaly. MUSCULOSKELETAL: No joint swelling or deformity. EXTREMITIES: No cyanosis, clubbing, or pedal edema. NEUROLOGICAL: Gross neurological examination did not reveal any focal deficits. SKIN: No rashes. Assessment and plan Alcohol detox Depression Hypertension Hypothyroidism Hyperlipidemia History of [place] TIA Plan; Monitor vital signs Monitor CBC Monitor electrolytes. Continue thiamine and folic acid Continue CIWA protocol Psych Evaluated the patient recommended the following Continue Acamprosate 333 mg by mouth three times daily for alcohol cessation Effexor 225 mg by mouth daily for depression/anxiety/panic Remeron 15 mg by mouth daily at bedtime for depression/insomnia/appetite stimulation. Objective - Vital Signs Vital signs: Vital Signs Temp 97.4 F L 10/14/22 07:45 Pulse 68 10/14/22 07:45 Resp 20 10/14/22 07:45 BP 145/85 10/14/22 07:45 Pulse Ox 96 10/14/22 07:45 FiO2 Intake & Output 10/13/22 10/14/22 10/14/22 18:59 06:59 18:59 Intake Total 240 Balance 240 Intake: Intake, IV Titration 240 Amount Sodium Chloride 0.9% 1, 240 000 ml @ 20 mls/hr IV . Q24H [facility] Rx#:[id number] Other: Voiding Method Toilet Toilet Toilet # Voids 2 1 - Labs CBC & Chem 7: 10/13/22 04:53 10/13/22 04:53 Labs: Abnormal Lab Results - Last 24 Hours (Table) 10/13/22 Range/Units 04:53 Immature Gran # 0.05 H (0.00-0.04) X 10*3/uL Monocytes # 1.63 H (0.20-1.00) X 10*3/uL
[2022-10-14 12:11] VITALS: BP 140/80; PULSE 70; TEMP 98
--- NOTE | 2022-10-14 14:11 | P.DS ---
Providers Date of admission: 10/11/22 20:16 Expected date of discharge: 10/14/22 Attending physician: Calixto Louise MD Consults: 10/12/22 08:30 Consult Physician Routine Consulting Provider: Psychiatry - [facility] Psychiatry Consult Reason/Comments: depression Do you want consulting provider notified?: Yes Primary care physician: Murray Medeirosmley [facility] Course: Discharge diagnoses; Alcohol detox Depression Hypertension Hypothyroidism Hyperlipidemia History of DC TIA Hospital course; patient is a 52-year-old gentleman with past medical history significant for alcohol abuse, hypertension, hyperlipidemia, depression presents to the ER after being brought in by police for wellness check. Patient was only recently discharged after being treated for alcohol detox and depression. Patient was found living in his car, was intoxicated. Patient was crying and was very depressed. Patient is having social stressors with his fiance. Initial lab work in the ER showed patient to have us white count of 7, RBC of 5.12, hemoglobin 17, sodium 148, potassium 5.3, chloride 111, BUN 12, creatinine 0.84, alcohol level of 407. Patient was admitted for further evaluation and treatment 10/13. Patient seen and examined. States he feels better than yesterday. Patient was to go to inpatient alcohol rehab 10/14.. Patient seen and examined. Denies any auditory or visual hallucinations. Vital signs stable, blood pressure 145/85, heart rate of 68, respiratory rate of 20. Patient to follow-up outpatient with [facility], being discharged stable condition PHYSICAL EXAMINATION: GENERAL: The patient is alert and oriented x3, not in any acute distress. Well developed, well nourished. HEENT: Pupils are round and equally reacting to light. EOMI. No scleral icterus. No conjunctival pallor. Normocephalic, atraumatic. No pharyngeal erythema. No thyromegaly. CARDIOVASCULAR: S1 and S2 present. No murmurs, rubs, or gallops. PULMONARY: Chest is clear to auscultation, no wheezing or crackles. ABDOMEN: Soft, nontender, nondistended, normoactive bowel sounds. No palpable organomegaly. MUSCULOSKELETAL: No joint swelling or deformity. EXTREMITIES: No cyanosis, clubbing, or pedal edema. NEUROLOGICAL: Gross neurological examination did not reveal any focal deficits. SKIN: No rashes. Patient Condition at Discharge: Stable Plan - Discharge Summary Discharge Rx Participant: No New Discharge Prescriptions: New Acamprosate Calcium [Campral] 333 mg PO TID #21 tab Continue clonazePAM 1 mg PO BID PRN PRN Reason: Anxiety Cetirizine HCl 10 mg PO DAILY Ibuprofen [Motrin] 600 mg PO Q8HR PRN PRN Reason: Pain Or Fever > 100.5 Aspirin 325 mg PO DAILY #30 tab Amoxic-Pot Clav 875-125Mg [Augmentin 875-125] 1 tab PO BID 1 Days #14 tab Venlafaxine HCl ER [Effexor XR] 150 mg PO DAILY Simvastatin [Zocor] 20 mg PO HS Nitroglycerin Sl Tabs [Nitrostat] 0.4 mg SUBLINGUAL Q5M PRN PRN Reason: Chest Pain Albuterol Sulfate [Proair Hfa] 1 - 2 puff INHALATION RT-Q6H PRN PRN Reason: Shortness Of Breath Levothyroxine Sodium [Synthroid] 137 mcg PO DAILY Metoprolol Succinate (ER) [Toprol XL] 25 mg PO DAILY #1 amLODIPine [Norvasc] 5 mg PO DAILY Folic Acid 1 mg PO DAILY #30 tab Famotidine [Pepcid] 20 mg PO BID #60 tab Mirtazapine [Remeron] 15 mg PO HS #30 tab Thiamine [Vitamin B-1] 100 mg PO DAILY #30 tab traZODone HCL [Desyrel] 50 mg PO HS PRN #0 PRN Reason: Insomnia Budesonide/Formoterol Fumarate [Symbicort 80-4.5 Mcg Inhaler] 1 puff INHALATION RT-BID Venlafaxine HCl [Effexor XR] 75 mg PO DAILY Discharge Medication List Albuterol Sulfate [Proair Hfa] 1 - 2 puff INHALATION RT-Q6H PRN 07/08/22 [History] Levothyroxine Sodium [Synthroid] 137 mcg PO DAILY 07/08/22 [History] Nitroglycerin Sl Tabs [Nitrostat] 0.4 mg SUBLINGUAL Q5M PRN 07/08/22 [History] Simvastatin [Zocor] 20 mg PO HS 07/08/22 [History] clonazePAM 1 mg PO BID PRN 07/08/22 [History] Metoprolol Succinate (ER) [Toprol XL] 25 mg PO DAILY #1 07/11/22 [Rx] Cetirizine HCl 10 mg PO DAILY 12/18/22 [History] Ibuprofen [Motrin] 600 mg PO Q8HR PRN 09/14/22 [History] amLODIPine [Norvasc] 5 mg PO DAILY 09/14/22 [History] Amoxic-Pot Clav 875-125Mg [Augmentin 875-125] 1 tab PO BID 1 Days #14 tab 10/07/22 [Rx] Aspirin 325 mg PO DAILY #30 tab 10/07/22 [Rx] Famotidine [Pepcid] 20 mg PO BID #60 tab 10/07/22 [Rx] Folic Acid 1 mg PO DAILY #30 tab 10/07/22 [Rx] Mirtazapine [Remeron] 15 mg PO HS #30 tab 10/07/22 [Rx] Thiamine [Vitamin B-1] 100 mg PO DAILY #30 tab 10/07/22 [Rx] traZODone HCL [Desyrel] 50 mg PO HS PRN #0 10/07/22 [Rx] Budesonide/Formoterol Fumarate [Symbicort 80-4.5 Mcg Inhaler] 1 puff INHALATION RT-BID 10/11/22 [History] Venlafaxine HCl ER [Effexor XR] 150 mg PO DAILY 10/11/22 [History] Venlafaxine HCl [Effexor XR] 75 mg PO DAILY 10/11/22 [History] Acamprosate Calcium [Campral] 333 mg PO TID #21 tab 10/14/22 [Rx] Follow up Appointment(s)/Referral(s): Murray Olivares MD [Primary Care Provider] - 1-2 days Discharge/Stand Alone Forms: AA Meetings [facility], Who Do I Call?, Community Resources, Outpatient Counseling, In Substance Abuse Facilities
== END 2022-10-14 15:09 | disposition home or self-care (01) ==
LOC: EC 18:54 → 5NMEDONC 20:16
PROVIDERS: ADMIT Internal Medicine; ATTEND Internal Medicine
DX: F10.229 Alcohol dependence with intoxication, unspecified (principal); F10.239 Alcohol dependence with withdrawal, unspecified; Y90.8 Blood alcohol level of 240 mg/100 ml or more; F33.1 Major depressive disorder, recurrent, moderate; F41.9 Anxiety disorder, unspecified; I25.10 Atherosclerotic heart disease of native coronary artery without angina pectoris; I10 Essential (primary) hypertension; I25.2 Old myocardial infarction; E03.9 Hypothyroidism, unspecified; E78.5 Hyperlipidemia, unspecified; F17.290 Nicotine dependence, other tobacco product, uncomplicated; Z59.02 Unsheltered homelessness; Z86.73 Personal history of transient ischemic attack (TIA), and cerebral infarction without residual deficits; Z79.890 Hormone replacement therapy; Z79.899 Other long term (current) drug therapy; Z79.82 Long term (current) use of aspirin; Z79.51 Long term (current) use of inhaled steroids
CPT/HCPCS: 96361 ×2; 96376 ×3; 96372; 96374; 99285; 36415; 94640 ×4; 93005; 80053; 80048; 85025 ×2; G0378 ×4; G0480; J2060 ×3; J3411; 80320

== ENCOUNTER 2022-12-13 11:01 | Emergency (ER) | payer OTHER ==
[2022-12-13] MEDS ORDERED: SODIUM CHLORIDE 0.9% 1,000 ML IV STA (11:07)
[2022-12-13 12:35] VITALS: BP 134/97; TEMP 97.9
--- NOTE | 2022-12-13 12:35 | ED ---
Alcohol HPI - General Stated Complaint: shoulder pain, ETOH Time Seen by Provider: 12/13/22 11:07 - History of Present Illness Initial Comments: Patient is a 52-year-old male who presents to the emergency department for alcohol intoxication. EMS was called after a neighbor saw patient fall in the driveway while walking to his mailbox. He apparently did not lose consciousness or hit his head. He does not take blood thinners. Patient initially had left shoulder pain which he states resolved. Patient denies chest pain and shortness of breath. Patient actively trying to leave the emergency department. - Related Data Home Medications Medication Instructions Recorded Confirmed Famotidine [Pepcid] 20 mg PO BID PRN 11/24/22 11/28/22 Previous Rx's Medication Instructions Recorded Acamprosate Calcium [Campral] 666 mg PO TID 30 Days #90 tab 12/08/22 Acetaminophen Tab [Tylenol] 650 mg PO Q4HR PRN tab 12/08/22 Albuterol Inhaler [Ventolin Hfa 2 puff INHALATION RT-Q6H PRN 30 12/08/22 Inhaler] Days #1 each Aspirin 81 mg PO DAILY 30 Days #30 tab 12/08/22 Atorvastatin [Lipitor] 10 mg PO HS 30 Days #30 tab 12/08/22 Budesonide/Formoterol Fumarate 1 puff INHALATION RT-BID 30 Days 12/08/22 [Symbicort 80-4.5 Mcg Inhaler] #1 each Folic Acid 1 mg PO DAILY@1200 30 Days #30 tab 12/08/22 Levothyroxine Sodium [Synthroid] 137 mcg PO [address]30 30 Days #30 tab 12/08/22 Loratadine [Claritin] 10 mg PO DAILY PRN 30 Days #30 tab 12/08/22 Metoprolol Succinate (ER) [Toprol 50 mg PO DAILY 30 Days #30 tab 12/08/22 XL] Multivitamins, Thera [Multivitamin 1 each PO DAILY@1200 30 Days #30 12/08/22 (formulary)] tab Nicotine 14Mg/24Hr Patch [Habitrol] 1 patch TRANSDERM DAILY 30 Days #0 12/08/22 patch Nitroglycerin Sl Tabs [Nitrostat] 0.4 mg SUBLINGUAL Q5M PRN 30 Days 12/08/22 #10 tab Sulfamethox-Tmp 800-160Mg [Bactrim 1 each PO BID 4 Days #7 tab 12/08/22 DS 800-160 mg] Thiamine [Vitamin B-1] 100 mg PO DAILY 30 Days #30 tab 12/08/22 Venlafaxine HCl ER [Effexor XR] 225 mg PO DAILY 30 Days #90 cap 12/08/22 amLODIPine [Norvasc] 5 mg PO DAILY 30 Days #30 tab 12/08/22 traZODone HCL [Desyrel] 100 mg PO HS 30 Days #30 tab 12/08/22 Allergies Allergy/AdvReac Type Severity Reaction Status Date / Time promethazine HCl Allergy Unknown Verified 12/13/22 12:26 [From Phenergan] Childhood Review of Systems ROS Statement: Those systems with pertinent positive or pertinent negative responses have been documented in the HPI. ROS Other: All systems not noted in ROS Statement are negative. Past Medical History Past Medical History: Coronary Artery Disease (CAD), Hypertension, Myocardial Infarction (GA), Thyroid Disorder Additional Past Medical History / Comment(s): ETOH Last Myocardial Infarction Date:: 01/12/22 History of Any Multi-Drug Resistant Organisms: None Reported Past Surgical History: No Surgical Hx Reported Past Anesthesia/Blood Transfusion Reactions: No Reported Reaction Past Psychological History: Anxiety, Depression Smoking Status: Current every day smoker Past Alcohol Use History: Daily Past Drug Use History: None Reported General Exam General appearance: alert, appears intoxicated Eye exam: Present: normal appearance, PERRL, EOMI. Absent: scleral icterus, conjunctival injection, periorbital swelling Respiratory exam: Present: normal lung sounds bilaterally. Absent: respiratory distress, wheezes, rales, rhonchi, stridor Cardiovascular Exam: Present: regular rate, normal rhythm, normal heart sounds. Absent: systolic murmur, diastolic murmur, rubs, gallop, clicks Left Shoulder Exam: Present: normal inspection, full ROM. Absent: tenderness, swelling Upper Arm exam: Present: normal inspection, full ROM. Absent: tenderness, swelling Vascular: Present: normal capillary refill Neurological exam: Present: oriented X3, CN II-XII intact Psychiatric exam: Present: agitated Skin exam: Present: warm, dry, intact, normal color. Absent: rash Course Vital Signs 12/13/22 12/13/22 12/13/22 11:48 12:00 12:26 Temperature 97.9 F Pulse Rate 109 H 124 H 110 H Respiratory 20 20 16 Rate Blood Pressure 134/92 130/80 134/97 O2 Sat by Pulse 96 Oximetry 12/13/22 13:00 Temperature Pulse Rate 116 H Respiratory 18 Rate Blood Pressure 134/97 O2 Sat by Pulse Oximetry Medical Decision Making - Medical Decision Making Was pt. sent in by a medical professional or institution (PATRICIA Sosa, [employer], urgent care, hospital, or senior living...) When possible be specific @ -No Did you speak to anyone other than the patient for history (EMS, parent, family, police, friend...)? What history was obtained from this source @ -No Did you review nursing and triage notes (agree or disagree)? Why? @ -I reviewed and agree with nursing and triage notes Were old charts reviewed (outside hosp., previous admission, EMS record, old EKG, old radiological studies, urgent care reports/EKG's, senior living records)? Report findings @ -No old charts were reviewed Differential Diagnosis (chest pain, altered mental status, abdominal pain women, abdominal pain men, vaginal bleeding, weakness, fever, dyspnea, syncope, headache, dizziness, GI bleed, back pain, seizure, CVA, palpatations, mental health)? @Alcohol intoxication, drug overdose, alcohol withdrawal EKG interpreted by me (3pts min.). @ -As above X-rays interpreted by me (1pt min.). @ -None done CT interpreted by me (1pt min.). @ -None done U/S interpreted by me (1pt. min.). @ -None done What testing was considered but not performed or refused? (CT, X-rays, U/S, labs)? Why? @ -None What meds were considered but not given or refused? Why? @ -None Did you discuss the management of the patient with other professionals (professionals i.e. PATRICIA Sosa, [employer], lab, RT, psych nurse, social science professor, medical record librarians teacher, teacher, business liaison officer, supervisor case loading)? Give summary @ -No Was smoking cessation discussed for >3mins.? @ -No Was critical care preformed (if so, how long)? @ -No Were there social determinants of health that impacted care today? How? (Homelessness, low income, unemployed, alcoholism, drug addiction, transportation, low edu. Level, literacy, decrease access to med. care, retirement, rehab)? @ -No Was there de-escalation of care discussed even if they declined (Discuss DNR or withdrawal of care, Hospice)? DNR status @ -No What co-morbidities impacted this encounter? (DM, HTN, Smoking, COPD, CAD, Cancer, CVA, ARF, Chemo, Hep., AIDS, mental health diagnosis, sleep apnea, morbid obesity)? @ -None Was patient admitted / discharged? Hospital course, mention meds given and route, prescriptions, significant lab abnormalities, going to OR and other pertinent info. @Patient presenting for alcohol intoxication. Patient does appear intoxicated but is alert and oriented x 3. Alcohol is 0.173. Patient states he has no pain and would like to go home. He declines fluid bolus, laboratory studies and shoulder/head imaging says since his insurance will not cover it. Patient observed closely in the emergency department. He is educated on alcohol cessation. His family member did come to the emergency Department patient stable for discharge and left AMA with family. Undiagnosed new problem with uncertain prognosis? @ -No Drug Therapy requiring intensive monitoring for toxicity (Heparin, Nitro, Insulin, Cardizem)? @ -No Were any procedures done? @ -No Diagnosis/symptom? @ -Alcohol intoxication Acute, or Chronic, or Acute on Chronic? @ -Acute Uncomplicated (without systemic symptoms) or Complicated (systemic symptoms)? @ -Uncomplicated Side effects of treatment? @ -No Exacerbation, Progression, or Severe Exacerbation? @ -No Poses a threat to life or bodily function? How? (Chest pain, USA, GA, pneumonia, PE, COPD, DKA, ARF, appy, cholecystitis, CVA, Diverticulitis, Homicidal, Suicidal, threat to staff... and all critical care pts) @ -No Dr. Ahumada is my attending. - Lab Data Lab Results 12/13/22 Range/Units 12:37 Urine Color Light Yellow Urine Appearance Clear (Clear) Urine pH 5.5 (5.0-8.0) Ur Specific [place] 1.009 (1.001-1.035) Urine Protein Trace H (Negative) Urine Glucose (UA) Negative (Negative) Urine Ketones Negative (Negative) Urine Blood Negative (Negative) Urine Nitrite Negative (Negative) Urine Bilirubin Negative (Negative) Urine Urobilinogen <2.0 (<2.0) mg/dL Ur Leukocyte Esterase Negative (Negative) Urine Opiates Screen Not Detected (NotDetected) Ur Oxycodone Screen Not Detected (NotDetected) Urine Methadone Screen Not Detected (NotDetected) Ur Propoxyphene Screen Not Detected (NotDetected) Ur Barbiturates Screen Not Detected (NotDetected) U Tricyclic Antidepress Not Detected (NotDetected) Ur Phencyclidine Scrn Not Detected (NotDetected) Ur Amphetamines Screen Not Detected (NotDetected) U Methamphetamines Scrn Not Detected (NotDetected) U Benzodiazepines Scrn Not Detected (NotDetected) Urine Cocaine Screen Not Detected (NotDetected) U Marijuana (THC) Screen Not Detected (NotDetected) Disposition Clinical Impression: Alcohol intoxication Disposition: Left Against Medical Advice Condition: Stable Instructions (If sedation given, give patient instructions): Abuse of Alcohol (ED) Additional Instructions: It is important to stop drinking alcohol and cause lifelong repercussions. Follow-up with primary care provider in one to 2 days. Return to the emergency department experience new, concerning, or worsening symptoms. Is patient prescribed a controlled substance at d/c from ED?: No Referrals: Murray Olivares MD [REFERRING] - 1-2 days
[2022-12-13 13:11] LABS: Appearance,Urine Clear (Clear); Bilirubin,Urine Negative (Negative); Blood,Urine Negative (Negative); Color,Urine Light Yellow; Glucose,Urine (UA) Negative (Negative); Ketones,Urine Negative (Negative); Leukocyte Esterase,Urine Negative (Negative); Nitrite,Urine Negative (Negative); PH, Urine 5.5 (5.0-8.0); Protein,Urine Trace (Negative); Specific Gravity,Urine 1.009 (1.001-1.035); Urobilinogen,Urine <2.0 mg/dL (<2.0)
[2022-12-13 13:21] VITALS: PULSE 116; RESP 18
[2022-12-13 13:40] LABS: Amphetamine Screen,Urine Not Detected (NotDetected); Barbiturate Screen,Urine Not Detected (NotDetected); Benzodiazepines Screen,Urine Not Detected (NotDetected); Cocaine Screen,Urine Not Detected (NotDetected); Methadone Screen, Urine Not Detected (NotDetected); Opiate Screen,Urine Not Detected (NotDetected); Oxycodone Screen, Urine Not Detected (NotDetected); Phencyclidine Screen,Urine Not Detected (NotDetected); Tricyclic Antidepressant,Urine Not Detected (NotDetected); Urn Cannabinoid Scrn Not Detected (NotDetected)
== END 2022-12-13 14:29 | disposition left against medical advice (07) ==
LOC: EC 11:01 → SUPCPDRO 11:01 → EC 14:29
DX: F10.129 Alcohol abuse with intoxication, unspecified (principal); I10 Essential (primary) hypertension; I25.10 Atherosclerotic heart disease of native coronary artery without angina pectoris; I25.2 Old myocardial infarction; F17.200 Nicotine dependence, unspecified, uncomplicated; F41.9 Anxiety disorder, unspecified; F32.A Depression, unspecified; Z88.8 Allergy status to other drugs, medicaments and biological substances; Z53.29 Procedure and treatment not carried out because of patient's decision for other reasons
CPT/HCPCS: 80306; 81003; 99284

== ENCOUNTER 2023-04-22 19:08 | Inpatient (IN) | payer OTHER ==
[2023-04-22 19:39] LABS: Glucose,Whole Blood 103 mg/dL (70-110)
--- NOTE | 2023-04-22 20:05 | ED ---
General Adult HPI - General Chief complaint: Fall Stated complaint: fall Time Seen by Provider: 04/22/23 19:19 Source: patient, EMS Mode of arrival: EMS Limitations: altered mental status - History of Present Illness Initial comments: Zeke is a pleasant 52 yo male with history of alcohol abuse is brought to the ER today by ambulance for altered mental status after being found down in his apartment. History was provided by EMS as the patient was not a reliable historian. EMS reports that the patient's landlord had not seen him in a couple of days and went to check on him and found him laying on his kitchen floor soiled with urine and very dirty. She called EMS for transfer. Landlord advised EMS that she had not bought him any alcohol for a week and that he had not left the house she doesn't believe he's had any other visitors so he may be in withdrawal as he is a heavy drinker. Patient is oriented to self only cannot identify where he is or what year it is. He told me he had not drank in 2 years and that he lay down because he was ti red and that he only been laying down for couple of hours he cannot explain why he was wearing 3 appears under. JOCELYN-2. The parents why he had urinated on himself. He states he is not going to stay in the hospital he has an 11-year-old daughter at home to take care of. EMS confirms this is not a true statement. - Related Data Home Medications Medication Instructions Recorded Confirmed Cetirizine HCl 10 mg PO DAILY 04/22/23 04/22/23 DULoxetine HCL [Cymbalta] 30 mg PO DAILY 04/22/23 04/22/23 DULoxetine HCL [Cymbalta] 60 mg PO DAILY 04/22/23 04/22/23 Folic Acid 1 mg PO DAILY 04/22/23 04/22/23 Gabapentin [Neurontin] 300 mg PO DAILY@1200 04/22/23 04/22/23 Gabapentin [Neurontin] 600 mg PO BID 04/22/23 04/22/23 Levothyroxine Sodium [Synthroid] 137 mcg PO DAILY 04/22/23 04/22/23 Multivitamin With Folic Acid 400 1 tab PO DAILY 04/22/23 04/22/23 Mcg Tab QUEtiapine [SEROquel] 25 mg PO BID PRN 04/22/23 04/22/23 traZODone HCL [Desyrel] 50 mg PO HS 04/22/23 04/22/23 Previous Rx's Medication Instructions Recorded Albuterol Inhaler [Ventolin Hfa 2 puff INHALATION RT-Q6H PRN 30 12/08/22 Inhaler] Days #1 each Budesonide/Formoterol Fumarate 1 puff INHALATION RT-BID 30 Days 12/08/22 [Symbicort 80-4.5 Mcg Inhaler] #1 each Metoprolol Succinate (ER) [Toprol 50 mg PO DAILY 30 Days #30 tab 12/08/22 XL] Nitroglycerin Sl Tabs [Nitrostat] 0.4 mg SUBLINGUAL Q5M PRN 30 Days 12/08/22 #10 tab Thiamine [Vitamin B-1] 100 mg PO DAILY 30 Days #30 tab 12/08/22 Allergies Allergy/AdvReac Type Severity Reaction Status Date / Time promethazine HCl Allergy Unknown Verified 04/22/23 20:41 [From Phenergan] Childhood Review of Systems ROS Statement: Those systems with pertinent positive or pertinent negative responses have been documented in the HPI. ROS Other: All systems not noted in ROS Statement are negative. Past Medical History Past Medical History: Coronary Artery Disease (CAD), Hypertension, Myocardial Infarction ([place]), Thyroid Disorder Additional Past Medical History / Comment(s): ETOH Last Myocardial Infarction Date:: 01/12/22 History of Any Multi-Drug Resistant Organisms: None Reported Past Surgical History: No Surgical Hx Reported Past Anesthesia/Blood Transfusion Reactions: No Reported Reaction Past Psychological History: Anxiety, Depression Smoking Status: Current every day smoker Past Alcohol Use History: Daily Past Drug Use History: None Reported General Exam - General Exam Comments Initial Comments: Physical Exam GENERAL: Chronically ill-appearing, diaphoretic HENT: Abrasion to the nose EYES: PERRL, EOMI PULMONARY: Unlabored respirations. No audible rales rhonchi or wheezing was noted. CARDIOVASCULAR: Tachycardic, regular ABDOMEN: Soft and nontender with normal bowel sounds. SKIN: There is bruises in multiple stages of healing over his arms, abdomen, ribs There are what appear to be a stage I pressure ulcers on his anterior inferior ribs likely from laying on the ground for prolonged period of time : Deferred NEUROLOGIC: Oriented to self Seems to be confabulating MUSCULOSKELETAL: Generalized atrophy PSYCHIATRIC: Confused, not suicidal homicidal Limitations: altered mental status Course Vital Signs 04/22/23 19:46 Temperature 98.2 F Pulse Rate 103 H Respiratory 22 Rate Blood Pressure 142/98 O2 Sat by Pulse 94 L Oximetry EKG Findings - EKG Comments: EKG Findings:: EKG interpreted by me, EKG was obtained due to tachycardia, EKG was obtained at 1952 rate is 104 rhythm is a narrow complex regular tachycardia with P waves before each QRS is sinus tachycardia there are no acute ST elevations or depressions no evidence of ischemia or infarction. Medical Decision Making - Medical Decision Making The patient was seen and evaluated history is obtained from EMS as the patient was not a reliable historian patient seems to be confabulating A feel the patient's been on the ground for a number of days likely not eating or drinking. Labs and head CT were ordered. Head CT with no acute findings no traumatic findings. Labs consistent with acute rhabdomyolysis. IV fluids were ordered, Pina catheter was placed for monitoring of urine output. Patient will be admitted for rhabdomyolysis, concern for alcohol withdrawal, possible Wernick's encephalopathy Was pt. sent in by a medical professional or institution (, PA, PRESSURE TESTER OPERATOR, urgent care, hospital, or assisted...) When possible be specific @ -No Did you speak to anyone other than the patient for history (EMS, parent, family, police, friend...)? What history was obtained from this source @ -EMS Did you review nursing and triage notes (agree or disagree)? Why? @ -I reviewed and agree with nursing and triage notes Were old charts reviewed (outside hosp., previous admission, EMS record, old EKG, old radiological studies, urgent care reports/EKG's, assisted records)? Report findings @ -Previous admissions were reviewed Differential Diagnosis (chest pain, altered mental status, abdominal pain women, abdominal pain men, vaginal bleeding, weakness, fever, dyspnea, syncope, headache, dizziness, GI bleed, back pain, seizure, CVA, palpatations, mental health, musculoskeletal)? @ -Differential Altered Mental Status: Hypoglycemia, DKA, hypercapnia, ETOH, overdose, CO poisoning, trauma, myxedema coma, HTN encephalopathy, infection, encephalitis, psychosis, intercranial hemorrhage, hepatic encephalopathy, meningitis, CVA, this is not meant to be an all-inclusive list EKG interpreted by me (3pts min.). @ -As above X-rays interpreted by me (1pt min.). @ -None done CT interpreted by me (1pt min.). @ -None done U/S interpreted by me (1pt. min.). @ -None done What testing was considered but not performed or refused? (CT, X-rays, U/S, labs)? Why? @ -None What meds were considered but not given or refused? Why? @ -None Did you discuss the management of the patient with other professionals (professionals i.e. DrCarrie, PA, PRESSURE TESTER OPERATOR, lab, RT, psych nurse, social worker assistant, intellectual property lawyer, teacher, veterinary medical officer, dependency case manager)? Give summary @ -Yes, admitting physician Was smoking cessation discussed for >3mins.? @ -No Was critical care preformed (if so, how long)? @ -No Were there social determinants of health that impacted care today? How? (Homelessness, low income, unemployed, alcoholism, drug addiction, transportation, low edu. Level, literacy, decrease access to med. care, fdc, rehab)? @ -Alcoholism Was there de-escalation of care discussed even if they declined (Discuss DNR or withdrawal of care, Hospice)? DNR status @ -No What co-morbidities impacted this encounter? (DM, HTN, Smoking, COPD, CAD, Cancer, CVA, ARF, Chemo, Hep., AIDS, mental health diagnosis, sleep apnea, morbid obesity)? @ -None Was patient admitted / discharged? Hospital course, mention meds given and route, prescriptions, significant lab abnormalities, going to OR and other pertinent info. @ -Admitted for rhabdomyolysis with a creatinine kinase greater than 18,000, treated with normal saline bolus and IV fluids Undiagnosed new problem with uncertain prognosis? @ -YES Drug Therapy requiring intensive monitoring for toxicity (Heparin, Nitro, Insulin, Cardizem)? @ -No Were any procedures done? @ -No Diagnosis/symptom? @ -Rhabdomyolysis Acute, or Chronic, or Acute on Chronic? @ -Acute Uncomplicated (without systemic symptoms) or Complicated (systemic symptoms)? @ -Complicated Side effects of treatment? @ -No Exacerbation, Progression, or Severe Exacerbation? @ -No Poses a threat to life or bodily function? How? (Chest pain, [place], [place], pneumonia, PE, COPD, DKA, ARF, appy, cholecystitis, CVA, Diverticulitis, Homicidal, Suicidal, threat to staff... and all critical care pts) @ -Yes, can result in kidney failure - Lab Data Result diagrams: 04/22/23 19:46 04/22/23 19:46 Lab Results 04/22/23 04/22/23 04/22/23 Range/Units 19:37 19:46 19:46 WBC 17.8 H (3.8-10.6) k/uL RBC 4.52 (4.30-5.90) m/uL Hgb 15.0 (13.0-17.5) gm/dL Hct 45.5 (39.0-53.0) % MCV 100.6 H (80.0-100.0) fL MCH 33.2 (25.0-35.0) pg MCHC 33.1 (31.0-37.0) g/dL RDW 13.6 (11.5-15.5) % Plt Count 327 (150-450) k/uL MPV 7.8 Neutrophils % 86 % Lymphocytes % 6 % Monocytes % 7 % Eosinophils % 1 % Basophils % 0 % Neutrophils # 15.3 H (1.3-7.7) k/uL Lymphocytes # 1.0 (1.0-4.8) k/uL Monocytes # 1.2 H (0-1.0) k/uL Eosinophils # 0.1 (0-0.7) k/uL Basophils # 0.0 (0-0.2) k/uL Macrocytosis Slight PT 10.3 (9.0-12.0) sec INR 1.0 (<1.2) APTT 21.4 L (22.0-30.0) sec Sodium (137-145) mmol/L Potassium (3.5-5.1) mmol/L Chloride (98-107) mmol/L Carbon Dioxide (22-30) mmol/L Anion Gap mmol/L BUN (9-20) mg/dL Creatinine (0.66-1.25) mg/dL Est GFR (CKD-EPI)AfAm (>60 ml/min/1.73 sqM) Est GFR (CKD-EPI)NonAf (>60 ml/min/1.73 sqM) Glucose (74-99) mg/dL POC Glucose (mg/dL) 103 (70-110) mg/dL POC Glu [employer] ID Bhavya Mcdonald Plasma Lactic Acid [place] (0.7-2.0) mmol/L Calcium (8.4-10.2) mg/dL Total Bilirubin (0.2-1.3) mg/dL AST (17-59) U/L ALT (4-49) U/L Alkaline Phosphatase (38-126) U/L Ammonia (<30) umol/L Creatine Kinase (55-170) U/L Troponin I (0.000-0.034) ng/mL Total Protein (6.3-8.2) g/dL Albumin (3.5-5.0) g/dL Serum Alcohol mg/dL 04/22/23 04/22/23 04/22/23 Range/Units 19:46 19:46 19:46 WBC (3.8-10.6) k/uL RBC (4.30-5.90) m/uL Hgb (13.0-17.5) gm/dL Hct (39.0-53.0) % MCV (80.0-100.0) fL MCH (25.0-35.0) pg MCHC (31.0-37.0) g/dL RDW (11.5-15.5) % Plt Count (150-450) k/uL MPV Neutrophils % % Lymphocytes % % Monocytes % % Eosinophils % % Basophils % % Neutrophils # (1.3-7.7) k/uL Lymphocytes # (1.0-4.8) k/uL Monocytes # (0-1.0) k/uL Eosinophils # (0-0.7) k/uL Basophils # (0-0.2) k/uL Macrocytosis PT (9.0-12.0) sec INR (<1.2) APTT (22.0-30.0) sec Sodium 142 (137-145) mmol/L Potassium 4.2 (3.5-5.1) mmol/L Chloride 109 H (98-107) mmol/L Carbon Dioxide 21 L (22-30) mmol/L Anion Gap 12 mmol/L BUN 19 (9-20) mg/dL Creatinine 0.75 (0.66-1.25) mg/dL Est GFR (CKD-EPI)AfAm >90 (>60 ml/min/1.73 sqM) Est GFR (CKD-EPI)NonAf >90 (>60 ml/min/1.73 sqM) Glucose 94 (74-99) mg/dL POC Glucose (mg/dL) (70-110) mg/dL POC Glu [employer] ID Plasma Lactic Acid [place] 1.5 (0.7-2.0) mmol/L Calcium 8.8 (8.4-10.2) mg/dL Total Bilirubin 1.0 (0.2-1.3) mg/dL AST 213 H (17-59) U/L ALT 35 (4-49) U/L Alkaline Phosphatase 110 (38-126) U/L Ammonia 16 (<30) umol/L Creatine Kinase 11409 H* (55-170) U/L Troponin I <0.012 (0.000-0.034) ng/mL Total Protein 6.8 (6.3-8.2) g/dL Albumin 3.6 (3.5-5.0) g/dL Serum Alcohol <10 mg/dL Disposition Clinical Impression: Rhabdomyolysis, Alcohol abuse, Altered mental status Disposition: ADMITTED IP TO THIS HOSP Condition: Critical Is patient prescribed a controlled substance at d/c from ED?: No Referrals: Nonstaff,Physician [Primary Care Provider] - 1-2 days
[2023-04-22 20:11] LABS: Basophils % (A) 0 %; Eosinophils # (A) 0.1 k/uL (0-0.7); Eosinophils % (A) 1 %; HCT 45.5 % (39.0-53.0); Lymphocytes % (A) 6 %; MCH 33.2 pg (25.0-35.0); MCHC 33.1 g/dL (31.0-37.0); MCV 100.6 fL (80.0-100.0); Macrocytosis Slight; Mean Platelet Volume 7.8; Monocytes # (A) 1.2 k/uL (0-1.0); Monocytes % (A) 7 %; Neutrophils # (A) 15.3 k/uL (1.3-7.7); Neutrophils % (A) 86 %; Platelet Count 327 k/uL (150-450); RBC 4.52 m/uL (4.30-5.90); RDW 13.6 % (11.5-15.5); WBC 17.8 k/uL (3.8-10.6)
[2023-04-22 20:40] LABS: ALT 35 U/L (4-49); AST 213 U/L (17-59); African American GFR (CKD) >90 (>60 ml/min/1.73 sqM); Albumin 3.6 g/dL (3.5-5.0); Alcohol <10 mg/dL; Alkaline Phosphatase 110 U/L (38-126); Anion Gap 12 mmol/L; Blood Urea Nitrogen 19 mg/dL (9-20); Calcium 8.8 mg/dL (8.4-10.2); Carbon Dioxide 21 mmol/L (22-30); Chloride 109 mmol/L (98-107); Glucose 94 mg/dL (74-99); Non-African American GFR(CKD) >90 (>60 ml/min/1.73 sqM); Sodium 142 mmol/L (137-145); Total Protein 6.8 g/dL (6.3-8.2)
[2023-04-22 20:54] LABS: Partial Thromboplastin Time 21.4 sec (22.0-30.0); Prothrombin Time 10.3 sec (9.0-12.0)
[2023-04-22 20:55] LABS: Lactic Acid, Venous 1.5 mmol/L (0.7-2.0); Potassium 4.2 mmol/L (3.5-5.1)
--- NOTE | 2023-04-22 21:04 | CT ---
EXAMINATION TYPE: CT brain wo con DATE OF EXAM: 04/22/2023 COMPARISON: 10/04/2022 INDICATION: fall DLP: 1202.4 mGycm, Automated exposure control for dose reduction was used. CONTRAST: None CT of the brain is performed utilizing 3 mm thick sections through the posterior fossa and 3 mm thick sections through the remaining calvarium. Study is performed within 24 hours of arrival to the hosp ital. No abnormal hyperdensity is present to suggest an acute intracranial hemorrhage. No mass lesion is evident. No acute infarcts are evident. Ventricles and sulci are appropriate for the patient age. Paranasal sinuses and mastoid air cells within the [id number] are clear. These have cleared from c omparison. IMPRESSIONS: 1. No acute intracranial process. Follow-up MRI can be performed as clinically indicated.
--- NOTE | 2023-04-22 21:43 | XR ---
EXAMINATION TYPE: XR chest 2V DATE OF EXAM: 04/22/2023 COMPARISON: 11/24/2022 INDICATION: Fall TECHNIQUE: Frontal and lateral views of the chest are obtained. FINDINGS: The heart size is normal. The pulmonary vasculature is normal. There is mild increased infiltrate at the left base. Correlate for pneumonia or aspiration pneumonia. Pulmonary contusion could be considered. Follow-up can be performed. Stable nodules at the left apex . No pneumothorax is evident. IMPRESSION: 1. Mild infiltrate at the left base. Correlate for pneumonia, aspiration pneumonia, or pulmonary cont usion. Follow-up is recommended
[2023-04-22 22:22] LABS: Creatine Kinase 18182 U/L (55-170)
[2023-04-22] MEDS: SODIUM CHLORIDE 0.9% 2,000 ML IV ONE ×2 (22:33→22:41)
[2023-04-22] MEDS: SODIUM CHLORIDE 0.9% 1,000 ML IV SCH (22:41)
[2023-04-22] MEDS ORDERED: NALOXONE 0.4 MG/ML 1 ML VIAL IV PRN (22:44)
[2023-04-22] MEDS ORDERED: ONDANSETRON 4 MG/2 ML VIAL IVP PRN (22:44)
[2023-04-22] MEDS ORDERED: oxyCODONE-APAP 5-325MG 1 EACH TAB PO PRN (22:44)
[2023-04-22] MEDS ORDERED: THIAMINE 100 MG/ML 2 ML VIAL IM STA (22:49)
[2023-04-23] MEDS ORDERED: LORazepam 0.5 MG TAB PO PRN (01:05)
[2023-04-23] MEDS ORDERED: LORazepam 1 MG TAB PO PRN (01:05)
[2023-04-23] MEDS ORDERED: LORazepam 2 MG/ML INJ IV PRN (01:05)
[2023-04-23] MEDS: LORazepam 2 MG/ML INJ IV PRN ×8 (01:23→22:44)
--- NOTE | 2023-04-23 01:43 | P.HPIM ---
History of Present Illness H&P Date: 04/22/23 Chief Complaint: AMS 52 year old male alcohol dependance he was brought in by EMS, confused , disheveled soaked with urine, report by EMS mentions his landlord checked on him after few days of not seeing him and not bringing him alcohol. found him on the floor unresponsive .she believes he was going through alcohol withdrawal. patient does not recall what happened, his nose seems to have pressure ulcer , he claims he fell on his face, he claims he has not had an alcoholic drink in 2 years. patient is confused and unable to provide a reliable history , no familiy available at this time Review of Systems Pertinent positives as noted in HPI. All other systems were reviewed and are negative Past Medical History Past Medical History: Coronary Artery Disease (CAD), Hypertension, Myocardial Infarction ([place]), Thyroid Disorder Additional Past Medical History / Comment(s): ETOH Last Myocardial Infarction Date:: 01/12/22 History of Any Multi-Drug Resistant Organisms: None Reported Past Surgical History: No Surgical Hx Reported Past Anesthesia/Blood Transfusion Reactions: No Reported Reaction Past Psychological History: Anxiety, Depression Smoking Status: Current every day smoker Past Alcohol Use History: Daily Past Drug Use History: None Reported Medications and Allergies Home Medications Medication Instructions Recorded Confirmed Type Albuterol Inhaler [Ventolin Hfa 2 puff INHALATION RT-Q6H PRN 30 12/08/22 Rx Inhaler] Days #1 each Budesonide/Formoterol Fumarate 1 puff INHALATION RT-BID 30 Days 12/08/22 04/22/23 Rx [Symbicort 80-4.5 Mcg Inhaler] #1 each Metoprolol Succinate (ER) [Toprol 50 mg PO DAILY 30 Days #30 tab 12/08/22 04/22/23 Rx XL] Nitroglycerin Sl Tabs [Nitrostat] 0.4 mg SUBLINGUAL Q5M PRN 30 Days 12/08/22 04/22/23 Rx #10 tab Thiamine [Vitamin B-1] 100 mg PO DAILY 30 Days #30 tab 12/08/22 04/22/23 Rx Cetirizine HCl 10 mg PO DAILY 04/22/23 04/22/23 History DULoxetine HCL [Cymbalta] 30 mg PO DAILY 04/22/23 04/22/23 History DULoxetine HCL [Cymbalta] 60 mg PO DAILY 04/22/23 04/22/23 History Folic Acid 1 mg PO DAILY 04/22/23 04/22/23 History Gabapentin [Neurontin] 300 mg PO DAILY@1200 04/22/23 04/22/23 History Gabapentin [Neurontin] 600 mg PO BID 04/22/23 04/22/23 History Levothyroxine Sodium [Synthroid] 137 mcg PO DAILY 04/22/23 04/22/23 History Multivitamin With Folic Acid 400 1 tab PO DAILY 04/22/23 04/22/23 History Mcg Tab QUEtiapine [SEROquel] 25 mg PO BID PRN 04/22/23 04/22/23 History traZODone HCL [Desyrel] 50 mg PO HS 04/22/23 04/22/23 History Allergies Allergy/AdvReac Type Severity Reaction Status Date / Time promethazine HCl Allergy Unknown Verified 04/22/23 20:41 [From Phenergan] Childhood Physical Exam Vitals: Vital Signs Temp Pulse Resp BP Pulse Ox 04/22/23 19:46 98.2 F 103 H 22 142/98 94 L Intake and Output 04/22/23 04/22/23 04/22/23 06:59 14:59 22:59 Other: Weight 81.647 kg Constitutional: No acute distress, confused, disheveled Eyes: Anicteric sclerae, moist conjunctiva, Pupils equal round reactive to light ENMT: NC/AT, tip of the nose with crustation and superficial abrasion Oropharynx clear, no erythema, or exudates, no evidence of tongue biting Neck: Supple, no masses, or JVD No carotid bruits No thyromegaly Lungs: Clear to auscultation Clear to percussion Normal respiratory effort, no accessory muscle use Cardiovascular: Heart regular in rate and rhythm, No murmurs, gallops, or rubs No peripheral edema Abdominal: Soft Nontender, no guarding, rebound or rigidity Abdomen moving with respiration Normoactive bowel sounds No hepatomegaly, No splenomegaly No palpable mass No abdominal wall hernia noted Extremities: No digital cyanosis No clubbing Pedal pulses intact and symmetrical Radial pulses intact and symmetrical No calf tenderness Psychiatric: Alert and oriented to person, place Neuro Muscles Strength 5/5 in all 4 extremities Sensation to light touch grossly present throughout Cranial nerves II-XII grossly intact Lymphatics: no palpable cervical or supraclavicular lymph nodes Results CBC & Chem 7: 04/22/23 19:46 04/22/23 19:46 Labs: Abnormal Lab Results - Last 24 Hours (Table) 04/22/23 04/22/23 04/22/23 Range/Units 19:46 19:46 19:46 WBC 17.8 H (3.8-10.6) k/uL MCV 100.6 H (80.0-100.0) fL Neutrophils # 15.3 H (1.3-7.7) k/uL Monocytes # 1.2 H (0-1.0) k/uL APTT 21.4 L (22.0-30.0) sec Chloride 109 H (98-107) mmol/L Carbon Dioxide 21 L (22-30) mmol/L AST 213 H (17-59) U/L Creatine Kinase 07466 H* (55-170) U/L Assessment and Plan Assessment: 52 year old male with alcohol abuse , coming in after being found down and confused. I discussed the case with ED doc and I accepted the admission for acute rhabdo and alcohol withdrawals with anticipated length of stay > 2 midnights acute rhabdomyolysis alcohol dependance with withdrawal aggressive IVF hydration with normal saline boluses 2 L then followed by 200 cc per hour withdrawal precautions , benzo per ciwa fall and seizure precautions thiamine po daily monitor vital signs monitor renal function and urineoutput renal fucntion unremarkable K 4.2 ,na 142, Cr 0.[address] no acute pathology possible aspiration CXRshowed left lower lobe infilterates check blood cultures rocephine 2 gm IVPB daily leukocytosis 17.8 hgb 15 unremarkable full code DVT PPX mechanical
[2023-04-23 02:00] LABS: Amphetamine Screen,Urine Not Detected (NotDetected); Barbiturate Screen,Urine Not Detected (NotDetected); Benzodiazepines Screen,Urine Not Detected (NotDetected); Cocaine Screen,Urine Not Detected (NotDetected); Methadone Screen, Urine Not Detected (NotDetected); Opiate Screen,Urine Not Detected (NotDetected); Oxycodone Screen, Urine Not Detected (NotDetected); Phencyclidine Screen,Urine Not Detected (NotDetected); Tricyclic Antidepressant,Urine Not Detected (NotDetected); Urn Cannabinoid Scrn Detected (NotDetected)
[2023-04-23] MEDS: SODIUM CHLORIDE 0.9% 1,000 ML IV SCH ×3 (03:32→20:11)
[2023-04-23] MEDS: LEVOTHYROXINE 137 MCG TAB PO SCH (06:07)
[2023-04-23 06:51] LABS: Glucose,Whole Blood 99 mg/dL (70-110)
[2023-04-23] MEDS: SYMBICORT 80-4.5 MCG INHALER INHALATION SCH ×2 (08:22→19:16)
[2023-04-23 08:40] LABS: ALT 35 U/L (4-49); AST 165 U/L (17-59); African American GFR (CKD) >90 (>60 ml/min/1.73 sqM); Albumin 3.2 g/dL (3.5-5.0); Alkaline Phosphatase 92 U/L (38-126); Anion Gap 7 mmol/L; Blood Urea Nitrogen 14 mg/dL (9-20); Calcium 8.1 mg/dL (8.4-10.2); Carbon Dioxide 21 mmol/L (22-30); Chloride 109 mmol/L (98-107); Glucose 116 mg/dL (74-99); Magnesium 1.8 mg/dL (1.6-2.3); Non-African American GFR(CKD) >90 (>60 ml/min/1.73 sqM); Potassium 3.2 mmol/L (3.5-5.1); Sodium 137 mmol/L (137-145); Total Bilirubin 0.7 mg/dL (0.2-1.3)
[2023-04-23 08:49] LABS: Basophils # (A) 0.1 k/uL (0-0.2); Basophils % (A) 0 %; Eosinophils # (A) 0.1 k/uL (0-0.7); Eosinophils % (A) 1 %; HCT 41.3 % (39.0-53.0); HGB 13.8 gm/dL (13.0-17.5); Lymphocytes # (A) 1.1 k/uL (1.0-4.8); Lymphocytes % (A) 8 %; MCH 33.9 pg (25.0-35.0); MCHC 33.5 g/dL (31.0-37.0); MCV 101.2 fL (80.0-100.0); Macrocytosis Slight; Monocytes # (A) 1.1 k/uL (0-1.0); Monocytes % (A) 8 %; Neutrophils # (A) 11.4 k/uL (1.3-7.7); Neutrophils % (A) 81 %; Platelet Count 272 k/uL (150-450); RBC 4.08 m/uL (4.30-5.90); RDW 13.7 % (11.5-15.5)
[2023-04-23] MEDS ORDERED: FOLIC ACID 1 MG TAB PO SCH (09:00)
[2023-04-23] MEDS: MULTIVITAMINS, THERA 1 EACH TAB PO SCH (09:24)
[2023-04-23] MEDS: FOLIC ACID 1 MG TAB PO SCH (09:24)
[2023-04-23] MEDS: METOPROLOL SUCCINATE (ER) 50 MG TAB.ER.24H PO SCH (09:24)
[2023-04-23] MEDS: THIAMINE 100 MG TAB PO SCH (09:24)
[2023-04-23 11:24] LABS: Glucose,Whole Blood 93 mg/dL (70-110)
[2023-04-23] MEDS ORDERED: POTASSIUM CHLORIDE ER 20 MEQ TAB.ER PO STA (15:06)
--- NOTE | 2023-04-23 15:08 | P.PN ---
Subjective Progress Note Date: 04/23/23 Hospital Course: 52-year-old male with history of alcohol dependence, hypothyroidism, COPD presenting with rhabdomyolysis. Patient was initially tachycardic to 103, normal blood pressure, saturating well on room air. Laboratory workup showed WBC of 17.8, bicarb 21, anion gap 12, creatinine 0.75, CK 18,000. Patient was started on IV fluids. There is also concern for possible alcohol withdrawal. Patient also started on IV Ativan as needed. Chest x-ray concerning for mild infiltrate at left base, possible aspiration. Started on IV antibiotics. Subjective: seen and examined at bedside. No acute events overnight. Claims that he does not drink anymore. Denies any new complaints. No muscle pain. Pertinent positives and negatives as discussed above, a complete review of systems was performed and all other systems are negative. Vitals Signs Reviewed. General: nontoxic, no distress, appears at stated age, disheveled Derm: warm, dry Head: atraumatic, normocephalic, symmetric Eyes: EOMI, no lid lag, anicteric sclera Mouth: no lip lesion, mucus membranes moist Cardiovascular: S1S2 reg, no murmur Lungs: CTA bilateral, no rhonchi, no rales , no accessory muscle use Abdominal: soft, nontender to palpation, no guarding, no appreciable organomegaly Ext: no gross muscle atrophy, no edema, no contractures Neuro: CN II-XI grossly intact, no focal neuro deficits, resting tremor Psych: Alert, oriented, appropriate affect Data Reviewed Today: Pertinent Labs: WBC 14, hemoglobin 13.8, potassium 3.2, bicarb 21, CK 11,000 Imaging: No new imaging Assessment and Plan: Active: Acute rhabdomyolysis Alcohol dependence with suspected withdrawal Suspected aspiration pneumonia Leukocytosis Hypokalemia -Continue normal saline at 200 mL an hour -CK down trending -Continue to monitor renal function -On CIWA protocol with IV Ativan as needed -Thiamine and folic acid -On ceftriaxone IV -Cultures pending -Oral potassium 20 mEq ordered Resolved: Chronic: COPD without exacerbation Depression Hypothyroidism DVT ppx: Subcu heparin Code status: Full code Anticipated discharge place: Pending clinical course Anticipated discharge time: Pending clinical course Objective - Vital Signs Vital signs: Vital Signs Temp 98.9 F 04/23/23 07:10 Pulse 107 H 04/23/23 07:41 Resp 18 04/23/23 07:41 BP 160/88 04/23/23 07:10 Pulse Ox 91 L 04/23/23 07:10 FiO2 Intake & Output 04/22/23 04/23/23 04/23/23 18:59 06:59 18:59 Weight 81.647 kg Other: Voiding Method Indwelling Catheter # Bowel Movements 2 - Labs CBC & Chem 7: 04/23/23 07:43 04/23/23 07:43 Labs: Abnormal Lab Results - Last 24 Hours (Table) 04/22/23 04/22/23 04/22/23 Range/Units 19:46 19:46 19:46 WBC 17.8 H (3.8-10.6) k/uL RBC (4.30-5.90) m/uL MCV 100.6 H (80.0-100.0) fL Neutrophils # 15.3 H (1.3-7.7) k/uL Monocytes # 1.2 H (0-1.0) k/uL APTT 21.4 L (22.0-30.0) sec Potassium (3.5-5.1) mmol/L Chloride 109 H (98-107) mmol/L Carbon Dioxide 21 L (22-30) mmol/L Glucose (74-99) mg/dL Calcium (8.4-10.2) mg/dL AST 213 H (17-59) U/L Creatine Kinase 82587 H* (55-170) U/L Total Protein (6.3-8.2) g/dL Albumin (3.5-5.0) g/dL U Marijuana (THC) Screen (NotDetected) 04/23/23 04/23/23 04/23/23 Range/Units 00:35 07:43 07:43 WBC 14.0 H (3.8-10.6) k/uL RBC 4.08 L (4.30-5.90) m/uL MCV 101.2 H (80.0-100.0) fL Neutrophils # 11.4 H (1.3-7.7) k/uL Monocytes # 1.1 H (0-1.0) k/uL APTT (22.0-30.0) sec Potassium 3.2 L (3.5-5.1) mmol/L Chloride 109 H (98-107) mmol/L Carbon Dioxide 21 L (22-30) mmol/L Glucose 116 H (74-99) mg/dL Calcium 8.1 L (8.4-10.2) mg/dL AST 165 H (17-59) U/L Creatine Kinase (55-170) U/L Total Protein 6.0 L (6.3-8.2) g/dL Albumin 3.2 L (3.5-5.0) g/dL U Marijuana (THC) Screen Detected H (NotDetected) 04/23/23 Range/Units 07:43 WBC (3.8-10.6) k/uL RBC (4.30-5.90) m/uL MCV (80.0-100.0) fL Neutrophils # (1.3-7.7) k/uL Monocytes # (0-1.0) k/uL APTT (22.0-30.0) sec Potassium (3.5-5.1) mmol/L Chloride (98-107) mmol/L Carbon Dioxide (22-30) mmol/L Glucose (74-99) mg/dL Calcium (8.4-10.2) mg/dL AST (17-59) U/L Creatine Kinase 48759 H* (55-170) U/L Total Protein (6.3-8.2) g/dL Albumin (3.5-5.0) g/dL U Marijuana (THC) Screen (NotDetected)
[2023-04-23] MEDS: HEPARIN SODIUM,PORCINE/PF 5,000 UNIT/0.5 ML SYRINGE SQ SCH (15:57)
[2023-04-23] MEDS: DULoxetine HCL 30 MG CAPSULE.DR PO SCH (21:05)
[2023-04-24] MEDS: LORazepam 2 MG/ML INJ IV PRN ×6 (00:18→18:42)
[2023-04-24] MEDS: SODIUM CHLORIDE 0.9% 1,000 ML IV SCH ×5 (00:20→17:07)
[2023-04-24] MEDS: HEPARIN SODIUM,PORCINE/PF 5,000 UNIT/0.5 ML SYRINGE SQ SCH ×3 (00:21→16:53)
[2023-04-24] MEDS: LEVOTHYROXINE 137 MCG TAB PO SCH (06:39)
[2023-04-24] MEDS: MULTIVITAMINS, THERA 1 EACH TAB PO SCH (08:20)
[2023-04-24] MEDS: FOLIC ACID 1 MG TAB PO SCH (08:20)
[2023-04-24] MEDS: THIAMINE 100 MG TAB PO SCH (08:20)
[2023-04-24] MEDS: DULoxetine HCL 60 MG CAPSULE.DR PO SCH (08:20)
[2023-04-24] MEDS: METOPROLOL SUCCINATE (ER) 50 MG TAB.ER.24H PO SCH (08:20)
[2023-04-24] MEDS: SYMBICORT 80-4.5 MCG INHALER INHALATION SCH ×2 (09:11→19:32)
[2023-04-24 13:41] LABS: HCT 41.6 % (39.6-50.0); HGB 14.1 d/dL (13.0-17.0); MCH 32.9 pg (27.0-32.0); MCHC 33.9 d/dL (32.0-37.0); MCV 97.2 FL (80.0-97.0); Mean Platelet Volume 9.5 FL (9.5-12.2); NRBC Per 100 WBC 0 X 10*3/uL (0.00-0.01); Platelet Count 302 X 10*3/uL (140-440); RBC 4.28 X 10*6/uL (4.40-5.60); RDW 13.4 % (11.5-14.5); WBC 12.09 X 10*3/uL (4.50-10.00)
--- NOTE | 2023-04-24 14:13 | P.PN ---
Subjective Progress Note Date: 04/24/23 Hospital Course: 52-year-old male with history of alcohol dependence, hypothyroidism, COPD pres enting with rhabdomyolysis. Patient was initially tachycardic to 103, normal blood pressure, saturating well on room air. Laboratory workup showed WBC of 17.8, bicarb 21, anion gap 12, creatinine 0.75, CK 18,000. Patient was started on IV fluids. Per ex-girlfriend patient has been drinking heavily, likely also includes alcohol withdrawal.. Patient also started on IV Ativan as needed. Chest x-ray concerning for mild infiltrate at left base, possible aspiration. Started on IV antibiotics. Subjective: Patient seen and examined at bedside. No acute events overnight. Denies any new complaints. No muscle pain. Pertinent positives and negatives as discussed above, a complete review of systems was performed and all other systems are negative. Vitals Signs Reviewed. General: nontoxic, no distress, appears at stated age, disheveled Derm: warm, dry Head: atraumatic, normocephalic, symmetric Eyes: EOMI, no lid lag, anicteric sclera Mouth: no lip lesion, mucus membranes moist Cardiovascular: S1S2 reg, no murmur Lungs: CTA bilateral, no rhonchi, no rales , no accessory muscle use Abdominal: soft, nontender to palpation, no guarding, no appreciable organomegaly Ext: no gross muscle atrophy, no edema, no contractures Neuro: CN II-XI grossly intact, no focal neuro deficits, resting tremor Psych: Alert, oriented 2, appropriate affect Data Reviewed Today: Pertinent Labs: WBC 12.09, hemoglobin 14.1, BMP pending, will be reviewed when available Imaging: No new imaging Assessment and Plan: Active: Acute rhabdomyolysis Alcohol dependence with withdrawal Aspiration pneumonia Leukocytosis Hypokalemia -Decrease fluids to 75 mL an hour, encourage oral intake -CK has been down trending -Continue to monitor renal function -On CIWA protocol with IV Ativan as needed -Had conversation with his significant other, we will set that he often drinks heavily -Thiamine and folic acid -On ceftriaxone IV -Cultures pending, negative protein -BMP pending, will be reviewed when available Resolved: Chronic: COPD without exacerbation Depression Hypothyroidism DVT ppx: Subcu heparin Code status: Full code Anticipated discharge place: Pending clinical course Anticipated discharge time: Pending clinical course Objective - Vital Signs Vital signs: Vital Signs Temp 98.8 F 04/24/23 07:36 Pulse 91 04/24/23 07:36 Resp 16 04/24/23 07:36 BP 169/86 04/24/23 07:36 Pulse Ox 94 L 04/24/23 09:12 FiO2 Intake & Output 04/23/23 04/24/23 04/24/23 18:59 06:59 18:59 Output Total 1600 2100 1300 Balance -1600 -2100 -1300 Output: Urine 1600 2100 1300 Uretheral (Pina) 300 Other: Voiding Method Indwelling Catheter Indwelling Catheter # Bowel Movements 3 3 1 - Labs CBC & Chem 7: 04/24/23 08:59 04/23/23 07:43 Labs: Abnormal Lab Results - Last 24 Hours (Table) 04/24/23 Range/Units 08:59 WBC 12.09 H (4.50-10.00) X 10*3/uL RBC 4.28 L (4.40-5.60) X 10*6/uL MCV 97.2 H (80.0-97.0) FL MCH 32.9 H (27.0-32.0) pg Microbiology - Last 24 Hours (Table) 04/23/23 07:43 Blood Culture - Preliminary Blood
[2023-04-24 14:23] LABS: Acanthocytes 2+; Basophils # (M) 0 X 10*3/uL (0.00-0.10); Eosinophils # (M) 0.48 X 10*3/uL (0.04-0.35); Lymphocytes # (M) 1.81 X 10*3/uL (0.90-5.00); Monocytes # (M) 0.73 X 10*3/uL (0.20-1.00); Neutrophils # (M) 9.07 X 10*3/uL (1.80-7.70); Neutrophils % (M) 75 %
[2023-04-24 15:03] LABS: BUN/Creat Ratio 8.71 Ratio (12.00-20.00); Blood Urea Nitrogen 6.1 mg/dL (9.0-27.0); Calcium 8.8 mg/dL (8.7-10.3); Chloride 102 mmol/L (96-109); Glucose 108 mg/dL (70-110); Potassium 3.4 mmol/L (3.5-5.5); Sodium 136 mmol/L (135-145)
--- NOTE | 2023-04-24 17:16 | CDI ---
Documentation Clarification Form Date: 04/24/2023 05:01:00 PM From: Yanci Moore RN, CCDS Admit Date: 04/22/2023 10:44:00 PM Patient Name: Zeke Frances Visit Number: [id number] Discharge Date: ATTENTION: The Clinical Documentation Specialists (CDI) and [facility] Coding Staff appreciate your assistance in clarifying documentation. Please respond to the clarification below the line at the bottom and electronically sign. The CDI & [facility] Coding staff will review the response and follow-up if needed. Please note: Queries are made part of the Legal Health Record. If you have any questions, please contact the author of this message via ITS. Dr. Neela Vallecillo Acute rhabdomyolysis is documented in the H/P and subsequent progress note. Additional clarification regarding the type of rhabdomyolysis is requested. History/Risk Factors: coronary Artery Disease (CAD), Hypertension, Myocardial Infarction ([place]), Thyroid Disorder ETOH, Current every day smoker Clinical Indicators: 52-year-old male present to ED via EMS after being found down in his apartment. EMS reports that the patient's landlord had not seen him in a couple of days and went to check on him and found him lying on his kitchen floor soiled with urine and very dirty. 04/22 VS: 142/98 103 22 98.2 94 % RA 04/22 Labs: WBC 17. 8 Neutrophils 15.3 Creatine Kinase 63998 04/23 Creatine Kinase 17432 Treatment: .9INS 2,000 ML Bolus 04/22, then 200 ML HR 75 ML/HR 04/22-04/24 .9NS @ 75 ML HR 04/24 Monitor vs, renal function Please clarify the type of rhabdomyolysis, if known: [ ] Traumatic rhabdomyolysis due to fall [ x ] Traumatic rhabdomyolysis due to prolonged immobility [ ] Non traumatic rhabdomyolysis due to infection, (please specify) ____ [ ] Other, please specify [ ] Unable to Determine (Template Last Revised: November 2020) MTDD
[2023-04-24] MEDS ORDERED: POTASSIUM CHLORIDE ER 20 MEQ TAB.ER PO STA (17:45)
[2023-04-24] MEDS: DULoxetine HCL 30 MG CAPSULE.DR PO SCH (20:05)
[2023-04-25] MEDS: HEPARIN SODIUM,PORCINE/PF 5,000 UNIT/0.5 ML SYRINGE SQ SCH ×3 (00:36→16:36)
[2023-04-25] MEDS: LEVOTHYROXINE 137 MCG TAB PO SCH (06:37)
[2023-04-25] MEDS: SYMBICORT 80-4.5 MCG INHALER INHALATION SCH ×2 (07:43→19:42)
[2023-04-25] MEDS: THIAMINE 100 MG TAB PO SCH (09:23)
[2023-04-25] MEDS: FOLIC ACID 1 MG TAB PO SCH (09:23)
[2023-04-25] MEDS: METOPROLOL SUCCINATE (ER) 50 MG TAB.ER.24H PO SCH (09:24)
[2023-04-25] MEDS: DULoxetine HCL 60 MG CAPSULE.DR PO SCH (09:24)
[2023-04-25] MEDS: MULTIVITAMINS, THERA 1 EACH TAB PO SCH (09:24)
[2023-04-25 10:10] LABS: Basophils # (A) 0.09 X 10*3/uL (0.00-0.10); Basophils % (A) 0.9 %; Eosinophils # (A) 0.39 X 10*3/uL (0.04-0.35); Eosinophils % (A) 3.7 %; HCT 46.1 % (39.6-50.0); HGB 15.6 d/dL (13.0-17.0); Lymphocytes # (A) 2.16 X 10*3/uL (0.90-5.00); Lymphocytes % (A) 20.7 %; MCH 32.8 pg (27.0-32.0); MCHC 33.8 d/dL (32.0-37.0); MCV 96.8 FL (80.0-97.0); Mean Platelet Volume 10.1 FL (9.5-12.2); Monocytes # (A) 1.48 X 10*3/uL (0.20-1.00); Monocytes % (A) 14.2 %; NRBC Per 100 WBC 0 X 10*3/uL (0.00-0.01); Neutrophils # (A) 6.24 X 10*3/uL (1.80-7.70); Platelet Count 342 X 10*3/uL (140-440); RBC 4.76 X 10*6/uL (4.40-5.60); RDW 13.2 % (11.5-14.5); WBC 10.41 X 10*3/uL (4.50-10.00)
[2023-04-25 11:30] LABS: BUN/Creat Ratio 8.12 Ratio (12.00-20.00); Blood Urea Nitrogen 6.5 mg/dL (9.0-27.0); Carbon Dioxide 20.3 mmol/L (21.6-31.8); Chloride 100 mmol/L (96-109); Glucose 76 mg/dL (70-110); Magnesium 1.9 mg/dL (1.5-2.4); Potassium 3.9 mmol/L (3.5-5.5); Sodium 136 mmol/L (135-145)
--- NOTE | 2023-04-25 14:54 | P.PN ---
Subjective Progress Note Date: 04/25/23 Hospital Course: 52-year-old male with history of alcohol dependence, hypothyroidism, COPD presenting with rhabdomyolysis. Patient was initially tachycardic to 103, normal blood pressure, saturating well on room air. Laboratory workup showed WBC of 17.8, bicarb 21, anion gap 12, creatinine 0.75, CK 18,000. Patient was started on IV fluids. Per ex-girlfriend patient has been drinking heavily, likely also going through alcohol withdrawal.. Patient also started on IV Ativan as needed. Chest x-ray concerning for mild infiltrate at left base, possible aspiration. Started on IV antibiotics. Encephalopathy improving. Patient also had a bedside sitter. Subjective: Patient seen and examined at bedside. No acute events overnight. Denies any new complaints. No muscle pain. Pertinent positives and negatives as discussed above, a complete review of systems was performed and all other systems are negative. Vitals Signs Reviewed. General: nontoxic, no distress, appears at stated age, disheveled Derm: warm, dry Head: atraumatic, normocephalic, symmetric Eyes: EOMI, no lid lag, anicteric sclera Mouth: no lip lesion, mucus membranes moist Cardiovascular: S1S2 reg, no murmur Lungs: CTA bilateral, no rhonchi, no rales , no accessory muscle use Abdominal: soft, nontender to palpation, no guarding, no appreciable organomegaly Ext: no gross muscle atrophy, no edema, no contractures Neuro: CN II-XI grossly intact, no focal neuro deficits, resting tremor Psych: Alert, oriented 2, appropriate affect Data Reviewed Today: Pertinent Labs: WBC 10.41, hemoglobin 15.6, sodium 136, potassium 3.9, creatinine 0.8, magnesium 1.9, blood cultures negative growth to date Imaging: No new imaging Assessment and Plan: Active: Acute rhabdomyolysis Alcohol dependence with withdrawal Aspiration pneumonia Leukocytosis, resolved Hypokalemia, resolved -On normal saline 75 mL an hour, encourage oral intake -CK has been down trending -Continue to monitor renal function -On CIWA protocol with IV Ativan as needed, last dose yesterday evening -Patient still not completely oriented, will likely benefit from another day of hospitalization -Thiamine and folic acid -On ceftriaxone IV -Cultures negative growth to date Resolved: Chronic: COPD without exacerbation Depression Hypothyroidism DVT ppx: Subcu heparin Code status: Full code Anticipated discharge place: Home Anticipated discharge time: Likely tomorrow Objective - Vital Signs Vital signs: Vital Signs Temp 98.2 F 04/25/23 13:45 Pulse 70 04/25/23 13:45 Resp 17 04/25/23 13:45 BP 174/70 04/25/23 13:45 Pulse Ox 99 04/25/23 13:45 FiO2 Intake & Output 04/24/23 04/25/23 04/25/23 18:59 06:59 18:59 Output Total 1300 Balance -1300 Output: Urine 1300 Uretheral (Pina) 300 Other: Voiding Method Toilet # Voids 6 # Bowel Movements 1 - Labs CBC & Chem 7: 04/25/23 05:50 04/25/23 05:50 Labs: Abnormal Lab Results - Last 24 Hours (Table) 04/24/23 04/25/23 04/25/23 Range/Units 08:59 05:50 05:50 WBC 10.41 H (4.50-10.00) X 10*3/uL MCH 32.8 H (27.0-32.0) pg Monocytes # 1.48 H (0.20-1.00) X 10*3/uL Eosinophils # 0.39 H (0.04-0.35) X 10*3/uL Potassium 3.4 L (3.5-5.5) mmol/L Carbon Dioxide 20.3 L (21.6-31.8) mmol/L Anion Gap 15.70 H (4.00-12.00) mmol/L BUN 6.1 L 6.5 L (9.0-27.0) mg/dL BUN/Creatinine Ratio 8.71 L 8.12 L (12.00-20.00) Ratio Microbiology - Last 24 Hours (Table) 04/23/23 07:43 Blood Culture - Preliminary Blood
[2023-04-25] MEDS: SODIUM CHLORIDE 0.9% 1,000 ML IV SCH (16:36)
[2023-04-25] MEDS: DULoxetine HCL 30 MG CAPSULE.DR PO SCH (21:02)
[2023-04-26] MEDS: HEPARIN SODIUM,PORCINE/PF 5,000 UNIT/0.5 ML SYRINGE SQ SCH ×3 (02:47→17:49)
[2023-04-26] MEDS: LEVOTHYROXINE 137 MCG TAB PO SCH (06:28)
[2023-04-26] MEDS: SODIUM CHLORIDE 0.9% 1,000 ML IV SCH ×2 (06:28→21:09)
[2023-04-26] MEDS: SYMBICORT 80-4.5 MCG INHALER INHALATION SCH ×2 (09:23→20:15)
[2023-04-26] MEDS: MULTIVITAMINS, THERA 1 EACH TAB PO SCH (10:12)
[2023-04-26] MEDS: DULoxetine HCL 60 MG CAPSULE.DR PO SCH (10:12)
[2023-04-26] MEDS: THIAMINE 100 MG TAB PO SCH (10:13)
[2023-04-26] MEDS: FOLIC ACID 1 MG TAB PO SCH (10:13)
[2023-04-26] MEDS: METOPROLOL SUCCINATE (ER) 50 MG TAB.ER.24H PO SCH (10:18)
--- NOTE | 2023-04-26 12:23 | P.DS ---
Providers Date of admission: 04/22/23 22:44 Expected date of discharge: 04/26/23 Attending physician: Beatrice Cancino MD Primary care physician: Physician Nonstaff Hospital Course: Discharge Diagnosis: Acute rhabdomyolysis Alcohol dependence with withdrawal Aspiration pneumonia Leukocytosis Hypokalemia COPD without exacerbation Depression Hypothyroidism Hospital Course: 52-year-old male with history of alcohol dependence, hypothyroidism, COPD presenting with rhabdomyolysis. Patient was initially tachycardic to 103, normal blood pressure, saturating well on room air. Laboratory workup showed WBC of 17.8, bicarb 21, anion gap 12, creatinine 0.75, CK 18,000. Patient was started on IV fluids. Per ex-girlfriend patient has been drinking heavily, likely also going through alcohol withdrawal.. Patient also started on IV Ativan as needed. Chest x-ray concerning for mild infiltrate at left base, possible aspiration. Started on IV antibiotics. Encephalopathy improved. Patient's mental status normal at the time of discharge. Not requiring any Ativan. Also being discharged on a short course of oral antibiotics. Patient seen and examined at bedside. Vital signs reviewed and stable. General: nontoxic, no distress, appears at stated age, disheveled Derm: warm, dry Head: atraumatic, normocephalic, symmetric Eyes: EOMI, no lid lag, anicteric sclera Mouth: no lip lesion, mucus membranes moist Cardiovascular: S1S2 reg, no murmur Lungs: CTA bilateral, no rhonchi, no rales , no accessory muscle use Abdominal: soft, nontender to palpation, no guarding, no appreciable organomegaly Ext: no gross muscle atrophy, no edema, no contractures Neuro: CN II-XI grossly intact, no focal neuro deficits, resting tremor Psych: Alert, oriented 2, appropriate affect A total of 36 minutes of time were spent preparing this complex discharge summary. Patient was discharged on 04/26/20 11:14. Patient Condition at Discharge: Stable Plan - Discharge Summary Discharge Rx Participant: Yes New Discharge Prescriptions: New Cefdinir [Omnicef] 300 mg PO Q12HR #2 capsule Continue Albuterol Inhaler [Ventolin Hfa Inhaler] 2 puff INHALATION RT-Q6H PRN 30 Days #1 each PRN Reason: Shortness Of Breath Thiamine [Vitamin B-1] 100 mg PO DAILY 30 Days #30 tab QUEtiapine [SEROquel] 25 mg PO BID PRN PRN Reason: Anxiety DULoxetine HCL [Cymbalta] 60 mg PO DAILY Cetirizine HCl 10 mg PO DAILY Nitroglycerin Sl Tabs [Nitrostat] 0.4 mg SUBLINGUAL Q5M PRN 30 Days #10 tab PRN Reason: Chest Pain Metoprolol Succinate (ER) [Toprol XL] 50 mg PO DAILY 30 Days #30 tab Budesonide/Formoterol Fumarate [Symbicort 80-4.5 Mcg Inhaler] 1 puff INHALATION RT-BID 30 Days #1 each Folic Acid 1 mg PO DAILY Levothyroxine Sodium [Synthroid] 137 mcg PO DAILY Multivitamin With Folic Acid 400 Mcg Tab 1 tab PO DAILY DULoxetine HCL [Cymbalta] 30 mg PO DAILY Gabapentin [Neurontin] 300 mg PO DAILY@1200 Gabapentin [Neurontin] 600 mg PO BID Discontinued traZODone HCL [Desyrel] 50 mg PO HS Discharge Medication List Albuterol Inhaler [Ventolin Hfa Inhaler] 2 puff INHALATION RT-Q6H PRN 30 Days #1 each 12/08/22 [Rx] Budesonide/Formoterol Fumarate [Symbicort 80-4.5 Mcg Inhaler] 1 puff INHALATION RT-BID 30 Days #1 each 12/08/22 [Rx] Metoprolol Succinate (ER) [Toprol XL] 50 mg PO DAILY 30 Days #30 tab 12/08/22 [Rx] Nitroglycerin Sl Tabs [Nitrostat] 0.4 mg SUBLINGUAL Q5M PRN 30 Days #10 tab 12/08/22 [Rx] Thiamine [Vitamin B-1] 100 mg PO DAILY 30 Days #30 tab 12/08/22 [Rx] Cetirizine HCl 10 mg PO DAILY 04/22/23 [History] DULoxetine HCL [Cymbalta] 30 mg PO DAILY 04/22/23 [History] DULoxetine HCL [Cymbalta] 60 mg PO DAILY 04/22/23 [History] Folic Acid 1 mg PO DAILY 04/22/23 [History] Gabapentin [Neurontin] 300 mg PO DAILY@1200 04/22/23 [History] Gabapentin [Neurontin] 600 mg PO BID 04/22/23 [History] Levothyroxine Sodium [Synthroid] 137 mcg PO DAILY 04/22/23 [History] Multivitamin With Folic Acid 400 Mcg Tab 1 tab PO DAILY 04/22/23 [History] QUEtiapine [SEROquel] 25 mg PO BID PRN 04/22/23 [History] Cefdinir [Omnicef] 300 mg PO Q12HR #2 capsule 04/26/23 [Rx] Follow up Appointment(s)/Referral(s): Nonstaff,Physician [Primary Care Provider] - 1-2 days Patient Instructions/Handouts: Rhabdomyolysis (DC), Abuse of Alcohol (DC), Alcohol Withdrawal (DC), Alcohol Dependence (DC) Activity/Diet/Wound Care/Special Instructions: Please see your PCP. Discharge/Stand Alone Forms: AA [facility], Outpatient Counseling, Inp Substance Abuse Facilities Discharge Disposition: HOME SELF-CARE
[2023-04-26] MEDS: DULoxetine HCL 30 MG CAPSULE.DR PO SCH (21:10)
[2023-04-26] MEDS: ACETAMINOPHEN TAB 325 MG TAB PO PRN (21:10)
[2023-04-27] MEDS: HEPARIN SODIUM,PORCINE/PF 5,000 UNIT/0.5 ML SYRINGE SQ SCH ×3 (00:36→17:15)
[2023-04-27] MEDS: LEVOTHYROXINE 137 MCG TAB PO SCH (05:26)
[2023-04-27] MEDS: METOPROLOL SUCCINATE (ER) 50 MG TAB.ER.24H PO SCH (08:26)
[2023-04-27] MEDS: DULoxetine HCL 60 MG CAPSULE.DR PO SCH (08:26)
[2023-04-27] MEDS: FOLIC ACID 1 MG TAB PO SCH (08:26)
[2023-04-27] MEDS: MULTIVITAMINS, THERA 1 EACH TAB PO SCH (08:26)
[2023-04-27] MEDS: THIAMINE 100 MG TAB PO SCH (08:26)
[2023-04-27] MEDS: lisinopriL 10 MG TAB PO SCH (08:38)
[2023-04-27] MEDS: amLODIPine 5 MG TAB PO SCH (08:38)
--- NOTE | 2023-04-27 16:54 | P.PN ---
Subjective Progress Note Date: 04/27/23 Hospital Course: 52-year-old male with history of alcohol dependence, hypothyroidism, COPD presenting with rhabdomyolysis. Patient was initially tachycardic to 103, normal blood pressure, saturating well on room air. Laboratory workup showed WBC of 17.8, bicarb 21, anion gap 12, creatinine 0.75, CK 18,000. Patient was started on IV fluids. Per ex-girlfriend patient has been drinking heavily, likely also going through alcohol withdrawal.. Patient also started on IV Ativan as needed. Chest x-ray concerning for mild infiltrate at left base, possible aspiration. Started on IV antibiotics. Encephalopathy improved. Difficulty with disposition as patient is homeless. Trying to get him to [facility]. If not accepted, would need to be sent to a long term. Subjective: Patient seen and examined at bedside. No acute events overnight. Denies any new complaints. No muscle pain. Pertinent positives and negatives as discussed above, a complete review of systems was performed and all other systems are negative. Vitals Signs Reviewed. General: nontoxic, no distress, appears at stated age, disheveled Derm: warm, dry Head: atraumatic, normocephalic, symmetric Eyes: EOMI, no lid lag, anicteric sclera Mouth: no lip lesion, mucus membranes moist Cardiovascular: S1S2 reg, no murmur Lungs: CTA bilateral, no rhonchi, no rales , no accessory muscle use Abdominal: soft, nontender to palpation, no guarding, no appreciable organomegaly Ext: no gross muscle atrophy, no edema, no contractures Neuro: CN II-XI grossly intact, no focal neuro deficits, resting tremor Psych: Alert, oriented 3, appropriate affect Data Reviewed Today: Pertinent Labs: No new labs Imaging: No new imaging Assessment and Plan: Active: Acute rhabdomyolysis Alcohol dependence with withdrawal Aspiration pneumonia Leukocytosis, resolved Hypokalemia, resolved -Continue oral intake -Thiamine and folic acid -5 day course of antibiotics -Cultures negative growth to date Resolved: Chronic: COPD without exacerbation Depression Hypothyroidism DVT ppx: Subcu heparin Code status: Full code Anticipated discharge place: [place] versus long term Anticipated discharge time: Likely today or tomorrow Objective - Vital Signs Vital signs: Vital Signs Temp 98.1 F 04/27/23 07:17 Pulse 60 04/27/23 07:17 Resp 16 04/27/23 07:17 BP 175/70 04/27/23 07:17 Pulse Ox 96 04/27/23 07:17 FiO2 Intake & Output 04/26/23 04/27/23 04/27/23 18:59 06:59 18:59 Other: Voiding Method Toilet # Voids 3 2 # Bowel Movements 2 - Labs CBC & Chem 7: 04/25/23 05:50 04/25/23 05:50 Labs: Abnormal Lab Results - Last 24 Hours (Table) 04/24/23 Range/Units 08:59 Neutrophils # (Manual) 9.07 H (1.80-7.70) X 10*3/uL Microbiology - Last 24 Hours (Table) 04/23/23 07:43 Blood Culture - Preliminary Blood
[2023-04-27] MEDS: SODIUM CHLORIDE 0.9% 1,000 ML IV SCH ×2 (17:15→20:25)
[2023-04-27] MEDS: DULoxetine HCL 30 MG CAPSULE.DR PO SCH (20:27)
[2023-04-27] MEDS: SYMBICORT 80-4.5 MCG INHALER INHALATION SCH ×2 (20:27→21:36)
[2023-04-27] MEDS: ACETAMINOPHEN TAB 325 MG TAB PO PRN (20:31)
[2023-04-28] MEDS: HEPARIN SODIUM,PORCINE/PF 5,000 UNIT/0.5 ML SYRINGE SQ SCH ×4 (01:13→22:40)
[2023-04-28] MEDS: CEFDINIR 300 MG CAP PO SCH ×2 (04:19→09:21)
[2023-04-28] MEDS: LEVOTHYROXINE 137 MCG TAB PO SCH (05:43)
[2023-04-28] MEDS: SYMBICORT 80-4.5 MCG INHALER INHALATION SCH ×2 (08:31→20:48)
[2023-04-28] MEDS: THIAMINE 100 MG TAB PO SCH (09:20)
[2023-04-28] MEDS: amLODIPine 5 MG TAB PO SCH (09:20)
[2023-04-28] MEDS: DULoxetine HCL 60 MG CAPSULE.DR PO SCH (09:21)
[2023-04-28] MEDS: FOLIC ACID 1 MG TAB PO SCH (09:21)
[2023-04-28] MEDS: METOPROLOL SUCCINATE (ER) 50 MG TAB.ER.24H PO SCH (09:21)
[2023-04-28] MEDS: lisinopriL 10 MG TAB PO SCH (09:21)
[2023-04-28] MEDS: MULTIVITAMINS, THERA 1 EACH TAB PO SCH (09:21)
[2023-04-28 13:40] VITALS: BMI 29.0
[2023-04-28] MEDS: SODIUM CHLORIDE 0.9% 1,000 ML IV SCH ×2 (15:12→22:40)
--- NOTE | 2023-04-28 17:42 | P.PN ---
Subjective Progress Note Date: 04/28/23 Patient is a 52-year-old male with known alcohol dependency, hypothyroidism, and COPD who presented via EMS after being found on the floor covered in urine and unresponsive. She believes she was going through alcohol withdrawal should not bottom alcohol in a few days. In the ER he underwent extensive evaluation. White blood cell count 17.8, CK 18,182. Urine drug screen was positive for marijuana. Alcohol level of less than 10. CT head no acute process. Chest x- ray demonstrated pneumonia and possible pulmonary contusion. He was admitted and was started on IV fluids and empiric antibiotics. His encephalopathy improved. He was not requiring any Ativan. His CK improved. He initially was determined stable for discharge. He then stated he wanted to go to [place], and then [place]. Patient seen and examined at bedside. Wave of dizziness that is worse on laying flat and sometimes gets better with standing. It is new today he reports it is rather disconcerting. After a thorough review of his medications and does not appear he has had duloxitine filled in the last 180 days. I did ask the patient and initially he instited that he was taking this medication. Then when explained by had any filled 180 days he states he is unsure of his medications is just takes whatever is filled at [facility]. Vital signs reviewed General: nontoxic, no distress, appears at stated age Cardiovascular: S1S2 reg, no murmur, positive posterior tibial pulse bilateral, Lungs: CTA bilateral, no rhonchi, no rales , no accessory muscle use Abdominal: soft, nontender to palpation, no guarding, no appreciable organomegaly Ext: no gross muscle atrophy, no edema b/l lower extremities, no contractures Neuro: CN II-XI grossly intact, no focal neuro deficits Psych: A & O, appropraite affect Assessment/Plan: Acute rhabdomyolysis Dependency with withdrawal Aspiration pneumonia Hypokalemia Acute toxic metabolic encephalopathy COPD without exacerbation Depression Hypothyroidism Imaging: None Data Review: Review temperature 97.5, pulse 60, respirations 14, blood pressure 148/76, O2 sat 97% Plan: - stop cymbalta. Ortho statics negative. Tele - ABX completed and cefdinir stopped. -Continue his Norvasc 5 mg daily, lisinopril 10 mg daily, metoprolol 50 mg daily -Stop IV fluids -Continue with thiamine 100 mg daily -Continue Synthroid 137 g daily -Initially patient also sclera [place] and then was looking for her shoulders. Still was unable to obtain any and had worsening dizziness. We'll monitor for 24 hours off of Cymbalta. This dictation was prepared using [email or web address] voice recognition software. Though every attempt is made to correct errors during dictation some may still exist. Objective - Vital Signs Vital signs: Vital Signs Temp 98.2 F 04/28/23 13:54 Pulse 70 04/28/23 13:54 Resp 14 04/28/23 13:54 BP 110/65 04/28/23 13:54 Pulse Ox 98 04/28/23 13:54 FiO2 Intake & Output 04/27/23 04/28/23 04/28/23 18:59 06:59 18:59 Intake Total 1080 Balance 1080 Weight 81.647 kg Intake: Oral 1080 Other: Voiding Method Toilet # Voids 3 2 # Bowel Movements 1 - Labs CBC & Chem 7: 04/25/23 05:50 04/25/23 05:50 Labs: Microbiology - Last 24 Hours (Table) 04/23/23 07:43 Blood Culture - Final Blood
[2023-04-29] MEDS: LEVOTHYROXINE 137 MCG TAB PO SCH (05:55)
[2023-04-29 07:35] VITALS: RESP 16
[2023-04-29 07:39] LABS: HCT 49.6 % (39.0-53.0); HGB 16.6 gm/dL (13.0-17.5); MCH 33.2 pg (25.0-35.0); MCHC 33.4 g/dL (31.0-37.0); MCV 99.4 fL (80.0-100.0); Mean Platelet Volume 7.2; Platelet Count 407 k/uL (150-450); RBC 4.99 m/uL (4.30-5.90); RDW 13.5 % (11.5-15.5)
[2023-04-29 07:48] LABS: African American GFR (CKD) >90 (>60 ml/min/1.73 sqM); Anion Gap 7 mmol/L; Blood Urea Nitrogen 5 mg/dL (9-20); Calcium 9.3 mg/dL (8.4-10.2); Carbon Dioxide 27 mmol/L (22-30); Chloride 103 mmol/L (98-107); Glucose 109 mg/dL (74-99); Non-African American GFR(CKD) >90 (>60 ml/min/1.73 sqM); Sodium 137 mmol/L (137-145)
[2023-04-29] MEDS: SYMBICORT 80-4.5 MCG INHALER INHALATION SCH (08:35)
[2023-04-29] MEDS: THIAMINE 100 MG TAB PO SCH (09:12)
[2023-04-29] MEDS: MULTIVITAMINS, THERA 1 EACH TAB PO SCH (09:12)
[2023-04-29] MEDS: METOPROLOL SUCCINATE (ER) 50 MG TAB.ER.24H PO SCH (09:12)
[2023-04-29] MEDS: FOLIC ACID 1 MG TAB PO SCH (09:12)
[2023-04-29] MEDS: lisinopriL 10 MG TAB PO SCH (09:12)
[2023-04-29] MEDS: amLODIPine 5 MG TAB PO SCH (09:12)
[2023-04-29] MEDS: HEPARIN SODIUM,PORCINE/PF 5,000 UNIT/0.5 ML SYRINGE SQ SCH ×2 (09:13→15:12)
--- NOTE | 2023-04-29 09:27 | P.DS ---
Providers Date of admission: 04/22/23 22:44 Expected date of discharge: 04/29/23 Attending physician: Beatrice Cancino MD Primary care physician: Physician Nonstaff Hospital Course: Discharge Diagnosis: Acute Traumatic rhabdomyolysis- due to immobility Dizziness due to cymbalta Dependency with withdrawal Aspiration pneumonia Hypokalemia Acute toxic metabolic encephalopathy COPD without exacerbation Depression Hypothyroidism Hospital Course: Patient is a 52-year-old male with known alcohol dependency, hypothyroidism, and COPD who presented via EMS after being found on the floor covered in urine and unresponsive. She believes she was going through alcohol withdrawal should not bottom alcohol in a few days. In the ER he underwent extensive evaluation. White blood cell count 17.8, CK 18,182. Urine drug screen was positive for marijuana. Alcohol level of less than 10. CT head no acute process. Chest x- ray demonstrated pneumonia and possible pulmonary contusion. He was admitted and was started on IV fluids and empiric antibiotics. His encephalopathy improved. He was not requiring any Ativan. His CK improved. He initially was determined stable for discharge. He then stated he wanted to go to [place], and then [place]. He developed some dizziness and it was discovered that his home meds were incorrect and he was not taking cymbalta at home, this was discontinued and he had some improvement in his dizziness. He was accepted to the 1 year sobriety program at [facility]. He was discharged in stable condition. New Medications: lisinopril, Norvasc, Follow-up with PCP. Patient seen and examined at bedside. No chest pain or shortness of breath. Dizziness is less frequent than yesterday. Vital signs reviewed and stable. General: nontoxic, no distress, appears at stated age Cardiovascular: S1S2 reg, no murmur, positive posterior tibial pulse bilateral, Lungs: CTA bilateral, no rhonchi, no rales , no accessory muscle use Abdominal: soft, nontender to palpation, no guarding, no appreciable organomegaly Ext: no gross muscle atrophy, no edema b/l lower extremities, no contractures Neuro: CN II-XI grossly intact, no focal neuro deficits Psych: Alert, oriented, appropriate affect A total of 32 minutes of time were spent preparing this complex discharge summary. Patient was discharged on 04/29/23. This dictation was prepared using [employer] recognition software. Though every attempt is made to correct errors during dictation some may still exist. Patient Condition at Discharge: Stable Plan - Discharge Summary Discharge Rx Participant: Yes New Discharge Prescriptions: New amLODIPine [Norvasc] 5 mg PO DAILY #30 tab lisinopriL [Zestril] 10 mg PO DAILY #30 tab Continue Multivitamin With Folic Acid 400 Mcg Tab 1 tab PO DAILY #30 Nitroglycerin Sl Tabs [Nitrostat] 0.4 mg SUBLINGUAL Q5M PRN 30 Days #10 tab PRN Reason: Chest Pain Budesonide/Formoterol Fumarate [Symbicort 80-4.5 Mcg Inhaler] 1 puff INHALATION RT-BID 30 Days #1 each Albuterol Inhaler [Ventolin Hfa Inhaler] 2 puff INHALATION RT-Q6H PRN 30 Days #1 each PRN Reason: Shortness Of Breath Thiamine [Vitamin B-1] 100 mg PO DAILY 30 Days #30 tab Metoprolol Succinate (ER) [Toprol XL] 50 mg PO DAILY 30 Days #30 tab Changed Levothyroxine Sodium [Synthroid] 137 mcg PO DAILY #30 tab Folic Acid 1 mg PO DAILY #30 tab Discontinued traZODone HCL [Desyrel] 50 mg PO HS QUEtiapine [SEROquel] 25 mg PO BID PRN PRN Reason: Anxiety DULoxetine HCL [Cymbalta] 60 mg PO DAILY Cetirizine HCl 10 mg PO DAILY DULoxetine HCL [Cymbalta] 30 mg PO DAILY Gabapentin [Neurontin] 300 mg PO DAILY@1200 Gabapentin [Neurontin] 600 mg PO BID Discharge Medication List Albuterol Inhaler [Ventolin Hfa Inhaler] 2 puff INHALATION RT-Q6H PRN 30 Days #1 each 04/27/23 [Rx] Budesonide/Formoterol Fumarate [Symbicort 80-4.5 Mcg Inhaler] 1 puff INHALATION RT-BID 30 Days #1 each 04/27/23 [Rx] Folic Acid 1 mg PO DAILY #30 tab 04/27/23 [Rx] Levothyroxine Sodium [Synthroid] 137 mcg PO DAILY #30 tab 04/27/23 [Rx] Metoprolol Succinate (ER) [Toprol XL] 50 mg PO DAILY 30 Days #30 tab 04/27/23 [Rx] Multivitamin With Folic Acid 400 Mcg Tab 1 tab PO DAILY #30 04/27/23 [Rx] Nitroglycerin Sl Tabs [Nitrostat] 0.4 mg SUBLINGUAL Q5M PRN 30 Days #10 tab 04/27/23 [Rx] Thiamine [Vitamin B-1] 100 mg PO DAILY 30 Days #30 tab 04/27/23 [Rx] amLODIPine [Norvasc] 5 mg PO DAILY #30 tab 04/27/23 [Rx] lisinopriL [Zestril] 10 mg PO DAILY #30 tab 04/27/23 [Rx] Follow up Appointment(s)/Referral(s): Nonstaff,Physician [Primary Care Provider] - 1-2 days Patient Instructions/Handouts: Rhabdomyolysis (DC), Abuse of Alcohol (DC), Alcohol Withdrawal (DC), Alcohol Dependence (DC) Activity/Diet/Wound Care/Special Instructions: Please see your PCP. Take medications as prescribed. Your dizziness should improve over the next several days as you get further from the [facility]. We wish you well on your journey to maintain sobriety. Discharge/Stand Alone Forms: AA Meetings [facility], [facility], Outpatient Counseling, Inp Substance Abuse Facilities Discharge Disposition: OTHER INSTITUTION NOT DEFINED
[2023-04-29 14:54] VITALS: BP 148/68; PULSE 72; TEMP 97.9
== END 2023-04-29 16:59 | disposition home or self-care (01) | DRG 775 ==
LOC: EC 19:08 → 4SSUR 22:44
PROVIDERS: ADMIT Internal Medicine; ATTEND Internal Medicine
DX: F10.239 Alcohol dependence with withdrawal, unspecified (principal); J69.0 Pneumonitis due to inhalation of food and vomit; T79.6XXA Traumatic ischemia of muscle, initial encounter; J44.9 Chronic obstructive pulmonary disease, unspecified; G92.8 Other toxic encephalopathy; S27.329A Contusion of lung, unspecified, initial encounter; L89.891 Pressure ulcer of other site, stage 1; E03.9 Hypothyroidism, unspecified; I10 Essential (primary) hypertension; F32.A Depression, unspecified; I25.10 Atherosclerotic heart disease of native coronary artery without angina pectoris; F17.210 Nicotine dependence, cigarettes, uncomplicated; S00.31XA Abrasion of nose, initial encounter; E87.6 Hypokalemia; T43.215A Adverse effect of selective serotonin and norepinephrine reuptake inhibitors, initial encounter; Y90.0 Blood alcohol level of less than 20 mg/100 ml; Y92.039 Unspecified place in apartment as the place of occurrence of the external cause; Z28.310 Unvaccinated for COVID-19; Z79.891 Long term (current) use of opiate analgesic; Z79.890 Hormone replacement therapy; Z79.51 Long term (current) use of inhaled steroids; Z88.8 Allergy status to other drugs, medicaments and biological substances; I25.2 Old myocardial infarction; Z79.899 Other long term (current) drug therapy
CPT/HCPCS: 36415; 70450; 71046; 80048; 80053; 80306; 80320; 82140; 82550; 83605; 83735; 84484; 85025; 85027; 85610; 85730; 87040; 93005; 94640; 94760; 96360; 99285